=== PATIENT | male | born 1945 | race Caucasian/White ===

== ENCOUNTER 2018-09-20 08:29 | Inpatient (IN) | payer MEDICARE, OTHER, SELFPAY ==
[2018-09-20] VITALS (29 sets, daily range): BP systolic 96–170; BP diastolic 55–100; PULSE 45–88; RESP 14–27; TEMP 36.1–36.7; O2SAT 23–100; BMI 29.2; BMI 29.3
--- NOTE | 2018-09-20 08:46 | RAD_ITS ---
STUDY: X-RAY CHEST REASON FOR EXAM: Male, 73 years old. Chest pain. Shortness of breath. TECHNIQUE: Single AP portable view of the chest. COMPARISON: None. FINDINGS: EKG electrodes are seen. Mild increased linear markings at the lung bases suggests mild scarring. I suspect bilateral pleural plaques. This slightly more prominent on the right side. Normal size heart. Normal mediastinum and claire. Normal visualized pulmonary arteries. Normal visualized aortic arch and descending thoracic aorta. There are degenerative changes of the visualized thoracic spine. An anchor clip is seen overlying the left humeral head suggestive of prior rotator cuff surgery. There is no demonstrated abnormality of the visualized soft tissue structures of the upper abdomen. RAD/Chest 1 View (Portable) IMPRESSION: Findings suggest bilateral pleural plaques likely worse on the right side with mild linear scarring at the lung bases. Electronically Signed: Vini Wilburn MD at 9:29 EST Tel [phone], Service support ,
--- NOTE | 2018-09-20 08:46 | EKG12_ITS ---
Test Reason : Blood Pressure : / mmHG Vent. Rate : 064 BPM Atrial Rate : 064 BPM P-R Int : 156 ms QRS Dur : 076 ms QT Int : 408 ms P-R-T Axes : 057 026 011 degrees QTc Int : 420 ms Sinus rhythm with Premature atrial complexes with Aberrant conduction Possible Inferior infarct , age undetermined Abnormal ECG Confirmed by SATHISH POST, SHAHLA ([id number]), fashion editor CONSTANTINE SIMPSON ([id number]) on 09/21/2018 11:53:43 AM Referred By: CHRISTINA Confirmed By:SHAHLA BOWER MD
--- NOTE | 2018-09-20 08:49 | ED.VIS.GEN ---
History of Present Illness Chief Complaint: Chest Pain Informant: Patient, Family Onset: Weeks - 3-4 Context: Onset with activity Timing: Intermittent, Lasts - 15-20 min w/ most episodes Quality: tightness Location: left chest Current Severity: Moderate Maximum Severity: Moderate Worsened by: exertion, yawning/deep breathing Relieved by: rest usually, but not this AM Associated Symptoms: sob, weak, lightheaded Narrative: Patient has been having these symptoms for 3 or 4 weeks and they sound like stable angina. He had a stress test and an echocardiogram about 3 days ago at the [place] that were unremarkable, and then saw local cardiology Dr. Calderon, and was advised that if he continues having episodes that they should bring him to the hospital and he would plan on doing a heart cath because his symptoms are concerning. This morning, may have been present for 1-2 hours despite resting, and this is unusual and he feels very weak which is also new. Also new, radiation into the right upper extremity. No other radiations. The chest discomfort has a pleuritic component. No syncope. He denies any history of DVT or PE, leg pain or swelling, recent long travel or immobilization, or recent hospitalizations/surgery. Past Medical History - Allergies and Home Meds Allergies/Adverse Reactions: Allergies No Known Allergies Allergy (Verified 09/20/18 08:47) Past Medical History: None Surgical History: herniorrhaphy, - - both shoulders. both carpal tunnels. Lives: Spouse/ Significant Other Smoking Status: Never smoker Drugs: None Review of Systems General: Reports: Malaise. Denies: Chills, Fever, Sweats Eyes: Denies: Visual changes - bilaterally, Diplopia ENT: Reports: Rhinorrhea. Denies: Sore throat Cardiovascular: Reports: Chest pain. Denies: Palpitations, Heart racing Respiratory: Reports: Dyspnea. Denies: Cough, Dyspnea on exertion Gastrointestinal: Reports: Nausea - off and on. Denies: Abdominal pain, Vomiting, Diarrhea, Melena, Hematochezia Genitourinary: Denies: Dysuria, Hematuria, Frequency Musculoskeletal: Reports: Extremity Pain - right upper. Denies: Neck pain, Back pain, Swelling Skin: Denies: Rash, Wounds Neurological: Denies: Headache, Weakness, Parasthesia, Numbness Psych: Denies: Suicidal thoughts, Suicidal ideations Endocrine: Denies: Heat intolerance, Cold intolerance Hematologic: Denies: Easy bruising, Easy bleeding Allergy: Denies: Swelling of the mouth, Swelling of the tongue Physical Exam Vital Signs/Narrative: Vital Signs Temp Pulse Resp BP Pulse Ox 09/20/18 08:37 97.7 F L 64 24 H 137/100 H 99 Inital Vital Signs reviewed: Yes General: Well nourished, Well developed, - - appears uncomfortable, tachypneic w/o distress, generally weak, but keenly alert and conversational Head: Normocephalic, Atraumatic Eyes: Perrl, EOMI ENT: Moist mucous membranes, No rhinorrhea Neck: Supple, Nontender, No JVD Cardiovascular: Regular rate, Regular rhythm - w/ occasional irregularity, No murmurs Respiratory: No distress, CTA bilaterally, Chest nontender Abdomen: Soft, Nontender, Nondistended, Normal bowel sounds Back: Nontender, Normal Inspection Extremities: Nontender - incl no calf tenderness bilat, No edema Skin: Normal color, No rash Neurological: Alert, Oriented x3, Cranial nerves II-XII grossly intact, Normal Strength, Normal Sensation Psychological: Normal affect Diagnostic/Tx/Re-eval Impressions Chest X-Ray 09/20/18 08:46 IMPRESSION: Findings suggest bilateral pleural plaques likely worse on the right side with mild linear scarring at the lung bases. Electronically Signed: Vini Wilburn MD at 9:29 EST Tel [phone], Service support , Chest CTA 09/20/18 09:31 IMPRESSION: Calcified pleural plaques bilaterally. Mild scarring at the lung bases with areas of bronchiectasis. There is no evidence of a pulmonary embolism. Electronically Signed: Vini Wilburn MD at 10:40 EST Tel [phone], Service support , 09/20/18 08:46 Chest 1 View (Portable) [RAD] Stat 09/20/18 09:31 CTA Chest W/WO Contrast [CT] Stat Laboratory Results 09/20/18 09/20/18 09/20/18 08:55 08:55 08:55 WBC 5.7 RBC 4.77 Hgb 14.4 Hct 43.6 MCV 91.4 MCH 30.2 MCHC 33.0 RDW 13.6 RDW Differential 45.3 H Plt Count 164 MPV 10.7 Immature Gran % (Auto) 0.200 Neut % (Auto) 55.9 Lymph % (Auto) 29.4 [place] % (Auto) 11.7 H Eos % (Auto) 2.6 Baso % (Auto) 0.2 Absolute Neuts (auto) 3.2 Absolute Lymphs (auto) 1.69 Total Counted Not Reportable PT INR APTT 25.1 D-Dimer Quant (PE/DVT) 1.25 H* Sodium 140 Potassium 4.1 Chloride 108 H Carbon Dioxide 24.0 Anion Gap 8 BUN 15 Creatinine 0.96 Estim Creat Clear Calc 75.17 Est GFR (MDRD) Af Amer 99 Est GFR (MDRD) Non-Af 82 BUN/Creatinine Ratio 15.6 Glucose 100 Calcium 8.8 Troponin I < 0.015 09/20/18 09:12 WBC RBC Hgb Hct MCV MCH MCHC RDW RDW Differential Plt Count MPV Immature Gran % (Auto) Neut % (Auto) Lymph % (Auto) [place] % (Auto) Eos % (Auto) Baso % (Auto) Absolute Neuts (auto) Absolute Lymphs (auto) Total Counted PT 13.8 INR 1.1 APTT D-Dimer Quant (PE/DVT) Sodium Potassium Chloride Carbon Dioxide Anion Gap BUN Creatinine Estim Creat Clear Calc Est GFR (MDRD) Af Amer Est GFR (MDRD) Non-Af BUN/Creatinine Ratio Glucose Calcium Troponin I - Rhythm Strip Rhythm Strip: Sinus Rhythm Rate: 60 Ectopy: PVC(s), PAC(s) - EKG Initial EKG Interpretation: Sinus Rhythm, No Acute Injury Pattern, - - PVC, PAC. flat T's aVF and inverted in III but the rest are OK. No ST kecia/dep. - Medical Decision Making Patient symptoms are very concerning for unstable angina. His EKG shows no acute injury pattern, just ectopy. His troponin is negative and his blood work looks okay, but his d-dimer is elevated. Chest x-ray shows some scarring at the bases but is otherwise unremarkable. Discussed with Dr. Calderon several times, who advised doing the usual CT angiography of the chest to rule out PE as opposed to VQ scanning at this time, as it will not prevent him from being able to undergo heart cath if necessary. CTA was negative for pulmonary embolism. Incidentally noted was some basilar bronchiectasis and calcified plaques. Patient was given aspirin, followed by Brilinta and heparin bolus of 4000 units per cardiology, and nitroglycerin. After 2 nitroglycerin, his discomfort is a 1 and so nitroglycerin paste was placed on his chest. On reevaluation he is feeling well and chest pain-free. His CAT scan showed some calcifications in the coronary arteries. He is being observed in the ER until he is to be taken for heart catheterization. ED Disposition - Plan for ED Patient: Disposition: Acute Care Hospital [facility] Chief Complaint: Chest Pain Diagnosis: Unstable angina
--- NOTE | 2018-09-20 08:53 | ED.DCSUM_ITS ---
History of Present Illness Chief Complaint: Chest Pain Informant: Patient, Family Onset: Weeks - 3-4 Context: Onset with activity Timing: Intermittent, Lasts - 15-20 min w/ most episodes Quality: tightness Location: left chest Current Severity: Moderate Maximum Severity: Moderate Worsened by: exertion, yawning/deep breathing Relieved by: rest usually, but not this AM Associated Symptoms: sob, weak, lightheaded Narrative: Patient has been having these symptoms for 3 or 4 weeks and they sound like stable angina. He had a stress test and an echocardiogram about 3 days ago at the [place] that were unremarkable, and then saw local cardiology Dr. Calderon, and was advised that if he continues having episodes that they should bring him to the hospital and he would plan on doing a heart cath because his symptoms are concerning. This morning, may have been present for 1-2 hours despite resting, and this is unusual and he feels very weak which is also new. Also new, radiation into the right upper extremity. No other radiations. The chest disco mfort has a pleuritic component. No syncope. He denies any history of DVT or PE, leg pain or swelling, recent long travel or immobilization, or recent hospitalizations/surgery. Past Medical History - Allergies and Home Meds Allergies/Adverse Reactions: Allergies No Known Allergies Allergy (Verified 09/20/18 08:47) Past Medical History: None Surgical History: herniorrhaphy, - - both shoulders. both carpal tunnels. Lives: Spouse/ Significant Other Smoking Status: Never smoker Drugs: None Review of Systems General: Reports: Malaise. Denies: Chills, Fever, Sweats Eyes: Denies: Visual changes - bilaterally, Diplopia ENT: Reports: Rhinorrhea. Denies: Sore throat Cardiovascular: Reports: Chest pain. Denies: Palpitations, Heart racing Respiratory: Reports: Dyspnea. Denies: Cough, Dyspnea on exertion Gastrointestinal: Reports: Nausea - off and on. Denies: Abdominal pain, Vomiting, Diarrhea, Melena, Hematochezia Genitourinary: Denies: Dysuria, Hematuria, Frequency Musculoskeletal: Reports: Extremity Pain - right upper. Denies: Neck pain, Back pain, Swelling Skin: Denies: Rash, Wounds Neurological: Denies: Headache, Weakness, Parasthesia, Numbness Psych: Denies: Suicidal thoughts, Suicidal ideations Endocrine: Denies: Heat intolerance, Cold intolerance Hematologic: Denies: Easy bruising, Easy bleeding Allergy: Denies: Swelling of the mouth, Swelling of the tongue Physical Exam Vital Signs/Narrative: Vital Signs Temp Pulse Resp BP Pulse Ox 09/20/18 08:37 97.7 F L 64 24 H 137/100 H 99 Inital Vital Signs reviewed: Yes General: Well nourished, Well developed, - - appears uncomfortable, tachypneic w/o distress, generally weak, but keenly alert and conversational Head: Normocephalic, Atraumatic Eyes: Perrl, EOMI ENT: Moist mucous membranes, No rhinorrhea Neck: Supple, Nontender, No JVD Cardiovascular: Regular rate, Regular rhythm - w/ occasional irregularity, No murmurs Respiratory: No distress, CTA bilaterally, Chest nontender Abdomen: Soft, Nontender, Nondistended, Normal bowel sounds Back: Nontender, Normal Inspection Extremities: Nontender - incl no calf tenderness bilat, No edema Skin: Normal color, No rash Neurological: Alert, Oriented x3, Cranial nerves II-XII grossly intact, Normal Strength, Normal Sensation Psychological: Normal affect Diagnostic/Tx/Re-eval Impressions Chest X-Ray 09/20/18 08:46 IMPRESSION: Findings suggest bilateral pleural plaques likely worse on the right side with mild linear scarring at the lung bases. Electronically Signed: Vini Wilburn MD at 9:29 EST Tel [phone], Service support , Chest CTA 09/20/18 09:31 IMPRESSION: Calcified pleural plaques bilaterally. Mild scarring at the lung bases with areas of bronchiectasis. There is no evidence of a pulmonary embolism. Electronically Signed: Vini Wilburn MD at 10:40 EST Tel [phone], Service support , 09/20/18 08:46 Chest 1 View (Portable) [RAD] Stat 09/20/18 09:31 CTA Chest W/WO Contrast [CT] Stat Laboratory Results 09/20/18 09/20/18 09/20/18 08:55 08:55 08:55 WBC 5.7 RBC 4.77 Hgb 14.4 Hct 43.6 MCV 91.4 MCH 30.2 MCHC 33.0 RDW 13.6 RDW Differential 45.3 H Plt Count 164 MPV 10.7 Immature Gran % (Auto) 0.200 Neut % (Auto) 55.9 Lymph % (Auto) 29.4 [place] % (Auto) 11.7 H Eos % (Auto) 2.6 Baso % (Auto) 0.2 Absolute Neuts (auto) 3.2 Absolute Lymphs (auto) 1.69 Total Counted Not Reportable PT INR APTT 25.1 D-Dimer Quant (PE/DVT) 1.25 H* Sodium 140 Potassium 4.1 Chloride 108 H Carbon Dioxide 24.0 Anion Gap 8 BUN 15 Creatinine 0.96 Estim Creat Clear Calc 75.17 Est GFR (MDRD) Af Amer 99 Est GFR (MDRD) Non-Af 82 BUN/Creatinine Ratio 15.6 Glucose 100 Calcium 8.8 Troponin I < 0.015 09/20/18 09:12 WBC RBC Hgb Hct MCV MCH MCHC RDW RDW Differential Plt Count MPV Immature Gran % (Auto) Neut % (Auto) Lymph % (Auto) [place] % (Auto) Eos % (Auto) Baso % (Auto) Absolute Neuts (auto) Absolute Lymphs (auto) Total Counted PT 13.8 INR 1.1 APTT D-Dimer Quant (PE/DVT) Sodium Potassium Chloride Carbon Dioxide Anion Gap BUN Creatinine Estim Creat Clear Calc Est GFR (MDRD) Af Amer Est GFR (MDRD) Non-Af BUN/Creatinine Ratio Glucose Calcium Troponin I - Rhythm Strip Rhythm Strip: Sinus Rhythm Rate: 60 Ectopy: PVC(s), PAC(s) - EKG Initial EKG Interpretation: Sinus Rhythm, No Acute Injury Pattern, - - PVC, PAC. flat T's aVF and inverted in III but the rest are OK. No ST kecia/dep. - Medical Decision Making Patient symptoms are very concerning for unstable angina. His EKG shows no acute injury pattern, just ectopy. His troponin is negative and his blood work looks okay, but his d-dimer is elevated. Chest x-ray shows some scarring at the bases but is otherwise unremarkable. Discussed with Dr. Calderon several times, who advised doing the usual CT angiography of the chest to rule out PE as opposed to VQ scanning at this time, as it will not prevent him from being able to undergo heart cath if necessary. CTA was negative for pulmonary embolism. Incidentally noted was some basilar bronchiectasis and calcified plaques. Patient was given aspirin, followed by Brilinta and heparin bolus of 4000 units per cardiology, and nitroglycerin. After 2 nitroglycerin, his discomfort is a 1 and so nitroglycerin paste was placed on his chest. On reevaluation he is feeling well and chest pain-free. His CAT scan showed some calcifications in the coronary arteries. He is being observed in the ER until he is to be taken for heart catheterization. ED Disposition - Plan for ED Patient: Disposition: Acute Care Hospital [facility] Chief Complaint: Chest Pain Diagnosis: Unstable angina
[2018-09-20] MEDS: Ondansetron 4 MG/2 ML Vial IV (09:02)
[2018-09-20] MEDS: 0.9% Normal Saline 1,000 ML 250 ML IV (09:02)
[2018-09-20] MEDS: Aspirin 81 MG TAB.CHEW 324 MG PO (09:02)
[2018-09-20 09:11] LABS: Absolute Lymphocyte Count 1.69 X10^3/ul (0.83-4.51); Absolute Neutrophil Count 3.2 X10^3/uL (2.0-7.7); Basophil# 0.01 X10^3/uL; Basophil% 0.2 % (0-1); Eosinophil# 0.15 X10^3/uL; Eosinophils% 2.6 % (0-5); Hematocrit 43.6 % (40-54); Hemoglobin 14.4 g/dl (13.0-16.5); Lymphocyte # 1.69 X10^3/ul (4.0); Lymphocyte % 29.4 % (19-41); Mean Corpuscular Hgb 30.2 pg (27.0-32.0); Mean Corpuscular Volume 91.4 fL (80-94); Mean Platelet Vol. 10.7 fl (6.2-12.0); Monocyte# 0.67 X10^3/uL; Monocyte% 11.7 % (0-10); Neutrophil # 3.21 X10^3/uL (2.7-7.7); Neutrophil % 55.9 % (47-70); Platelet Count 164 K/mm3 (150-450); RBC Distribution Width CV 13.6 % (11.6-14.6); RBC Distribution Width SD 45.3 fl (35.1-43.9); Red Blood Count 4.77 M/mm3 (4.6-6.2); White Blood Count 5.7 K/mm3 (4.4-11.0)
[2018-09-20 09:13] LABS: POSITIVE COUNT NO; POSITIVE DIFFERENTIAL NO; POSITIVE MORPHOLOGY NO
[2018-09-20 09:17] LABS: Partial Thromboplast Time 25.1 Seconds (24.1-36.2)
[2018-09-20] MEDS: TICAGRELOR 90 MG TABLET 180 MG PO (09:20)
[2018-09-20] MEDS: Heparin Injection (Vial) 5,000 UNIT/ML VIAL 4000 UNIT IV (09:20)
[2018-09-20 09:22] LABS: Anion Gap 8 (5-15); BUN 15 mg/dL (7-18); BUN/Creat Ratio 15.6 RATIO (10-20); Calcium,Total 8.8 mg/dL (8.5-10.1); Chloride 108 mmol/L (98-107); Creatinine, Serum 0.96 mg/dL (0.70-1.30); EST Glomerular Filtration Rate 82 mL/min (>60); Est Glom Filt Rate - Afr Amer 99 mL/min (>60); Estimated Creatinine Clearance 75.17 ml/min; Glucose 100 mg/dL (74-106); Potassium 4.1 mmol/L (3.5-5.1); Sodium Level 140 mmol/L (136-145)
[2018-09-20 09:25] LABS: D-Dimer Quantitative (DVT/PE) 1.25 FEU/ug/m (0.27-0.49)
[2018-09-20 09:25] LABS: International Normalized Ratio 1.1; Prothrombin Time (Protime)PT. 13.8 SECONDS (11.7-14.9)
--- NOTE | 2018-09-20 09:25 | ED.RN ---
LAB CALL WITH CRITICAL RESULT D-DIMER OF 1.25. THIS NURSE NOTIFIED RAUL FREY WELL DR. VASQUEZ.
--- NOTE | 2018-09-20 09:30 | ECHOCS_ITS ---
Reason For Study: CHEST PAIN Procedure This was a 2D Doppler, Color Flow transthoracic echocardiogram. The study was technically difficult. Due to body habitus. Contrast injection was performed. Exam performed portable in ED. Left Ventricle Mild concentric left ventricular hypertrophy. The estimated ejection fraction is 75 %. Stage 1 diastolic dysfunction. No regional wall motion abnormalities noted. Right Ventricle Mildly dilated right ventricle. Normal systolic function. Atria Normal left atrium. Normal right atrium. Normal atrial septum. Mitral Valve The mitral valve is structurally normal. No prolapse or stenosis seen. Tricuspid Valve Normal tricuspid valve. Trivial tricuspid valve insufficiency. Right ventricular systolic pressure estimated to be 13 mmHg. Aortic Valve Normal aortic valve. Trisinus/trileaflet aortic valve. Pulmonic Valve The pulmonic valve is not well visualized. Great Vessels Normal aortic root. Normal arch. Normal inferior vena cava. Inferior vena cava collapse with sniff. Pericardium/Pleural No pericardial effusion. Medication Diluted definity 2.0ml given slow IV push to enhance endocardial definition. MMode/2D Measurements & Calculations LVIDd: 4.3 cm IVSd: 1.2 cm Ao root diam: 3.3 cm LVIDs: 2.7 cm LVPWd: 1.2 cm LA dimension: 3.7 cm RVDd: 3.7 cm FS: 36.9 % LAV(MOD-bp): 48.4 ml LA A4 area: 17.2 cm2 RA A4 area: 16.6 cm2 LAV(MOD-bp) Indexed: 22.5 ml/m2 LAV(MOD-sp2): 46.1 ml LAV(MOD-sp4): 45.1 ml Time Measurements MV dec time: 0.25 sec Doppler Measurements & Calculations MV E max justin: 61.6 cm/sec Lat Peak E' Justin: 9.6 cm/sec Med Peak E' Justin: 7.6 cm/sec MV A max justin: 72.0 cm/sec E/E' lat: 6.4 E/E' med: 8.1 MV E/A: 0.86 Ao V2 max: 127.1 cm/sec LV V1 max: 95.4 cm/sec PA V2 max: 80.0 cm/sec Ao max P.5 mmHg LV V1 max P.6 mmHg TR max justin: 144.8 cm/sec TR max P.4 mmHg Interpretation Summary The estimated ejection fraction is 75 %. Stage 1 diastolic dysfunction. Mildly dilated right ventricle. Trivial tricuspid valve insufficiency. Right ventricular systolic pressure estimated to be 13 mmHg. The study was technically difficult. There is no comparison study available. Contrast injection was performed. Ordering Physician: Norris Calderon Referring Physician: [facility] Performed By: Sandrita Daly RDCS, RVT
--- NOTE | 2018-09-20 09:31 | CT_ITS ---
STUDY: CTA CHEST REASON FOR EXAM: Male, 73 years old. Chest pain and shortness of breath. RADIATION DOSAGE (If Supplied By Facility): CTDIvol = ( 14.73 ) mGy, DLP = ( 618.10 ) mGycm TECHNIQUE: The examination was performed with the intravenous administration of 100 ml of Isovue 370 contrast material. Post-processing of the angiographic images was performed, with multiplanar reformation and 3D reconstruction. Individualized dose optimization techniques were used for this CT. COMPARISON: Comparison is made with prior chest radiograph done earlier in the day. FINDINGS: Normal enhancement of the main pulmonary artery and right and left pulmonary arteries. Normal enhancement of the bilateral peripheral pulmonary arteries. There is no demonstrated pulmonary embolism. Normal thoracic aorta and visualized great vessels. There is no demonstrated aortic dissection. There are calcifications of the coronary arteries. Normal mediastinum. Normal hilar regions. Normal visualized trachea and bronchi. The lungs are well expanded. Mild degree of increased linear markings with areas of confluence at both lung bases suggestive of vertebrobasilar scarring. Mild degree of bronchiectasis at the lung bases. There is evidence of bilateral pleural plaque calcifications. Normal chest wall structures. There are degenerative changes of thoracic spine. Normal visualized upper abdomen. CT/CTA Chest W/WO Contrast IMPRESSION: Calcified pleural plaques bilaterally. Mild scarring at the lung bases with areas of bronchiectasis. There is no evidence of a pulmonary embolism. Electronically Signed: Vini Wilburn MD at 10:40 EST Tel [phone], Service support ,
[2018-09-20] MEDS: Nitroglycerin Oint 1 INCH PACKET 0.5 INCH TRANSDERM. (10:03)
[2018-09-20] MEDS: 0.9% Normal Saline 1,000 ML 150 ML IV (12:30)
--- NOTE | 2018-09-20 12:33 | CL.I_ITS ---
Patient Name: MEHRAN FREY Study Date: 09/20/2018 Performing: Norris Calderon MD Ht: 70.86 inches 180 cm : 1945 Wt: 209.44 lbs 95 kg Age: 73 Gender: male BSA: 2.15 PROCEDURE(S) PERFORMED [id number]/LV CLINICAL PROFILE AND CO-MORBIDITIES Indications: ACS > 24 hrs, Worsening Angina, Suspected CAD Heart Failure: None Stress/Imaging Standard Exercise Stress Test: Yes Result: Negative Angina Classification Anginal Classification w/in 2 Weeks: CCS IV CAD Presentations: Unstable angina. 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 Pt had no an ginal symptoms during balloon/stent deployment. RECOMMENDATIONS Referred for immediate PCI Highly recommend quitting all tobacco products Follow up with primary saddle maker Risk factor modification ASA Indefinitley Plavix for at least 12 months Routine post interventional care Refer for Outpatient Cardiac Rehab Manual sheath removal per protocol Successful Mynx closure. Check ESR to eval for pleuritis/pericarditis. Follow up with Dr. Calderon DESCRIPTION OF PROCEDURE The patient arrived to the procedure lab. The risks and benefits of the procedure as well as a full d escription of our services here and lack of surgical backup were fully explained to the patient and/o r their significant other prior to the catheterization. The Timeout was completed, verifying the juice ect patient and procedure. The patient's procedural site was prepped and draped in the usual fashion. Local anesthetic was given subcutaneously to right groin region with Lidocaine 2%. Using a modified Seldinger technique, arterial access was obtained via the right femoral artery, a 4Fr sheath was inse rted. Left Coronary Artery selective angiography was performed in multiple views using a 4 Fr. JL5 c atheter. Right Coronary Artery selective angiography was then performed in multiple views using a 4 F r. 3DRC catheter. Left Ventriculography was performed in BEE projection using a 4 Fr. Pigtail cathete r. LV to AO pullback pressures were then recordedThe images were reviewed and options discussed. A decision was then made to proceed with an Intervention, IVUS or other adjunct procedure. Arterial sheath was exchanged for a 6 Fr Sheath. Angiogram performed pre balloon dilatation. EBU 3.75 Guide catheter was inserted and engaged into the LCA. Arterial sheath was exchanged for a 6 Fr , 45 cm Sheath. EBU 3.5 Guide catheter was inserted and engaged into the LCA. BMW Guide wire was advan francesca to the 1st Diagonal. 2.0x8 Emerge Balloon catheter was advanced across lesion in the first diagon al, mid. PTCA balloon inflated at 8 atms for 53 secs. Angiogram performed post balloon dilatation. 2. 5x12 Synergy Drug Eluting stent was advanced across the lesion in the first diagonal, mid. Angiogram performed post stent deployment. The arterial sheath was pulled and a Mynx closure device was deplo yed for hemostasis CORONARY ANGIOGRAPHY DOMINANCE: Right Dominant LEFT MAIN: Angiographically normal LEFT ANTERIOR DECENDING ARTERY: Angiographically normal DIAGONAL 1: Mid - 75 % Stenosis CIRCUMFLEX ARTERY: Mild luminal irregularities less than 30% RIGHT CORONARY ARTERY: Angiographically normal INTERVENTION INFORMATION LESION SITE: 1st Diagonal (Mid) Lesion Complexity: Non-High/Non-C, lesion at bifurcation: No, thrombus present: No, lesion length: 12 mm, culprit lesion: Yes Pre Stenosis: 75 % Pre intervention GRZEGORZ flow: 3 PROCEDURE: Drug Eluting Stent with pre dilatation. Post Stenosis: 0 % Post intervention GRZEGORZ flow: 3 Lesion Devices: Medtronic 6 Fr EBU3.75 100cm Guide Catheter Leigh .014 BMW [place] Straight 190cm Medtronic 6 Fr EBU3.5 100cm Guide Catheter Juan Sci EMERGE MR 2.00x08 BALLOON Juan Sci Synergy MR CANDY 2.50x12 COMPLICATIONS No Complications PROCEDURE MEDICATIONS Oxygen: 2 L/min via nasal cannula Heparin 6000 unit(s) IV 09/20/2018 11:58:54 Nitro 200 mcg IC 09/20/2018 12:04:16 Nitro 200 mcg IC 09/20/2018 12:04:16 IV Bolus: .9 NaCl 650 ml total 09/20/2018 12:18:26 SUMMARY OF HEMODYNAMIC DATA Time AIR REST ECG 11:22:59 AO 75/50 (61) SA 11:50:25 LV 105/-6, 14 11:56:21 LV 105/-5, 14 11:56:23 LVp 106/-8, 15 11:56:30 AOp 104/52 (70) 11:56:35 AO 95/47 (63) 11:56:45 Signed By Norris Calderon MD On 09/20/2018 12:32:21 Norris Caledron MD
--- NOTE | 2018-09-20 13:59 | EKG12_ITS ---
Test Reason : POST PCI Blood Pressure : / mmHG Vent. Rate : 051 BPM Atrial Rate : 051 BPM P-R Int : 152 ms QRS Dur : 074 ms QT Int : 454 ms P-R-T Axes : 038 047 025 degrees QTc Int : 418 ms Sinus bradycardia with occasional Premature ventricular complexes Otherwise normal ECG When compared with ECG of 20-SEP-2018 08:37, MANUAL COMPARISON REQUIRED, DATA IS UNCONFIRMED Confirmed by SATHISH POST, SHAHLA ([id number]), assignment editor CONSTANTINE SIMPSON ([id number]) on 09/24/2018 7:56:22 AM Referred By: RADHA Confirmed By:SHAHLA BOWER MD
--- NOTE | 2018-09-20 14:28 | PCM.HP.STD ---
Problem List (1) Stable angina Status: Acute History of Present Illness Date of Admission: 09/20/18 Chief Complaint: chest pain The patient is a 73 year old M who for several weeks has been having chest pain with exertion. This chest pain associated with shortness of breath and weakness. Symptoms resolved when the patient stops doing the activity only to recur once he initiates intense activity again. Patient cell cardiology and was sent for a heart catheterization today. He was found to have 75% stenosis to the mid diagonal artery. He had a drug-eluting stent placed in the first diagonal artery. Post catheterization, patient is feeling well and has no chest pain or shortness of breath at this time. Patient admitted to the ICU from the catheterization lab. [] Past Medical History Past Medical History (Chronic Problems): Chronic Problems (Last Updated 09/17/18 @ 19:01 by Jojo Ruiz) Benign positional vertigo (Chronic) Hyperlipidemia (Chronic) Hypertension (Chronic) Medical History: Medical History (Last Updated 09/20/18 @ 14:31 by Ren Mayen DO) Benign positional vertigo (Chronic) H81.10 Hyperlipidemia (Chronic) E78.5 Hypertension (Chronic) I10 CAD (coronary artery disease) I25.10 Allergies No Known Allergies Allergy (Verified 09/20/18 08:47) Home Medications: Ambulatory Orders Medication Instructions Recorded aspirin 81 mg tablet,delayed 81 mg PO DAILY 09/18/18 release atorvastatin 20 mg tablet 20 mg PO DAILY #30 tab 09/18/18 nitroglycerin 0.4 mg sublingual 0.4 mg SUBLINGUAL Q5-15M PRN #25 09/18/18 tablet tab ranitidine 150 mg tablet 150 mg PO QHS 09/18/18 Surgical History: herniorrhaphy, - - both shoulders. both carpal tunnels. Lives: Spouse/ Significant Other Smoking Status: Former smoker Drugs: None - *Family History Maternal Family History: Family History (Last Reviewed 09/20/18 @ 14:32 by Ren Mayen DO) Father CAD (coronary artery disease) Mother CAD (coronary artery disease) Colon cancer Brother Lung cancer Sister Alzheimer's disease Brother Lymphoma Review of Systems Constitutional: Denies: Anorexia, Chills, Fever Eyes: Denies: Blurred vision, Double vision HEENT: Denies: Head Aches, Sinus Congestion, Sinus Drainage Cardiovascular: Reports: Chest Pain. Denies: Palpitations Respiratory: Reports: Shortness of breath upon exertion. Denies: Cough, Shortness of breath at rest, Sputum production Gastrointestinal: Denies: Abdominal Pain, Nausea, Vomiting Genitourinary: Denies: Dysuria Musculoskeletal: Denies: Joint Pain, Joint Tenderness Skin: Denies: Rash, Wounds Neurological: Denies: Numbness, Tingling, Focal weakness Psychiatric: Denies: Anxiety, Depression Hematologic/ Lymphatic: Denies: Easy Bruising, Easy Bleeding, Hx of blood clot Comment: A 10 point review of systems were negative except as mentioned in the history of present illness and the other review of systems. VTE Information - Inpt Only VTE Present on Admission: No VTE Mechan Device Prophylaxis: SCD's Patient Problems: Active and Suspected Problems (Last Updated 09/17/18 @ 19:01 by Jojo Ruiz) Unstable angina (Acute) Stable angina (Acute) - Physical Exam General: Alert, Cooperative, No apparent distress HEENT: Atraumatic, Normocephalic Oral: Moist Mucosa, No Gingival or Mucosal Lesions/ Ulcerations Neck: No Nodes, Thyroid Normal Size and Texture Lungs: Clear to auscultation, Normal air movement, No rhonchi, No wheeze Cardiovascular: Regular rate, Regular Rhythm, Normal S1, Normal S2, No murmurs Abdomen: Bowel Sounds Present, Soft, Non Tender, Non-Distended, No Hepato-splenomegaly Extremities: No edema, No Calf Tenderness Skin: No rashes, No breakdown Musculoskeletal: No Tenderness to Palpation of Joints or Extremities, No Muscle Wasting Psych/Mental Status: Normal Affect, Appropriate Vital Signs Temp Pulse Resp BP Pulse Ox 36.3 C L 50 L 27 H 111/66 100 09/20/18 12:51 09/20/18 12:51 09/20/18 12:51 09/20/18 12:51 09/20/18 12:51 Oxygen Flow Rate (L/min) 2 Oxygen Delivery Method Room Air Weight: 95.254 kg Body Mass Index (BMI) 29.2 Laboratory Tests Past 24 Hrs 09/20/18 09/20/18 09/20/18 08:55 08:55 08:55 WBC 5.7 RBC 4.77 Hgb 14.4 Hct 43.6 MCV 91.4 MCH 30.2 MCHC 33.0 RDW 13.6 RDW Differential 45.3 H Plt Count 164 MPV 10.7 Immature Gran % (Auto) 0.200 Neut % (Auto) 55.9 Lymph % (Auto) 29.4 [place] % (Auto) 11.7 H Eos % (Auto) 2.6 Baso % (Auto) 0.2 Absolute Neuts (auto) 3.2 Absolute Lymphs (auto) 1.69 Total Counted Not Reportable ESR PT INR APTT 25.1 D-Dimer Quant (PE/DVT) 1.25 H* Sodium 140 Potassium 4.1 Chloride 108 H Carbon Dioxide 24.0 Anion Gap 8 BUN 15 Creatinine 0.96 Estim Creat Clear Calc 75.17 Est GFR (MDRD) Af Amer 99 Est GFR (MDRD) Non-Af 82 BUN/Creatinine Ratio 15.6 Glucose 100 Calcium 8.8 Troponin I < 0.015 09/20/18 09/20/18 08:55 09:12 WBC RBC Hgb Hct MCV MCH MCHC RDW RDW Differential Plt Count MPV Immature Gran % (Auto) Neut % (Auto) Lymph % (Auto) [place] % (Auto) Eos % (Auto) Baso % (Auto) Absolute Neuts (auto) Absolute Lymphs (auto) Total Counted ESR Pending PT 13.8 INR 1.1 APTT D-Dimer Quant (PE/DVT) Sodium Potassium Chloride Carbon Dioxide Anion Gap BUN Creatinine Estim Creat Clear Calc Est GFR (MDRD) Af Amer Est GFR (MDRD) Non-Af BUN/Creatinine Ratio Glucose Calcium Troponin I Assessment/Plan All Active Problems (Last Updated 09/17/18 @ 19:01 by Jojo Ruiz) Unstable angina (Acute) Stable angina (Acute) Shortness of breath (Acute) Chest pain (Acute) 1. Stable angina With a 75% stenosis of the mid diagonal artery. Status post drug-eluting stent to the diagonal artery. Patient currently being monitored in the ICU post cardiac catheterization with stent Continue with statin, aspirin and Brilinta Patient currently on bedrest until 1630 2. DVT prophylaxis with SCDs. Code Visit OBSV E&M: 58499 Initial observation care L2
[2018-09-20 14:30] LABS: Erythrocyte Sedimentation Rate 6 mm/hr (0-20)
--- NOTE | 2018-09-20 14:32 | HP.PCM_ITS ---
Problem List (1) Stable angina Status: Acute History of Present Illness Date of Admission: 09/20/18 Chief Complaint: chest pain The patient is a 73 year old M who for several weeks has been having chest pain with exertion. This chest pain associated with shortness of breath and weakness. Symptoms resolved when the patient stops doing the activity only to recur once he initiates intense activity again. Patient cell cardiology and was sent for a heart catheterization today. He was found to have 75% stenosis to the mid diagonal artery. He had a drug-eluting stent placed in the first diagonal artery. Post catheterization, patient is feeling well and has no chest pain or shortness of breath at this time. Patient admitted to the ICU from the catheterization lab. [] Past Medical History Past Medical History (Chronic Problems): Chronic Problems (Last Updated 09/17/18 @ 19:01 by Jojo Ruiz) Benign positional vertigo (Chronic) Hyperlipidemia (Chronic) Hypertension (Chronic) Medical History: Medical History (Last Updated 09/20/18 @ 14:31 by Ren Mayen DO) Benign positional vertigo (Chronic) H81.10 Hyperlipidemia (Chronic) E78.5 Hypertension (Chronic) I10 CAD (coronary artery disease) I25.10 Allergies No Known Allergies Allergy (Verified 09/20/18 08:47) Home Medications: Ambulatory Orders Medication Instructions Recorded aspirin 81 mg tablet,delayed 81 mg PO DAILY 09/18/18 release atorvastatin 20 mg tablet 20 mg PO DAILY #30 tab 09/18/18 nitroglycerin 0.4 mg sublingual 0.4 mg SUBLINGUAL Q5-15M PRN #25 09/18/18 tablet tab ranitidine 150 mg tablet 150 mg PO QHS 09/18/18 Surgical History: herniorrhaphy, - - both shoulders. both carpal tunnels. Lives: Spouse/ Significant Other Smoking Status: Former smoker Drugs: None - *Family History Maternal Family History: Family History (Last Reviewed 09/20/18 @ 14:32 by Ren Mayen DO) Father CAD (coronary artery disease) Mother CAD (coronary artery disease) Colon cancer Brother Lung cancer Sister Alzheimer's disease Brother Lymphoma Review of Systems Constitutional: Denies: Anorexia, Chills, Fever Eyes: Denies: Blurred vision, Double vision HEENT: Denies: Head Aches, Sinus Congestion, Sinus Drainage Cardiovascular: Reports: Chest Pain. Denies: Palpitations Respiratory: Reports: Shortness of breath upon exertion. Denies: Cough, Shortness of breath at rest, Sputum production Gastrointestinal: Denies: Abdominal Pain, Nausea, Vomiting Genitourinary: Denies: Dysuria Musculoskeletal: Denies: Joint Pain, Joint Tenderness Skin: Denies: Rash, Wounds Neurological: Denies: Numbness, Tingling, Focal weakness Psychiatric: Denies: Anxiety, Depression Hematologic/ Lymphatic: Denies: Easy Bruising, Easy Bleeding, Hx of blood clot Comment: A 10 point review of systems were negative except as mentioned in the history of present illness and the other review of systems. VTE Information - Inpt Only VTE Present on Admission: No VTE Mechan Device Prophylaxis: SCD's Patient Problems: Active and Suspected Problems (Last Updated 09/17/18 @ 19:01 by Jojo Ruiz) Unstable angina (Acute) Stable angina (Acute) - Physical Exam General: Alert, Cooperative, No apparent distress HEENT: Atraumatic, Normocephalic Oral: Moist Mucosa, No Gingival or Mucosal Lesions/ Ulcerations Neck: No Nodes, Thyroid Normal Size and Texture Lungs: Clear to auscultation, Normal air movement, No rhonchi, No wheeze Cardiovascular: Regular rate, Regular Rhythm, Normal S1, Normal S2, No murmurs Abdomen: Bowel Sounds Present, Soft, Non Tender, Non-Distended, No Hepato- splenomegaly Extremities: No edema, No Calf Tenderness Skin: No rashes, No breakdown Musculoskeletal: No Tenderness to Palpation of Joints or Extremities, No Muscle Wasting Psych/Mental Status: Normal Affect, Appropriate Vital Signs Temp Pulse Resp BP Pulse Ox 36.3 C L 50 L 27 H 111/66 100 09/20/18 12:51 09/20/18 12:51 09/20/18 12:51 09/20/18 12:51 09/20/18 12:51 Oxygen Flow Rate (L/min) 2 Oxygen Delivery Method Room Air Weight: 95.254 kg Body Mass Index (BMI) 29.2 Laboratory Tests Past 24 Hrs 09/20/18 09/20/18 09/20/18 08:55 08:55 08:55 WBC 5.7 RBC 4.77 Hgb 14.4 Hct 43.6 MCV 91.4 MCH 30.2 MCHC 33.0 RDW 13.6 RDW Differential 45.3 H Plt Count 164 MPV 10.7 Immature Gran % (Auto) 0.200 Neut % (Auto) 55.9 Lymph % (Auto) 29.4 [place] % (Auto) 11.7 H Eos % (Auto) 2.6 Baso % (Auto) 0.2 Absolute Neuts (auto) 3.2 Absolute Lymphs (auto) 1.69 Total Counted Not Reportable ESR PT INR APTT 25.1 D-Dimer Quant (PE/DVT) 1.25 H* Sodium 140 Potassium 4.1 Chloride 108 H Carbon Dioxide 24.0 Anion Gap 8 BUN 15 Creatinine 0.96 Estim Creat Clear Calc 75.17 Est GFR (MDRD) Af Amer 99 Est GFR (MDRD) Non-Af 82 BUN/Creatinine Ratio 15.6 Glucose 100 Calcium 8.8 Troponin I < 0.015 09/20/18 09/20/18 08:55 09:12 WBC RBC Hgb Hct MCV MCH MCHC RDW RDW Differential Plt Count MPV Immature Gran % (Auto) Neut % (Auto) Lymph % (Auto) [place] % (Auto) Eos % (Auto) Baso % (Auto) Absolute Neuts (auto) Absolute Lymphs (auto) Total Counted ESR Pending PT 13.8 INR 1.1 APTT D-Dimer Quant (PE/DVT) Sodium Potassium Chloride Carbon Dioxide Anion Gap BUN Creatinine Estim Creat Clear Calc Est GFR (MDRD) Af Amer Est GFR (MDRD) Non-Af BUN/Creatinine Ratio Glucose Calcium Troponin I Assessment/Plan All Active Problems (Last Updated 09/17/18 @ 19:01 by Jojo Ruiz) Unstable angina (Acute) Stable angina (Acute) Shortness of breath (Acute) Chest pain (Acute) 1. Stable angina * With a 75% stenosis of the mid diagonal artery. Status post drug-eluting stent to the diagonal artery. * Patient currently being monitored in the ICU post cardiac catheterization with stent * Continue with statin, aspirin and Brilinta * Patient currently on bedrest until 1630 2. DVT prophylaxis with SCDs. Code Visit OBSV E&M: 19615 Initial observation care L2
[2018-09-20] MEDS: Acetaminophen 325 MG Tablet 650 MG PO (14:33)
[2018-09-20] MEDS: Pantoprazole Sodium 20 MG Tablet PO (14:37)
--- NOTE | 2018-09-20 15:21 | CASEMGMT ---
RN CM NOTE: Received message from Beatris from [facility], requesting intake information on pt, including Dx, Admit date, Dr following pt and CM. Faxed this information, demographics, and clinical information to [facility]: Samra Spear @ [phone]. [facility] PH: [phone] Beatris extension [phone]. . Anahy RIVERAN RN CM
[2018-09-20] MEDS: TICAGRELOR 90 MG TABLET PO (21:10)
[2018-09-20] MEDS: Atorvastatin Calcium 20 MG Tablet PO (21:10)
[2018-09-21] VITALS (10 sets, daily range): BP systolic 95–134; BP diastolic 47–76; PULSE 48–73; RESP 8–18; TEMP 36.6–36.8; O2SAT 94–100; BMI 29.2
[2018-09-21 04:34] LABS: Hematocrit 40.1 % (40-54); Hemoglobin 13.5 g/dl (13.0-16.5); Mean Corp Hgb Conc 33.7 g/gl (32-36); Mean Corpuscular Hgb 30.8 pg (27.0-32.0); Mean Corpuscular Volume 91.6 fL (80-94); Mean Platelet Vol. 10.8 fl (6.2-12.0); Platelet Count 143 K/mm3 (150-450); RBC Distribution Width CV 13.8 % (11.6-14.6); RBC Distribution Width SD 45.9 fl (35.1-43.9); Red Blood Count 4.38 M/mm3 (4.6-6.2); White Blood Count 5.7 K/mm3 (4.4-11.0)
[2018-09-21 04:53] LABS: Scan Indicated on CBC? Y/N NO
[2018-09-21 04:58] LABS: Anion Gap 8 (5-15); BUN 12 mg/dL (7-18); BUN/Creat Ratio 13.7 RATIO (10-20); Chloride 111 mmol/L (98-107); Cholesterol 187 mg/dL (200); Creatinine, Serum 0.87 mg/dL (0.70-1.30); EST Glomerular Filtration Rate 91 mL/min (>60); Est Glom Filt Rate - Afr Amer 111 mL/min (>60); Estimated Creatinine Clearance 82.95 ml/min; Glucose 80 mg/dL (74-106); High Density Lipoprotein 26 mg/dL; Potassium 3.7 mmol/L (3.5-5.1); Sodium Level 142 mmol/L (136-145); Triglycerides 111 mg/dL; Very Low Density Lipoprotein 22 mg/dL (5-40)
--- NOTE | 2018-09-21 07:57 | PCM.DC ---
- Discharge Diagnoses Current Active Problems: Current Active and Chronic Problems (Last Updated 09/20/18 @ 15:44 by Jojo Ruiz) History of left heart catheterization (Chronic 09/20/18) Stented coronary artery (Chronic 09/20/18) CANDY to mid Diag 1 (2.5 X 12 [employer]) per Dr. Calderon @ [facility] Atherosclerotic heart disease of [place] coronary artery without angina pectoris (Chronic) CANDY to mid Diag 1 (2.5 X 12 [employer]) per Dr. Calderon @ [facility] Unstable angina (Acute) Stable angina (Acute) You will use the following diet at home:: Cardiac Your food should be the consistency of: Regular Your liquids should be the consistency of: Regular/Thin Discharge Activity: Return to Normal Activity Call your doctor if you observe: Shortness of breath, Chest pain Instructions: ED Chest Pain NonCardiac Allergies/Adverse Reactions: Allergies No Known Allergies Allergy (Verified 09/20/18 08:47) Medications to take at Discharge aspirin 81 mg tablet,delayed release 81 mg PO DAILY 09/18/18 atorvastatin 20 mg tablet 20 mg PO DAILY #30 tab 09/18/18 nitroglycerin 0.4 mg sublingual tablet 0.4 mg SUBLINGUAL Q5-15M PRN #25 tab 09/18/18 ranitidine 150 mg tablet 150 mg PO QHS 09/18/18 Ticagrelor [Brilinta] 90 mg PO BID #60 tablet 09/21/18 The following prescriptions were given: Ticagrelor [Brilinta] 90 mg PO BID #60 tablet Primary Care Physician: [facility] Doctor,Out of [Primary Care Provider] - Test Results: Test results from this visit will be discussed in further detail at your follow-up appointment, if applicable. Please Follow Up With: Norris Calderon MD When: 2 weeks Proposed Discharge Date: 09/21/18
--- NOTE | 2018-09-21 07:59 | PCM.DC.SUM ---
Discharge Date and Diagnosis - Problem List Patient Problems: Active and Suspected Problems (Last Updated 09/20/18 @ 15:44 by Jojo Ruiz) Unstable angina (Acute) Stable angina (Acute) Date of Admission: 09/20/18 Date of Discharge: 09/21/18 - Primary Discharge Diagnosis Active and Suspected Problems (Last Updated 09/20/18 @ 15:44 by Jojo Ruiz) Unstable angina (Acute) Stable angina (Acute) - Secondary Discharge Diagnosis Chronic Problems (Last Updated 09/20/18 @ 15:44 by Jojo Ruiz) History of left heart catheterization (Chronic 09/20/18) Stented coronary artery (Chronic 09/20/18) CANDY to mid Diag 1 (2.5 X 12 [employer]) per Dr. Calderon @ [facility] Atherosclerotic heart disease of [place] coronary artery without angina pectoris (Chronic) CANDY to mid Diag 1 (2.5 X 12 Prom[employer]) per Dr. Calderon @ [facility] Benign positional vertigo (Chronic) Hyperlipidemia (Chronic) Hypertension (Chronic) Hospital Course and Treatment Imaging Results: Clinical Impression(s) from Imaging Studies Chest X-Ray 09/20/18 08:46 IMPRESSION: Findings suggest bilateral pleural plaques likely worse on the right side with mild linear scarring at the lung bases. Electronically Signed: Vini Wilburn MD at 9:29 EST Tel [phone], Service support , Chest CTA 09/20/18 09:31 IMPRESSION: Calcified pleural plaques bilaterally. Mild scarring at the lung bases with areas of bronchiectasis. There is no evidence of a pulmonary embolism. Electronically Signed: Vini Wilburn MD at 10:40 EST Tel [phone], Service support , Procedures: Cardiac catheterization Summary of Care Provided: The patient is a 73 year old M presents with exertional angina. Patient had a CANDY to diagonal artery for 75% stenosis. His post-cath hospitalization was uncomplicated. Patient will be discharged home pending approval by cardiology.[] Patient Problems: Active and Suspected Problems (Last Updated 09/20/18 @ 15:44 by Jojo Ruiz) Unstable angina (Acute) Stable angina (Acute) - Physical Exam General: Alert, Cooperative, No apparent distress HEENT: Atraumatic, Normocephalic Oral: Moist Mucosa, No Gingival or Mucosal Lesions/ Ulcerations Lungs: Clear to auscultation, Normal air movement, No rhonchi, No wheeze Cardiovascular: Regular rate, Regular Rhythm, Normal S1, Normal S2, No murmurs Abdomen: Bowel Sounds Present, Soft, Non Tender, Non-Distended, No Hepato-splenomegaly Vital Signs Temp Pulse Resp BP Pulse Ox 36.8 C 66 15 130/69 H 100 09/21/18 04:00 09/21/18 06:00 09/21/18 06:00 09/21/18 06:00 09/21/18 06:00 Oxygen Flow Rate (L/min) 2 Oxygen Delivery Method Room Air Weight: 95.5 kg Body Mass Index (BMI) 29.2 Intake and Output for Last 24 Hours 09/19/18 09/20/18 09/21/18 23:59 23:59 23:59 Intake Total 1620 / 1620 90 / 90 Balance 1620 / 1620 90 / 90 Laboratory Tests Past 24 Hrs 09/20/18 09/20/18 09/20/18 08:55 08:55 08:55 WBC 5.7 RBC 4.77 Hgb 14.4 Hct 43.6 MCV 91.4 MCH 30.2 MCHC 33.0 RDW 13.6 RDW Differential 45.3 H Plt Count 164 MPV 10.7 Immature Gran % (Auto) 0.200 Neut % (Auto) 55.9 Lymph % (Auto) 29.4 [place] % (Auto) 11.7 H Eos % (Auto) 2.6 Baso % (Auto) 0.2 Absolute Neuts (auto) 3.2 Absolute Lymphs (auto) 1.69 Total Counted Not Reportable ESR PT INR APTT 25.1 D-Dimer Quant (PE/DVT) 1.25 H* Sodium 140 Potassium 4.1 Chloride 108 H Carbon Dioxide 24.0 Anion Gap 8 BUN 15 Creatinine 0.96 Estim Creat Clear Calc 75.17 Est GFR (MDRD) Af Amer 99 Est GFR (MDRD) Non-Af 82 BUN/Creatinine Ratio 15.6 Glucose 100 Calcium 8.8 Troponin I < 0.015 Triglycerides Cholesterol LDL Cholesterol VLDL Cholesterol HDL Cholesterol 09/20/18 09/20/18 09/21/18 08:55 09:12 04:20 WBC 5.7 RBC 4.38 L Hgb 13.5 Hct 40.1 MCV 91.6 MCH 30.8 MCHC 33.7 RDW 13.8 RDW Differential 45.9 H Plt Count 143 L MPV 10.8 Immature Gran % (Auto) Neut % (Auto) Lymph % (Auto) [place] % (Auto) Eos % (Auto) Baso % (Auto) Absolute Neuts (auto) Absolute Lymphs (auto) Total Counted ESR 6 PT 13.8 INR 1.1 APTT D-Dimer Quant (PE/DVT) Sodium Potassium Chloride Carbon Dioxide Anion Gap BUN Creatinine Estim Creat Clear Calc Est GFR (MDRD) Af Amer Est GFR (MDRD) Non-Af BUN/Creatinine Ratio Glucose Calcium Troponin I Triglycerides Cholesterol LDL Cholesterol VLDL Cholesterol HDL Cholesterol 09/21/18 04:20 WBC RBC Hgb Hct MCV MCH MCHC RDW RDW Differential Plt Count MPV Immature Gran % (Auto) Neut % (Auto) Lymph % (Auto) [place] % (Auto) Eos % (Auto) Baso % (Auto) Absolute Neuts (auto) Absolute Lymphs (auto) Total Counted ESR PT INR APTT D-Dimer Quant (PE/DVT) Sodium 142 Potassium 3.7 Chloride 111 H Carbon Dioxide 23.0 Anion Gap 8 BUN 12 Creatinine 0.87 Estim Creat Clear Calc 82.95 Est GFR (MDRD) Af Amer 111 Est GFR (MDRD) Non-Af 91 BUN/Creatinine Ratio 13.7 Glucose 80 Calcium 8.0 L Troponin I Triglycerides 111 Cholesterol 187 LDL Cholesterol 139 H VLDL Cholesterol 22 HDL Cholesterol 26 L Discharge Diet: Low fat/ Low Cholesterol Discharge Activity: Return to Normal Activity Call your doctor if you observe: Shortness of breath, Chest pain Home Medications: Medications to take at Discharge aspirin 81 mg tablet,delayed release 81 mg PO DAILY 09/18/18 atorvastatin 20 mg tablet 20 mg PO DAILY #30 tab 09/18/18 nitroglycerin 0.4 mg sublingual tablet 0.4 mg SUBLINGUAL Q5-15M PRN #25 tab 09/18/18 ranitidine 150 mg tablet 150 mg PO QHS 09/18/18 Ticagrelor [Brilinta] 90 mg PO BID #60 tablet 09/21/18 Following Prescrptions Were Given to Patient: Ticagrelor [Brilinta] 90 mg PO BID #60 tablet Primary Care Physician: [facility] Doctor,Out of [Primary Care Provider] - Please Follow Up With: Norris Calderon MD When: 2 weeks Patient Instructions: ED Chest Pain NonCardiac Disposition: Home Minutes spent on discharge:: 28 Patient Condition:: Good Medical Necessity - Tobacco Use Smoking Status: Former smoker Meaningful Use Info Meaningful Use Diagnoses (Choose all that apply): None applicable Code Visit OBSV E&M: 29775 Observation care discharge
--- NOTE | 2018-09-21 08:03 | DS.PCM_ITS ---
Discharge Date and Diagnosis - Problem List Patient Problems: Active and Suspected Problems (Last Updated 09/20/18 @ 15:44 by Jojo Ruiz) Unstable angina (Acute) Stable angina (Acute) Date of Admission: 09/20/18 Date of Discharge: 09/21/18 - Primary Discharge Diagnosis Active and Suspected Problems (Last Updated 09/20/18 @ 15:44 by Jojo Ruiz) Unstable angina (Acute) Stable angina (Acute) - Secondary Discharge Diagnosis Chronic Problems (Last Updated 09/20/18 @ 15:44 by Jojo Ruiz) History of left heart catheterization (Chronic 09/20/18) Stented coronary artery (Chronic 09/20/18) CANDY to mid Diag 1 (2.5 X 12 [employer]) per Dr. Calderon @ [facility] Atherosclerotic heart disease of [place] coronary artery without angina pectoris (Chronic) CANDY to mid Diag 1 (2.5 X 12 [employer]) per Dr. Calderon @ [facility] Benign positional vertigo (Chronic) Hyperlipidemia (Chronic) Hypertension (Chronic) Hospital Course and Treatment Imaging Results: Clinical Impression(s) from Imaging Studies Chest X-Ray 09/20/18 08:46 IMPRESSION: Findings suggest bilateral pleural plaques likely worse on the right side with mild linear scarring at the lung bases. Electronically Signed: Vini Wilburn MD at 9:29 EST Tel [phone], Service support , Chest CTA 09/20/18 09:31 IMPRESSION: Calcified pleural plaques bilaterally. Mild scarring at the lung bases with areas of bronchiectasis. There is no evidence of a pulmonary embolism. Electronically Signed: Vini Wilburn MD at 10:40 EST Tel [phone], Service support , Procedures: Cardiac catheterization Summary of Care Provided: The patient is a 73 year old M presents with exertional angina. Patient had a CANDY to diagonal artery for 75% stenosis. His post-cath hospitalization was uncomplicated. Patient will be discharged home pending approval by cardiology.[] Patient Problems: Active and Suspected Problems (Last Updated 09/20/18 @ 15:44 by Jojo Ruiz) Unstable angina (Acute) Stable angina (Acute) - Physical Exam General: Alert, Cooperative, No apparent distress HEENT: Atraumatic, Normocephalic Oral: Moist Mucosa, No Gingival or Mucosal Lesions/ Ulcerations Lungs: Clear to auscultation, Normal air movement, No rhonchi, No wheeze Cardiovascular: Regular rate, Regular Rhythm, Normal S1, Normal S2, No murmurs Abdomen: Bowel Sounds Present, Soft, Non Tender, Non-Distended, No Hepato-splenomegaly Vital Signs Temp Pulse Resp BP Pulse Ox 36.8 C 66 15 130/69 H 100 09/21/18 04:00 09/21/18 06:00 09/21/18 06:00 09/21/18 06:00 09/21/18 06:00 Oxygen Flow Rate (L/min) 2 Oxygen Delivery Method Room Air Weight: 95.5 kg Body Mass Index (BMI) 29.2 Intake and Output for Last 24 Hours 09/19/18 09/20/18 09/21/18 23:59 23:59 23:59 Intake Total 1620 / 1620 90 / 90 Balance 1620 / 1620 90 / 90 Laboratory Tests Past 24 Hrs 09/20/18 09/20/18 09/20/18 08:55 08:55 08:55 WBC 5.7 RBC 4.77 Hgb 14.4 Hct 43.6 MCV 91.4 MCH 30.2 MCHC 33.0 RDW 13.6 RDW Differential 45.3 H Plt Count 164 MPV 10.7 Immature Gran % (Auto) 0.200 Neut % (Auto) 55.9 Lymph % (Auto) 29.4 [place] % (Auto) 11.7 H Eos % (Auto) 2.6 Baso % (Auto) 0.2 Absolute Neuts (auto) 3.2 Absolute Lymphs (auto) 1.69 Total Counted Not Reportable ESR PT INR APTT 25.1 D-Dimer Quant (PE/DVT) 1.25 H* Sodium 140 Potassium 4.1 Chloride 108 H Carbon Dioxide 24.0 Anion Gap 8 BUN 15 Creatinine 0.96 Estim Creat Clear Calc 75.17 Est GFR (MDRD) Af Amer 99 Est GFR (MDRD) Non-Af 82 BUN/Creatinine Ratio 15.6 Glucose 100 Calcium 8.8 Troponin I < 0.015 Triglycerides Cholesterol LDL Cholesterol VLDL Cholesterol HDL Cholesterol 09/20/18 09/20/18 09/21/18 08:55 09:12 04:20 WBC 5.7 RBC 4.38 L Hgb 13.5 Hct 40.1 MCV 91.6 MCH 30.8 MCHC 33.7 RDW 13.8 RDW Differential 45.9 H Plt Count 143 L MPV 10.8 Immature Gran % (Auto) Neut % (Auto) Lymph % (Auto) [place] % (Auto) Eos % (Auto) Baso % (Auto) Absolute Neuts (auto) Absolute Lymphs (auto) Total Counted ESR 6 PT 13.8 INR 1.1 APTT D-Dimer Quant (PE/DVT) Sodium Potassium Chloride Carbon Dioxide Anion Gap BUN Creatinine Estim Creat Clear Calc Est GFR (MDRD) Af Amer Est GFR (MDRD) Non-Af BUN/Creatinine Ratio Glucose Calcium Troponin I Triglycerides Cholesterol LDL Cholesterol VLDL Cholesterol HDL Cholesterol 09/21/18 04:20 WBC RBC Hgb Hct MCV MCH MCHC RDW RDW Differential Plt Count MPV Immature Gran % (Auto) Neut % (Auto) Lymph % (Auto) [place] % (Auto) Eos % (Auto) Baso % (Auto) Absolute Neuts (auto) Absolute Lymphs (auto) Total Counted ESR PT INR APTT D-Dimer Quant (PE/DVT) Sodium 142 Potassium 3.7 Chloride 111 H Carbon Dioxide 23.0 Anion Gap 8 BUN 12 Creatinine 0.87 Estim Creat Clear Calc 82.95 Est GFR (MDRD) Af Amer 111 Est GFR (MDRD) Non-Af 91 BUN/Creatinine Ratio 13.7 Glucose 80 Calcium 8.0 L Troponin I Triglycerides 111 Cholesterol 187 LDL Cholesterol 139 H VLDL Cholesterol 22 HDL Cholesterol 26 L Discharge Diet: Low fat/ Low Cholesterol Discharge Activity: Return to Normal Activity Call your doctor if you observe: Shortness of breath, Chest pain Home Medications: Medications to take at Discharge aspirin 81 mg tablet,delayed release 81 mg PO DAILY 09/18/18 atorvastatin 20 mg tablet 20 mg PO DAILY #30 tab 09/18/18 nitroglycerin 0.4 mg sublingual tablet 0.4 mg SUBLINGUAL Q5-15M PRN #25 tab 09/18/18 ranitidine 150 mg tablet 150 mg PO QHS 09/18/18 Ticagrelor [Brilinta] 90 mg PO BID #60 tablet 09/21/18 Following Prescrptions Were Given to Patient: Ticagrelor [Brilinta] 90 mg PO BID #60 tablet Primary Care Physician: Keyshawn Doctor,Out of [Primary Care Provider] - Please Follow Up With: Norris Calderon MD When: 2 weeks Patient Instructions: ED Chest Pain NonCardiac Disposition: Home Minutes spent on discharge:: 28 Patient Condition:: Good Medical Necessity - Tobacco Use Smoking Status: Former smoker Meaningful Use Info Meaningful Use Diagnoses (Choose all that apply): None applicable Code Visit OBSV E&M: 47102 Observation care discharge
[2018-09-21] MEDS: Aspirin E.C. 81 MG Tablet PO (08:19)
[2018-09-21] MEDS: TICAGRELOR 90 MG TABLET PO (08:19)
--- NOTE | 2018-09-21 08:45 | CASEMGMT ---
RAUL DEMARCO ASSESSMENT Face to Face with patient for initial transition planning/care coordination assessment. RAUL DEMARCO introduced self and role at [facility]. Pt voices understanding and consents to assessment at this time. Pt sitting up in bed in no distress at this time. Pt is A/O at this time and answers all questions appropriately. Care providers, pharmacy, and demographics verified/updated at this time. PCP: Amy Specialists: [facility] Pharmacy: [facility] Insurance: [facility] Pres[facility] Benefit: [employer] [facility], [place]. Living Will/HPOA: Has both LW and HCPOA, who is his Jessica. LNOK: Living Arrangements: Lives with in one-story home. 2 steps to enter. Independent @ home. Transportation: Pt states drives self and states no transportation concerns at this time. DME/HHC: Denies using any DME and denies needs. No history of HHC Pt wishes to return home and states has no concerns with going home at time of discharge. Pt voices no further concerns/needs at this time. Advised pt to ask for CM if any further questions/concerns/needs arise. Voices understanding. Plan: Home with family support and discharge plans in place. Anahy DENNIS RN, CM
--- NOTE | 2018-09-21 09:02 | CRPHASE1 ---
Patient Data/Charges Start Phase II:: Following cardiology office visit Risk Factors/Lifestyle Smoking Status: Former smoker Hx Hypertension: Yes Hx Diabetes Mellitus Type 1: No Hx Diabetes Mellitus Type 2: No Hx Metabolic Disorders: No Hx Dyslipidemia: Yes Hx Obesity: Yes Height: 1.8 m Weight:: 95.254 kg BMI: 29.2 Stress: Home/Family Substance Abuse: No Family History: Family History (Last Reviewed 09/20/18 @ 14:32 by Ren Mayen DO) Father CAD (coronary artery disease) Mother CAD (coronary artery disease) Colon cancer Brother Lung cancer Sister Alzheimer's disease Brother Lymphoma Past Cardiac Illness: Coronary Artery Disease Laboratory Values: Cardiac Rehab Phase I Labs Triglycerides 111 mg/dL (-199) 09/21/18 04:20 Cholesterol 187 mg/dL (200) 09/21/18 04:20 LDL Cholesterol 139 mg/dL (0-130) H 09/21/18 04:20 HDL Cholesterol 26 mg/dL (40-) L 09/21/18 04:20 Phase I Education Given On:: [facility], Nutrition, Antiplatelet medication Issues Affecting Care:: None Knowledge of Condition:: Yes Learning Preferences: Verbal, Written - at bedside
--- NOTE | 2018-09-21 09:02 | PCM.PN.CARD ---
Subjectve: Patient doing very well, and in fact feels much better already. No 24-hour events. No chest pain. Telemetry negative. EKG shows normal sinus rhythm, no acute changes. Right groin is clean/dry/intact. Hemoglobin and creatinine are within nominal limits. Objective: Vital Signs Temp Pulse Resp BP Pulse Ox 97.8 F 61 8 L 107/68 98 09/21/18 08:00 09/21/18 08:00 09/21/18 08:00 09/21/18 08:00 09/21/18 08:00 Oxygen Flow Rate (L/min) 2 Oxygen Delivery Method Room Air Weight: 210 lb 8.663 oz Body Mass Index (BMI) 29.2 Intake and Output for Last 24 Hours 09/19/18 09/20/18 09/21/18 23:59 23:59 23:59 Intake Total 1620 / 1620 90 / 90 Balance 1620 / 1620 90 / 90 General: Awake, Alert, Oriented x 3 HEENT: PERRL, EOMI, Sclera Non Icteric Neck: Supple, Good ROM, No Lymph Node Enlargement Lungs: Clear to auscultation Cardiovascular: Regular Rhythm, Normal S1, Normal S2, No Murmurs, No Rubs, No Gallops Vascular: No Carotid Bruits, Normal Femoral Pulses, Normal Radial Pulses, Normal Dorsalis Pedal Pulse, Normal Posterior Tibial Pulses Abdomen: Bowel Sounds Present, Soft, Non Tender, No HSM, No Organomegaly Extremities: No Cyanosis, No Clubbing, No edema Neurological: No Focal Motor or Sensory Deficit 09/20/18 08:55: WBC 5.7, RBC 4.77, Hgb 14.4, Hct 43.6, MCV 91.4, MCH 30.2, MCHC 33.0, RDW 13.6, RDW Differential 45.3 H, Plt Count 164, MPV 10.7, Immature Gran % (Auto) 0.200, Neut % (Auto) 55.9, Lymph % (Auto) 29.4, [place] % (Auto) 11.7 H, Eos % (Auto) 2.6, Baso % (Auto) 0.2, Absolute Neuts (auto) 3.2, Total Counted Not Reportable 09/20/18 08:55: APTT 25.1, D-Dimer Quant (PE/DVT) 1.25 H* 09/20/18 08:55: Sodium 140, Potassium 4.1, Chloride 108 H, Carbon Dioxide 24.0, Anion Gap 8, BUN 15, Creatinine 0.96, Est GFR (MDRD) Af Amer 99, Est GFR (MDRD) Non-Af 82, BUN/Creatinine Ratio 15.6, Glucose 100, Calcium 8.8, Troponin I < 0.015 09/20/18 09:12: PT 13.8, INR 1.1 09/21/18 04:20: WBC 5.7, RBC 4.38 L, Hgb 13.5, Hct 40.1, MCV 91.6, MCH 30.8, MCHC 33.7, RDW 13.8, RDW Differential 45.9 H, Plt Count 143 L, MPV 10.8 09/21/18 04:20: Sodium 142, Potassium 3.7, Chloride 111 H, Carbon Dioxide 23.0, Anion Gap 8, BUN 12, Creatinine 0.87, Est GFR (MDRD) Af Amer 111, Est GFR (MDRD) Non-Af 91, BUN/Creatinine Ratio 13.7, Glucose 80, Calcium 8.0 L, Triglycerides 111, Cholesterol 187, LDL Cholesterol 139 H, VLDL Cholesterol 22, HDL Cholesterol 26 L Rhythm: EKG: ECHO: Stress Test: Cardiac Cath: PCI: CT Surgery: Holter monitor: EPS: PPM: CXR: Chest CT Scan: Medical Necessity - Tobacco Use Smoking Status: Former smoker Assessment/Plan 1. Coronary artery disease: The patient presented with new onset anginal symptoms, as well as tachypnea and shortness of breath. Preliminary evaluation showed negative CTA for pulmonary emboli, though d-dimer was mildly elevated. Sed rate was normal. Patient was brought to the [facility] and found to have a significant lesion in his mid diagonal branch which underwent successful angioplasty and drug-eluting stenting. Patient will continue baby aspirin for life, and Brilinta at least one years time. If the patient developed side effects to Brilinta or has cost issues, we can convert him to Plavix after reloading. His right groin is clean dry and intact and underwent minx closure successfully. Patient may be discharged home and follow-up with Dr. Calderon going forward. He will be enrolled in cardiac rehab in 2 weeks time. Given the patient's mildly elevated d-dimer, if he continues to have chest pain I would consider a VQ scan to determine if he has subclinical pulmonary embolism that was not detected by CTA. Patient is completely asymptomatic at this time. 2. Hyperlipidemia: His LDL was 139. He will continue Lipitor, and repeat lipid profile in 6 weeks time. We will titrate up his Lipitor for an LDL less than 70. 3. Patient may be discharged home. Thank you very much for the opportunity to participate in the cardiac care of your patient. Code Visit Inpatient E&M: 57368 Subs Hosp L2
--- NOTE | 2018-09-21 09:22 | CRPH1.INSTRU ---
General Education CAD and cardiac anatomy and function:: Patient communicates acknowledgment, Family communicates acknowledgment Explanation of diagnoses and procedures:: Patient communicates acknowledgment, Family communicates acknowledgment Sign/Symptoms of [place]:: Patient communicates acknowledgment, Family communicates acknowledgment Antiplatelet therapy: Patient communicates acknowledgment, Family communicates acknowledgment Proper use of NTG-SL: Patient communicates acknowledgment, Family communicates acknowledgment Emergency procedures and activation of EMS: Patient communicates acknowledgment, Family communicates acknowledgment Compliance of all prescribed medications: Patient communicates acknowledgment, Family communicates acknowledgment - at bedside Smoking Recommendations Include:: Previous smoker; encourage continued cessation Nicotine/Smoking Response Code:: Patient communicates acknowledgment Dyslipidemia Patient Dyslipidemia Risk Factors Are:: Total Cholesterol, Triglycerides, HDL, LDL Recommendations Include:: Lipid profile not available, Reviewed NCEP/ATP guidelines, Therapeutic Lifestyle Change dietary guidelines Dyslipidemia Response Code:: Patient communicates acknowledgment Overweight/Obesity Patient Overweight/Obesity Risk Factors Are:: Overweight = 26-29 Recommendations Include:: Weight loss of 5-10%, Reduced calorie diet, Exercise 5-7 times/week Overweight/Obesity:: Patient communicates acknowledgment, Family communicates acknowledgment Hypertension Recommendations Include:: Maintain BP <130/85, DASH dietary guidelines, Decrease/maintain normal body weight, Moderation of ETOH Hypertension:: Patient communicates acknowledgment Heart Disease Patient Heart Disease Risk Factors Are:: Previous cardiac event Heart Disease Response Code:: Patient communicates acknowledgment Diabetes Patient Diabetes Risk Factors Are:: No documented hx of diabetes Metabolic Syndrome Patient Metabolic Syndrome Risk Factors Are [3 of 5]:: Waist circumference > 35 [female] or 40 [male], High triglyceride >150, Hypertension, Low HDL <40 [male] or < 50 [female] Recommendations Include:: Reinforce compliance to risk factor modifications, Encouraged follow-up with Primary Care Physician Metabolic Syndrome Response Code:: Patient communicates acknowledgment Sedentary Patient Sedentary Risk Factors Are:: Lack of regular exercise Recommendations Include:: Aerobic exercise 5-7 times/week for 20-30 minutes continuously, Benefits of regular exercise, Discussed home walking program, Monitored Outpatient Cardiac Rehab Sedentary Response Code:: Patient communicates acknowledgment Stress Recommendations Include:: Identification of stressors, and assessment of coping skills, Stress management techniques Stress Response Code:: Patient communicates acknowledgment
--- NOTE | 2018-09-21 10:00 | EKG12_ITS ---
Test Reason : AM EKG Blood Pressure : / mmHG Vent. Rate : 051 BPM Atrial Rate : 051 BPM P-R Int : 152 ms QRS Dur : 080 ms QT Int : 428 ms P-R-T Axes : 045 038 009 degrees QTc Int : 394 ms Sinus bradycardia with Premature atrial complexes Otherwise normal ECG When compared with ECG of 20-SEP-2018 12:49, MANUAL COMPARISON REQUIRED, DATA IS UNCONFIRMED Confirmed by SATHISH POST, SHAHLA ([id number]), restaurant expeditor CONSTANTINE SIMPSON ([id number]) on 09/24/2018 7:55:36 AM Referred By: RADHA Confirmed By:SHAHLA BOWER MD
--- NOTE | 2018-09-21 10:25 | CASEMGMT ---
RAUL DEMARCO NOTE: Call placed to [facility] pharmacy in [place] for smith check on Brilinta, using the Brilinta savings card. Pt will get 1st 30 days free and then [id number] cost will be $300/month. Pt and made aware of this. They stated this amt is not affordable. Pt given the Brilinta savings card and instructed to present this to his pharmacist when he picks up the Brilinta. Per Dr Calderon Progress note, plan would be to change to Plavix if has cost issues. Pt made aware of this and instructed him to talk with Dr Calderon about this cost and about options of changing to an alternative medication. Pt states he is able to get some prescriptions [facility] by the [facility]. Discussed the possible option of talking with his [facility] physician and seeing if he can get the Brilinta covered under [facility] benefits. Pt and voice understanding. 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 and pt state they have no other questions or concerns at this time. Anahy DENNIS RN, CM
--- NOTE | 2018-09-21 10:25 | CASEMGMT ---
RAUL DEMARCO NOTE: Call placed to Beatris @ [facility] and she was made aware pt is discharging today. D/C summary and instructions faxed to her @ [phone]. She stated she did not receive the H/P and info faxed yesterday. These were refaxed at this time as well. Call received back from her and she confirmed she did receive the information. Anahy DENNIS RN CM
--- NOTE | 2018-09-21 10:29 | CASEMGMT ---
SW spoke w/pt in regard to LW/POA, pt states has them, will bring the forms in next time he is here. NIMO Fairchild, [employer] [employer]
[2018-09-21 16:35] LABS: ACT Activated Clotting Time 202 sec (74-137)
--- OUTSIDE RECORDS SUMMARY | 2018-11-06 02:35 | XMS RPT_ITS ---
:1945 Author Organization OHIP Support Name Relationship Address Phone KEMI FREY Unavailable Unavailable + KEVIN FREY Unavailable [address] + [place] [address] R Unavailable Unavailable Unavailable TK, KEMI Unavailable . + [place] [address] TK, KEVIN Unavailable [address] + [place] [address] R Unavailable Unavailable Unavailable TK, KEMI Unavailable Unavailable + TK, KEVIN Unavailable [address] + [place] [address] R Unavailable Unavailable Unavailable TK, KEMI Unavailable Unavailable + R Unavailable Unavailable Unavailable TK, KEMI Unavailable Unavailable + R Unavailable Unavailable Unavailable TK, KEMI Unavailable Unavailable + R Unavailable Unavailable Unavailable TK, KEMI Unavailable Unavailable + TK KEVIN Unavailable [address] + [place] [address] R Unavailable Unavailable Unavailable TK, KEMI Unavailable . + [place] [address] TK KEVNI Unavailable [address] + [place] [address] R Unavailable Unavailable Unavailable TK, KEMI Unavailable . + [place] [address] TK, KEVIN Unavailable [address] + [place] [address] R Unavailable Unavailable Unavailable . Unavailable Unavailable + ., [place] . Care Team Providers Name Role Phone Dwaine Gao Attending Unavailable Vore, Art W Primary Care Unavailable Newbill, Akin Giovanny Admitting Unavailable Newbill, Akin Giovanny Attending Unavailable Vore, Art W Primary Care Unavailable Oberhauser, Marily L Attending Unavailable Oberhauser, Marily L Admitting Unavailable Oberhauser, Marily L Primary Care Unavailable Oberhauser, Marily L Admitting Unavailable Oberhauser, Marily L Attending Unavailable Oberhauser, Marily L Primary Care Unavailable Newbill, Akin Giovanny Admitting Unavailable Newbill, Akin Giovanny Attending Unavailable Oberhauser, Marily L Primary Care Unavailable Norris Calderon Attending Unavailable FACUNDO JC Primary Care Unavailable Norris Calderon Attending Unavailable Norris Calderon Admitting Unavailable Norris Calderon Consulting Unavailable Norris Calderon Admitting Unavailable Ren Mayen Attending Unavailable FACUNDO JC Primary Care Unavailable Norris Calderon Consulting Unavailable Norris Calderon Admitting Unavailable Ren Mayen Attending Unavailable FACUNDO JC Primary Care Unavailable Norris Calderon Consulting Unavailable Norris Calderon Admitting Unavailable Norris Calderon Attending Unavailable FACUNDO JC Primary Care Unavailable Norris Calderon Consulting Unavailable Norris Calderon Attending Unavailable Norris aClderon Referring Unavailable FACUNDO JC Primary Care Unavailable Norris Calderon Attending Unavailable DOCTOR, OUT OF TOWN Referring Unavailable Norris Calderon Attending Unavailable Radha, Norris Referring Unavailable CalderonNorris Attending Unavailable MAIRA VASQUEZ Referring Unavailable Norris Calderon Attending Unavailable FACUNDO JC Primary Care Unavailable PROBLEMS PROBLEMS DATE TYPE CONDITION / CODE ATTENDING STATUS SOURCE 10/16/2018 Unknown E78.5 - Norris Calderon Active [facility] Hyperlipidemia, Community unspecified / Hospital E78.5(ICD-10) Repository 10/16/2018 Unknown I25.10 - Norris Calderon Active [facility] Atherosclerotic heart Community disease of [facility] coronary artery Repository without angina pectoris / I25.10(ICD-10) 10/16/2018 Unknown Z98.890 - Other Norris Calderon Active [facility] specified Community postprocedural [facility] Hospital / Z98.890(ICD-10) Repository 09/21/2018 Unknown Z95.5 - Presence of Norris Calderon Active [facility] coronary angioplasty Community implant and graft / Hospital Z95.5(ICD-10) Repository 09/18/2018 Unknown R06.02 - Shortness of Norris Calderon Active [facility] breath / Community R06.02(ICD-10) Hospital Repository 09/18/2018 Unknown R07.9 - Chest pain, Norris Calderon Active [facility] unspecified / Community R07.9(ICD-10) Hospital Repository PROCEDURES PROCEDURES No Procedure Records FoundRESULTS RESULTS CARDIOLOGY VISIT Observed: 10/19/2018 Status: F Source: [place] REPORT 2:57 PM COUNTS INCLUDE 234 BEDS AT THE [facility] HOSPITAL REPOSITORY [facility] [address] [place] [address] OFFICE VISIT Date of Service: 09/18/18 MR#: [id number] Acct: [id number] Name: MEHRAN FREY Rep #: [id number] : 1945 Provider: Norris Calderon MD Age/Sex: 73/M Location: [facility] Status: Signed HPI HPI Chief Complaint: Chest pain Details: MEHRAN FREY, is a 73 M who presents to the office today for evaluation of new onset chest pain. Patient is a nondiabetic, nonhypertensive, no previous known coronary disease. He is a former smoker of 2-3 packs/day for approximately 15 years time, quit in 1980. He is a former [place] , and gets [facility] the [facility]. Patient was stationed in the [employer] [place] [id number]. He did not see any direct action and had no exposures to agent orange. Approximately 3 weeks ago, the patient developed exertional chest pressure with associated diaphoresis, shortness of breath, which described as a heaviness in the middle of his chest. This occurred while he was jacking up heavy machinery in his garage which was a bulldozer. Patient's symptoms alleviated after approximately 15 minutes. Patient did not seek medical attention until he conferred with his daughter who works in preadmission testing here at [facility], and then went to the [facility] in [facility]. Patient underwent a 2D echo with Doppler on 09/18/18 which showed normal LV size and function with an EF of 65% and mild concentric LVH. Unable to quantitate RVSP. In addition he underwent a non-imaging treadmill EKG on 09/18/18 the results of which are pending. He did not have imaging. His lipids as of 09/03/18 showed an LDL of 157 and HDL of 32. Patient was placed on baby aspirin. On further history he apparently has exposure to wood dust particles but has never been evaluated with pulmonary function test to his knowledge. His EKG today in the office showed normal sinus rhythm, normal axis, normal intervals, PAC, no evidence of previous myocardial infarction. In our office today's blood pressure is 100/50, pulse is 78 and regular. Pulse ox is 95% on room air. Lungs are clear bilaterally, regular rate and rhythm, normal S1/S2, no murmurs are detected. He has no edema. Lipids are as above. EKG is as above Intake Intake Visit Reasons: CP, SOB, HTN (FAMILY REF) Allergies ticagrelor [From Brilinta] Adverse Reaction (Intermediate, Verified 10/16/18 15:16) Shortness of breath Medications aspirin 81 mg tablet,delayed release 81 mg PO DAILY 09/18/18 [History Confirmed 10/11/18] nitroglycerin 0.4 mg sublingual tablet 0.4 mg SUBLINGUAL Q5- 15M PRN #25 tab 09/18/18 [Rx Confirmed 10/11/18] atorvastatin 20 mg tablet 20 mg PO DAILY #30 tab 09/21/18 [Rx Confirmed 10/11/18] ranitidine 150 mg tablet 150 mg PO QHS #30 tab 09/21/18 [Rx Confirmed 10/11/18] clopidogrel 75 mg tablet 75 mg PO .COMPLEX #34 tab 10/16/18 [Rx Confirmed 10/16/18] PFSH Medical History 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) Benign positional vertigo (Chronic) Hyperlipidemia (Chronic) Hypertension (Chronic) CAD (coronary artery disease) (Acute) Surgical History History of left heart catheterization (Chronic 09/20/18) Stented coronary artery (Chronic 09/20/18) Family History Father CAD (coronary artery disease) Mother CAD (coronary artery disease) Colon cancer Brother Lung cancer Sister Alzheimer's disease Brother Lymphoma Social History Smoking Status: Former smoker Cardiology Exam Const Appearance: cooperative, healthy appearing and no acute distress Nutritional Appearance: well nourished Orientation: alert, oriented x3 and oriented to person Head Head: normal to inspection, atraumatic and normocephalic Nose: external nose normal Face and Sinus: face symmetric Mouth: oral mucosae normal Eyes General: appearance normal, both eyes and all related structures Eyelids: eyelids normal Conjunctivae: conjunctivae normal Pupils: PERRL and normal by confrontation EOM: EOM intact bilaterally Neck Neck: normal visual inspection and full ROM Carotids: normal carotid upstroke Chest Chest inspection: normal inspection of the chest Auscultation: Bilateral: Clear to Auscultation Cardio Palpation: normal PMI Rate: regular rate Rhythm: regular rhythm Heart sounds: S1 normal and S2 normal GI GI: normal to inspection, no hepatosplenomegaly and bowel sounds present Neuro General: alert, oriented x3, awake, CN's II-XI intact bilaterally and moves all extremities Skin Skin: no rashes or lesions noted Extremities Pulses: Normal: Right Femoral Pulse, Left Femoral Pulse, Right Dorsalis Pedis Pulse, Left Dorsalis Pedis Pulse, Right Posterior Tibial Pulse, Left Posterior Tibial Pulse, Right Radial Pulse, Left Radial Pulse Lower Extremity Edema: None: Bilateral Psych Psychological: normal affect Assessment AND Plan 1. Chest pain R07.9 Plan 1. Chest pain: The patient has new onset exertional substernal chest pressure, which did not repeat use itself during his treadmill exercise test at the [facility] on 09/18/18. Patient apparently went the requisite amount of time and was stopped by the [facility] attendant as he had attained target heart rate. The patient did not have associated imaging with his stress test. The results of the stress test are now pending. Patient also has normal LV function by 2D echo with Doppler with an EF of 65%. His EKG shows no evidence of acute changes or previous myocardial infarction. Patient has risk factors for coronary artery disease prickly his father who of myocardial infarction at age 71. I advised the patient that should his chest pain return regardless of the outcome of his stress test that he should return to [facility] ER and be admitted for further evaluation and possible catheterization. If his stress test is found to be abnormal he will most likely require catheterization either here at [facility] or at the [facility]'s recommendation. I have answered all the patient's questions, and mapped out a strategy. I advised the patient to postpone his trip to [place] which is supposed to take place in 1 week's time for a vacation of 3 weeks total until we can get this sorted out. I do not believe he requires beta-kana therapy as his blood pressure is 100/50 but would recommend baby aspirin. Also recommended prescription of sublingual nitroglycerin for bail out for chest pain should he need this.. Orders Orders: 2. Hyperlipidemia E78.5 Plan 2. Hyperlipidemia: Given the patient's elevated LDL and risk factors I would recommend primary prophylaxis with Lipitor 20 mill grams p.o. nightly and repeat lipid profile in 6 weeks time. His LDL should at least less than 130. 3. Return office in 6 months. This note was generated using a voice recognition system and there may be incorrect words, spelling or punctuation that were not noted when reviewing the office note prior to saving. Orders Orders: Plan Detail Other Orders Orders: Other Medications New: Discontinued: Follow Up +6M (Radha) Coding Level of Care Code Off vis,new,level 4 Diagnoses Chest pain R07.9 Hyperlipidemia E78.5 Coding Level of Care Code Off vis,new,level 4 Diagnoses Chest pain R07.9 Hyperlipidemia E78.5 Supplemental Info Supplemental Information Labs LDL Cholesterol 139 mg/dL (0-130) H 09/21/18 HDL Cholesterol 26 mg/dL (40-) L 09/21/18 Triglycerides 111 mg/dL (-199) 09/21/18 VLDL Cholesterol 22 mg/dL (5-40) 09/21/18 Diagnostics Electrocardiogram 09/21/18 Echocardiogram 09/20/18 Chest X-Ray 09/20/18 10/19/18 8897 <Electronically signed by Norris Calderon MD> Date Norris Calderon MD Cosign Signature: Date (if applicable) CC: CARDIOLOGY VISIT Observed: 10/16/2018 Status: F Source: [facility] REPORT 3:32 PM [facility] REPOSITORY [facility] [address] [place], [place] [address]. [address] [place] [address] OFFICE VISIT Date of Service: 10/16/18 MR#: [id number] Acct: [id number] Name: MEHRAN FREY Rep #: [id number] : 1945 Provider: Norris Calderon MD Age/Sex: 73/M Location: [facility] Status: Signed HPI HPI Chief Complaint: Dyspnea Details: MEHRAN FREY, is a 73 M with a history of hypertension, hypercholesterolemia, who presents to the office today for follow-up for angiogram and angioplasty of his diagonal branch on 09/20/18. Patient developed substernal chest pain underwent a stress test at the [facility] in [place] on 09/17/18, 3 days prior to his admission to [facility]. His stress test was a modified Devang and reportedly had no chest pain during his exercise. There appeared to be no imaging component to it. he continued to have chest pain and presented to [facility] on 09/20/18. He underwent left heart catheterization which showed nonobstructive coronary artery disease except for a critical lesion in his mid diagonal #1. He received a 2.5 X12 Promus Synergy stent without complications and subsequently sent home. Patient is now here in follow up. Since his last visit his chest pain has resolved and he feels great. He denies any chest pain, angina, but does complain of some shortness of breath while on Brilinta. Patient quit smoking 20 years ago after many pack year smoking history. He has never had pulmonary function test. In addition he complains of severe snoring, waking himself up with his own snoring, while he is laying in a recliner chair, but does not appear to have symptoms when he is laying down flat. He is awaiting a trip to [place] for vacation In our office today's blood pressure is 110/54, pulse is 56 and regular. His physical exam is as below. His lipids as of 09/21/18 show an LDL of 139 and an HDL of 26. He has yet to start cardiac rehab but is scheduled to do so in November 2018. 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 Required: No Accompanied by: Is patient in pain?: No Allergies ticagrelor [From Brilinta] Adverse Reaction (Intermediate, Verified 10/16/18 15:16) Shortness of breath Medications aspirin 81 mg tablet,delayed release 81 mg PO DAILY 09/18/18 [History Confirmed 10/11/18] nitroglycerin 0.4 mg sublingual tablet 0.4 mg SUBLINGUAL Q5- 15M PRN #25 tab 09/18/18 [Rx Confirmed 10/11/18] atorvastatin 20 mg tablet 20 mg PO DAILY #30 tab 09/21/18 [Rx Confirmed 10/11/18] ranitidine 150 mg tablet 150 mg PO QHS #30 tab 09/21/18 [Rx Confirmed 10/11/18] clopidogrel 75 mg tablet 75 mg PO .COMPLEX #34 tab 10/16/18 [Rx Confirmed 10/16/18] [facility] Medical History 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 Nov 26 Cardiac Rehab.); negative for fatigue, weakness, body ache, fever(s), headache(s), chills, frequent falls, night sweats, daytime sleepiness, difficulty sleeping, excessive sweating, weight gain, weight loss, increased appetite, poor appetite or anorexia Eyes Eyes: Negative for blind spots, loss of peripheral vision, transient loss of vision, blurry vision, change in vision, double vision, floaters, tunnel vision or other ENT ENT: Negative for headache(s), dizziness, hearing loss, tinnitus, Nosebleed/epistaxis, balance problems, post nasal drip, lip swelling, tongue swelling, bleeding gums, hoarseness, neck pain, dry mouth or other Cardio Chest Pain: No Palpitations: No Edema: None Muscle aches with walking: None Resp Respiratory: Positive for SOB with activity (Is on Brilinta.); negative for SOB at rest, SOB orthopnea\SOB lying down, Coughing up blood/hemoptysis, chest congestion, pain on inspiration, snoring, stridor, wheezing, crackles, paroxysmal nocturnal dyspnea or other GI GI: Negative nausea, vomiting, heartburn, constipation, belching, bloating, cramping, vomiting blood/hematemesis, bright, red blood in stools, black,tarry stools, loose stools, Difficulty Swallowing or other : Negative for hematuria, frequent nighttime urination/ nocturia, erectile dysfunction or abnormal vaginal bleeding Musc Musc: Negative for balance problems, muscle aches/ myalgia, muscle weakness or joint pain Skin Skin: Negative redness, non-healing lesions, rash, unusual bruising, skin ulcer, wounds, jaundice or other Neuro Neuro: Negative for weakness, headache(s), frequent falls, blurry vision, double vision, dizziness, lightheadedness, near syncope, syncope, orthostatic symptoms, confusion, memory loss, restless legs, vertigo, seizures, lack of coordination or other Seth Hematologic/Lymphatic: Negative for easy bleeding, easy bruising, enlarged lymph nodes or other Endo Endo: Negative for fatigue, excessive sweating, cold intolerance, heat intolerance, flushing, increased thirst/drinking, increased hunger, hair loss, hair growth or other Psych Psych: Negative for anxiety, depression, thoughts of harming anyone, thoughts of harming yourself, visual hallucinations, panic attacks or audible hallucinations Allergy Allergy/Immunology: Negative for lip swelling, Negative for tongue swelling, Negative for rash, Negative for throat swelling, Negative for hives Cardiology Exam Const Appearance: cooperative, healthy appearing and no acute distress Nutritional Appearance: well nourished Orientation: alert, oriented x3 and oriented to person Head Head: normal to inspection, atraumatic and normocephalic Nose: external nose normal Face and Sinus: face symmetric Mouth: oral mucosae normal Eyes General: appearance normal, both eyes and all related structures Eyelids: eyelids normal Conjunctivae: conjunctivae normal Pupils: PERRL and normal by confrontation EOM: EOM intact bilaterally Neck Neck: normal visual inspection and full ROM Carotids: normal carotid upstroke Chest Chest inspection: normal inspection of the chest Auscultation: Bilateral: Clear to Auscultation Cardio Palpation: normal PMI Rate: regular rate Rhythm: regular rhythm Heart sounds: S1 normal and S2 normal GI GI: normal to inspection, no hepatosplenomegaly and bowel sounds present Neuro General: alert, oriented x3, awake, CN's II-XI intact bilaterally and moves all extremities Skin Skin: no rashes or lesions noted Extremities Pulses: Normal: Right Femoral Pulse, Left Femoral Pulse, Right Dorsalis Pedis Pulse, Left Dorsalis Pedis Pulse, Right Posterior Tibial Pulse, Left Posterior Tibial Pulse, Right Radial Pulse, Left Radial Pulse Lower Extremity Edema: None: Bilateral Psych Psychological: normal affect Assessment AND Plan 1. Atherosclerotic heart disease of sioux coronary artery without angina pectoris I25.10 CANDY to mid Diag 1 (2.5 X 12 Promus Synergy) per Dr. Calderon @ [facility] Plan 1. Coronary artery disease: Patient's chest pain symptoms have for the most part completely resolved after angioplasty and stenting of his diagonal branch. No additional coronary arteries require intervention at this time. I recommended that he continue his current medical regimen of baby aspirin, and switching him from Brilinta to Plavix after loading with 300 mg x1 and 75 mg a day. His shortness of breath may be related to his Brilinta as it was present prior to his PCI but is gotten worse since starting Brilinta. In addition he will start cardiac rehab in November 2018. I believe it is reasonable for him to go to [place] for his trip. Orders Orders: 2. Shortness of breath R06.02 Plan 2. Shortness of breath: The patient has had shortness of breath for some time recently exacerbated with Brilinta. As above we will change him from Brilinta to Plavix. In addition we will obtain pulmonary function test given his years of smoking to determine if he has undiagnosed COPD. In addition I recommended he undergo a sleep study given his signs and symptoms of obstructive sleep apnea. 3. Hyperlipidemia E78.5 Plan 3. Hyperlipidemia: We will repeat his lipid profile. His LDL should be less than 70. Continue Lipitor. 4. Return office in 6 months. This note was generated using a voice recognition system and there may be incorrect words, spelling or punctuation that were not noted when reviewing the office note prior to saving. Orders Orders: Plan Detail Other Orders Orders: Other Medications New: clopidogrel (Plavix) 75 mg PO take 4 tablets (300mg) tonight, then 1 tablet by mouth daily . 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 I25.10 Shortness of breath R06.02 Hyperlipidemia E78.5 Supplemental Info Supplemental Information Labs LDL Cholesterol 139 mg/dL (0-130) H 09/21/18 HDL Cholesterol 26 mg/dL (40-) L 09/21/18 Triglycerides 111 mg/dL (-199) 09/21/18 VLDL Cholesterol 22 mg/dL (5-40) 09/21/18 Diagnostics Electrocardiogram 09/21/18 Echocardiogram 09/20/18 Chest X-Ray 09/20/18 10/16/18 1532 <Electronically signed by Norris Calderon MD> Date Norris Calderon MD Cosigner Signature: Date (if applicable) CC: CR - HISTORY AND Observed: 10/12/2018 Status: F Source: [facility] PHYSICAL 12:15 PM [facility] REPOSITORY [facility] Cardiac Rehab [address] [place] [address] CR - History AND Physical MR#: [id number] Acct: [id number] Name: MEHRAN FREY Rep #: [id number] : 1945 73 From: Aelxandre Casper RN PCP: OUT OF TOWN DOCTOR DOS: 10/11/18 CR - History AND Physical - General Arrival date:: 10/11/18 Arrival time:: 08:43 Date of Referral:: 10/11/18 Date of CR Evaluation:: 10/11/18 Referring Physician: Dr. Belen Calderon Primary Diagnosis: PCI - History of Present Cardiac Event Onset Date: Enter Onset Date of cardiac illnesses in Comment field below Current stable Angina Pectoris:: No Acute Myocardial Infarction within 12 months:: No Coronary Artery Bypass Graft:: No Heart valve replacement or repair:: No PTCA or coronary stenting:: Yes - 09/20/18 Heart or Heart-Lung Transplant:: No Heart Failure EF <35%:: No Type of Symptoms:: Chest pain, SOB, dizziness Interventions with present event:: PCI Were there any complications?: no - Medications Home Medications: Ambulatory Orders Medication Instructions Recorded aspirin 81 mg tablet,delayed 81 mg PO DAILY 09/18/18 release nitroglycerin 0.4 mg sublingual 0.4 mg SUBLINGUAL Q5-15M PRN #25 09/18/18 - Allergies Allergies/Adverse Reactions: Allergies No Known Allergies Allergy (Verified 09/20/18 08:47) - Sleep Disorder Evaluation Hx of Sleep Apnea: No Do you snore loudly (louder than talking or can be heard through closed doors)?: Yes Do you often feel tired/ fatigued/ sleepy during daytime?: No Has anyone observed you stop breathing during sleep?: Yes History of Hypertension (for STOP score): No STOP Results: Positive Advanced Directives - Advanced Directives Power of Construction Job Titles: Yes Living Will: Yes Advance Directives Information Provided: Yes Advance Directives on File: No DNR Order?:: No - MOLST See MOLST form: No Past Medical History - Past Medical Illness Medical History: Past Medical History (Last Updated 09/20/18 @ 15:44 by Jojo Ruiz) 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 Calderon @ [facility] Benign positional vertigo (Chronic) H81.10 Hyperlipidemia (Chronic) E78.5 Hypertension (Chronic) I10 CAD (coronary artery disease) I25.10 - Past Surgical History Surgical History: Past Surgical History (Last Updated 09/20/18 @ 15:44 by Jojo Ruiz) History of left heart catheterization (Chronic) Onset Date: 09/20/18 Z98.890 Stented coronary artery (Chronic) Onset Date: 09/20/18 Z95.5 CANDY to mid Diag 1 (2.5 X 12 Promus Synergy) per Dr. Calderon @ [facility] Surgical History: herniorrhaphy, - - both shoulders. both carpal tunnels. Back surgery. - Family History Summary Family History: Family History (Last Reviewed 09/20/18 @ 14:32 by Ren Maeyn DO) Father CAD (coronary artery disease) Mother CAD (coronary artery disease) Colon cancer Brother Lung cancer Sister Alzheimer's disease Brother Lymphoma Social History - Smoking History Smoking Status: Former smoker Years Smokin Packs Smoked per Day: 2 Hx Smoking Cessation Date: quit 25 years ago Hx Tobacco Use: No Hx Smoking Exposure: No - Alcohol Use Alcohol Usage: No - Substance Abuse Hx Substance Use: No - Occupation Occupation (List type of work in comments):: Retired - Hobbies, Recreation, Social Activities Hobbies: Woodworking, Other - restoring old cars and equipment Recreational Activities: I am able to engage in all my recreational activities Social Environment - Status Marital Status: - Current Living Arrangements Living Environment:: Spouse - Children How many children do you have?: 2 Do any of your children live nearby?: Yes - Safety Do you feel safe in your surroundings?: Yes - Assistance Do you need any assistance at home?: no Review of Systems - Review of Systems Hints: Right click = Denies (Slash). Left click = Reports (Collins) Review of Present Symptoms: Reports: Shortness of Breath with Exertion, Angina - some, but none like that brought him in, Dizziness/Lightheadedness - occas, but does have benign positional vertigo, Fatigue - some since surg, Appetite - Normal, Appetite - Special Diet - cardiac diet, Sleep - Normal. Denies: Shortness of Breath at Rest, PVD, Operative Discomfort, Wound Healing, Heart Arrhythmia/Irregularities, Sexual Changes - Pain Is Patient Pain Free?: Yes Risk Factor Assessment - Chief Complaint Chief Complaint: cardiac rehab post stent - Pulse Pulse Rate: 71 Pulse Rhythm: Irregular - slightly irregular - Hypertension Blood Pressure Sitting - Right Arm: 124/62 Blood Pressure Sitting - Left Arm: 120/58 - Stress Stress: Recent - anxiety over this - Diabetes Nutrition Referral for Diabetes: Yes - Obesity Height: 5 ft 11 in Weight:: 204 lb Weight in Pounds: 204.0 lbs Body Mass Index (BMI): 28.4 Realistic Weight Goal (Loss of 1-2 lbs/week): 190 Nutritional Referral for Obesity: Yes - Physical Inactivity Physical Inactivity: Reg Exercise 30 min/day - For Smoking Smoking Risk Guidelines: Smoking Low Risk: None or quit greater than 6 months ago. Smoking Moderate Risk: Smoker or quit 6 months or less ago. Smoking High Risk: Smoker - For Dyslipidemia Dyslipidemia Risk Guidelines: Low Risk: Moderate Risk: High Risk: 15-25% fat 25.1-29% fat >/= 30% fat. <7% sat fat 7-9% sat fat >9% sat fat. <150 mg chol 150-299 mg chol >/= 300 mg chol. LDL <100 LDL 100-129 LDL >/= 130. Chol/HDL ratio <5.0 Chol/HDL ratio 5.0-6.0 Chol/HDL ratio >6.0. Triglycerides <100 Triglycerides 100-149 Triglycerides >/= 150 - For Diabetes Mellitus Diabetes Risk Guidelines: Diabetes Low Risk: HgA1c <6.5% and/or FBG <120. Diabetes Moderate Risk: HgA1c 6.6-7.9% and/or FBG 120- 180. Diabetes High Risk: HgA1c >/= 8% and/or FBG >180 - For Obesity/Overweight Obesity/Overweight Risk Guidelines: Obesity Low Risk: BMI <25.0. Obesity Moderate Risk: BMI 25-29.9. Obesity High Risk: BMI >/= 30.0 - For Hypertension Hypertension Risk Guidelines: Hypertension Low Risk: Systolic <120 and Diastolic <80. Hypertension Moderate Risk: Systolic 120-139 and Diastolic 80-89. Hypertension High Risk: Systolic >/= 140 and Diastolic >/= 90 - For Sedentary Lifestyle Sedentary Lifestyle Risk Guidelines: Sedentary Lifestyle Low Risk: >/= 1,500 kcal/week. Sedentary Lifestyle Moderate Risk: 700-1,499 kcal/week. Sedentary Lifestyle High Risk: < 700 kcal/week - For Depression Depression Risk Guidelines: Depression Low Risk: Not clinically depressed. Depression Moderate Risk: Mildly depressed. Depression High Risk: Clinically depressed - Family History Family History: Family History (Last Reviewed 09/20/18 @ 14:32 by Ren Mayen DO) Father CAD (coronary artery disease) Mother CAD (coronary artery disease) Colon cancer Brother Lung cancer Sister Alzheimer's disease Brother Lymphoma Motivation - Motivation to Participate On a scale of 1 to 10, how prepared are you to commit to attending program?: 6 10/11/18 0911 <Electronically signed by Alexandre Casper RN> Date Alexandre Casper RN Outcome assessment reviewed. Exercise plan approved as documented. Treatment plan and goals support patient needs/abilities. Continue with current plan. I certify the patient demonstrates improvement and remains willing and capable of participation. the patient continues to benefit from cardiac rehab services/training. The patient may continue at current intensity, endurance and modality and progress per protocol. 10/12/18 1215 <Electronically signed by Norris Calderon MD> Cosigner Signature: Date Norris Calderon MD CC: Signed 12 LEAD ELECTROCARDIOGRAM Observed: 09/24/2018 Status: F Source: [place] 7:56 AM [facility] REPOSITORY [facility] Cardiovascular Services [address] [place] [id number] 12 Lead EKG 09/20/18 1249 MR#: [id number] Acct: [id number] Name: MEHRAN FREY Rep #: [id number] : 1945 73 From: Pritesh Johnson MD Attending Dr: Norris Calderon MD Status: DIS IN Ordering Dr: Norris Calderon MD Date: 09/20/18 Location: ICU Sex: M C Admitted: 09/20/18 Test Reason : POST PCI Blood Pressure : / mmHG Vent. Rate : 051 BPM Atrial Rate : 051 BPM P-R Int : 152 ms QRS Dur : 074 ms QT Int : 454 ms P-R-T Axes : 038 047 025 degrees QTc Int : 418 ms Sinus bradycardia with occasional Premature ventricular complexes Otherwise normal ECG When compared with ECG of 20-SEP-2018 08:37, MANUAL COMPARISON REQUIRED, DATA IS UNCONFIRMED Confirmed by SATHISH POST, PRITESH ([id number]), social media editor CONSTANTINE SIMPSON ([id number]) on 09/24/2018 7:56:22 AM Referred By: RADHA Confirmed By:PRITESH JOHNSON MD 09/24/18 0756 Date Pritesh Johnson MD CC: Norris Calderon MD; OUT OF TOWN DOCTOR Signed 12 LEAD ELECTROCARDIOGRAM Observed: 09/24/2018 Status: F Source: [place] 7:55 AM [facility] REPOSITORY [facility] Cardiovascular Services [address] [place] [address] 12 Lead EKG 09/21/18 0417 MR#: [id number] Acct: [id number] Name: MEHRAN FREY Rep #: [id number] : 1945 73 From: Pritesh Johnson MD Attending Dr: Norris Calderon MD Status: DIS IN Ordering Dr: Norris Calderon MD Date: 09/21/18 Location: ICU Sex: M C Admitted: 09/20/18 Test Reason : AM EKG Blood Pressure : / mmHG Vent. Rate : 051 BPM Atrial Rate : 051 BPM P-R Int : 152 ms QRS Dur : 080 ms QT Int : 428 ms P-R-T Axes : 045 038 009 degrees QTc Int : 394 ms Sinus bradycardia with Premature atrial complexes Otherwise normal ECG When compared with ECG of 20-SEP-2018 12:49, MANUAL COMPARISON REQUIRED, DATA IS UNCONFIRMED Confirmed by PRITESH JOHNSON MD ([id number]), social media editor CONSTANTINE SIMPSON ([id number]) on 09/24/2018 7:55:36 AM Referred By: RADHA Confirmed By:PRITESH JOHNSON MD 09/24/18 0755 Date Pritesh Johnson MD CC: Norris Calderon MD; OUT OF TOWN DOCTOR Signed 12 LEAD ELECTROCARDIOGRAM Observed: 09/21/2018 Status: F Source: [place] 11:54 AM [facility] REPOSITORY [facility] Cardiovascular Services [address] [place] [address] 12 Lead EKG 09/20/18 0837 MR#: [id number] Acct: [id number] Name: TK,MEHRAN Huffman Rep #: [id number] : 1945 73 From: Pritesh Johnson MD Attending Dr: Norris Calderon MD Status: DIS IN Ordering Dr: Maira Vasquez MD Date: 09/20/18 Location: ICU Sex: M C Admitted: 09/20/18 Test Reason : Blood Pressure : / mmHG Vent. Rate : 064 BPM Atrial Rate : 064 BPM P-R Int : 156 ms QRS Dur : 076 ms QT Int : 408 ms P-R-T Axes : 057 026 011 degrees QTc Int : 420 ms Sinus rhythm with Premature atrial complexes with Aberrant conduction Possible Inferior infarct , age undetermined Abnormal ECG Confirmed by SATHISH POST, PRITESH ([id number]), social media editor CONSTANTINE SIMPSON ([id number]) on 09/21/2018 11:53:43 AM Referred By: CHRISTINA Confirmed By:PRITESH JOHNSON MD 09/21/18 1153 Date Pritesh Johnson MD CC: MAIRA VASQUEZ MD; Norris Calderon MD; OUT OF TOWN DOCTOR Signed DISCHARGE SUMMARY Observed: 09/21/2018 Status: F Source: [place] 8:03 AM [facility] Medical Records Department [address] [facility] [address] Discharge Summary 09/21/18 0759 MR#: [id number] Acct: [id number] Name: MEHRAN FREY Rep #: [id number] : 1945 73 From: Ren Mayen DO PCP: OUT OF TOWN DOCTOR Status: ADM IN Y Location: ICU [id number] Discharge Date and Diagnosis - Problem List Patient Problems: Active and Suspected Problems (Last Updated 09/20/18 @ 15:44 by Jojo Ruiz) Unstable angina (Acute) Stable angina (Acute) Date of Admission: 09/20/18 Date of Discharge: 09/21/18 - Primary Discharge Diagnosis Active and Suspected Problems (Last Updated 09/20/18 @ 15:44 by Jojo Ruiz) Unstable angina (Acute) Stable angina (Acute) - Secondary Discharge Diagnosis Chronic Problems (Last Updated 09/20/18 @ 15:44 by Jojo Ruiz) History of left heart catheterization (Chronic 09/20/18) Stented coronary artery (Chronic 09/20/18) CANDY to mid Diag 1 (2.5 X 12 Promus Synergy) per Dr. 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 Calderon @ [facility] Benign positional vertigo (Chronic) Hyperlipidemia (Chronic) Hypertension (Chronic) Hospital Course and Treatment Imaging Results: Clinical Impression(s) from Imaging Studies Chest X-Ray 09/20/18 08:46 IMPRESSION: Findings suggest bilateral pleural plaques likely worse on the right side with mild linear scarring at the lung bases. Electronically Signed: Vini Wilburn MD at 9:29 EST Tel [phone], Service support , Chest CTA 09/20/18 09:31 IMPRESSION: Calcified pleural plaques bilaterally. Mild scarring at the lung bases with areas of bronchiectasis. There is no evidence of a pulmonary embolism. Electronically Signed: Vini Wilburn MD at 10:40 EST Tel [phone], Service support , Procedures: Cardiac catheterization Summary of Care Provided: The patient is a 73 year old M presents with exertional angina. Patient had a CANDY to diagonal artery for 75% stenosis. His post-cath hospitalization was uncomplicated. Patient will be discharged home pending approval by cardiology.[] Patient Problems: Active and Suspected Problems (Last Updated 09/20/18 @ 15:44 by Jojo Ruiz) Unstable angina (Acute) Stable angina (Acute) - Physical Exam General: Alert, Cooperative, No apparent distress HEENT: Atraumatic, Normocephalic Oral: Moist Mucosa, No Gingival or Mucosal Lesions/ Ulcerations Lungs: Clear to auscultation, Normal air movement, No rhonchi, No wheeze Cardiovascular: Regular rate, Regular Rhythm, Normal S1, Normal S2, No murmurs Abdomen: Bowel Sounds Present, Soft, Non Tender, Non-Distended, No Hepato-splenomegaly Vital Signs Temp Pulse Resp BP Pulse Ox 36.8 C 66 15 130/69 H 100 09/21/18 04:00 09/21/18 06:00 09/21/18 06:00 09/21/18 06:00 09/21/18 06:00 Oxygen Flow Rate (L/min) 2 Oxygen Delivery Method Room Air Weight: 95.5 kg Body Mass Index (BMI) 29.2 Intake and Output for Last 24 Hours Intake Total 1620 / 1620 / Balance 1620 / 1620 / Laboratory Tests Past 24 Hrs WBC 5.7 RBC 4.77 Hgb 14.4 Hct 43.6 MCV 91.4 MCH 30.2 MCHC 33.0 RDW 13.6 RDW Differential 45.3 H WBC 5.7 WBC RBC Hgb Hct MCV MCH MCHC RDW RDW Differential Plt Count MPV Immature Gran % (Auto) Discharge Diet: Low fat/ Low Cholesterol Discharge Activity: Return to Normal Activity Call your doctor if you observe: Shortness of breath, Chest pain Home Medications: Medications to take at Discharge aspirin 81 mg tablet,delayed release 81 mg PO DAILY 09/18/18 atorvastatin 20 mg tablet 20 mg PO DAILY #30 tab 09/18/18 nitroglycerin 0.4 mg sublingual tablet 0.4 mg SUBLINGUAL Q5- 15M PRN #25 tab 09/18/18 ranitidine 150 mg tablet 150 mg PO QHS 09/18/18 Ticagrelor [Brilinta] 90 mg PO BID #60 tablet 09/21/18 Following Prescrptions Were Given to Patient: Ticagrelor [Brilinta] 90 mg PO BID #60 tablet Primary Care Physician: [facility] Doctor,Out of [Primary Care Provider] - Please Follow Up With: Norris Calderon MD When: 2 weeks Patient Instructions: ED Chest Pain NonCardiac Disposition: Home Minutes spent on discharge:: 28 Patient Condition:: Good Medical Necessity - Tobacco Use Smoking Status: Former smoker Meaningful Use Info Meaningful Use Diagnoses (Choose all that apply): None applicable Code Visit OBSV E AND M: 64553 Observation care discharge 09/21/18 08 <Electronically signed by Ren Mayen DO> Date Ren Mayen DO Cosigner Signature (if applicable): Date CC: Norris Calderon MD; Ren Mayen DO; OUT OF TOWN DOCTOR Signed DISCHARGE INSTRUCTION Observed: 09/21/2018 Status: F Source: [place] 7:59 AM [facility] REPOSITORY [facility] Medical Records Department [address] [place] [address] [place] [address] Instructions for Home/Discharge Instructions 09/21/18 0757 MR#: [id number] Acct: [id number] Name: MEHRAN FREY Rep #: [id number] : 1945 73 From: Ren Mayen DO PCP: OUT OF TOWN DOCTOR Status: ADM IN - Discharge Diagnoses Current Active Problems: Current Active and Chronic Problems (Last Updated 09/20/18 @ 15:44 by Jojo Ruiz) History of left heart catheterization (Chronic 09/20/18) Stented coronary artery (Chronic 09/20/18) CANDY to mid Diag 1 (2.5 X 12 Promus Synergy) per Dr. 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 Calderon @ [facility] Unstable angina (Acute) Stable angina (Acute) You will use the following diet at home:: Cardiac Your food should be the consistency of: Regular Your liquids should be the consistency of: Regular/Thin Discharge Activity: Return to Normal Activity Call your doctor if you observe: Shortness of breath, Chest pain Instructions: ED Chest Pain NonCardiac Allergies/Adverse Reactions: Allergies No Known Allergies Allergy (Verified 09/20/18 08:47) Medications to take at Discharge aspirin 81 mg tablet,delayed release 81 mg PO DAILY 09/18/18 atorvastatin 20 mg tablet 20 mg PO DAILY #30 tab 09/18/18 nitroglycerin 0.4 mg sublingual tablet 0.4 mg SUBLINGUAL Q5- 15M PRN #25 tab 09/18/18 ranitidine 150 mg tablet 150 mg PO QHS 09/18/18 Ticagrelor [Brilinta] 90 mg PO BID #60 tablet 09/21/18 The following prescriptions were given: Ticagrelor [Brilinta] 90 mg PO BID #60 tablet Primary Care Physician: [facility] Doctor,Out of [Primary Care Provider] - Test Results: Test results from this visit will be discussed in further detail at your follow-up appointment, if applicable. Please Follow Up With: Norris Calderon MD When: 2 weeks Proposed Discharge Date: 09/21/18 09/21/18 0759 <Electronically signed by Ren Mayen DO> Date Ren Mayen DO CC: Norris Calderon MD; OUT OF [facility] DOCTOR CBC-COMPLETE BLOOD CNT Collected: 09/21/2018 Status: F Source: [place] NO DIFF 4:20 AM [facility] REPOSITORY TYPE CODE TESTS RESULT OUT OF RANGE REFERENCE UNITS LAB L100.1000 4.4-11.0 K/mm3 Normal WBC 5.7 LAB L100.1200 4.6-6.2 M/mm3 Low RBC 4.38 LAB L100.1300 13.0-16.5 g/dl Normal HGB 13.5 LAB L100.1400 40-54 % Normal HCT 40.1 LAB L100.1500 80-94 fL Normal MCV 91.6 LAB L100.1600 27.0-32.0 pg Normal MCH 30.8 LAB L100.1700 32-36 g/gl Normal MCHC 33.7 LAB L100.1810 11.6-14.6 % Normal RDW CV 13.8 LAB L100.1820 35.1-43.9 fl High RDW SD 45.9 LAB L100.1900 150-450 K/mm3 Low PLT 143 LAB L100.2000 6.2-12.0 fl Normal MPV 10.8 Performed By: #### L100.0500 #### [facility] [address] [place], [address] BASIC METABOLIC Collected: 09/21/2018 Status: F Source: [place] PROFILE (BMP) 4:20 AM [facility] REPOSITORY TYPE CODE TESTS RESULT OUT OF RANGE REFERENCE UNITS LAB L501.0100 74-106 mg/dL Normal GLU 80 Result Comment: Please note revised GLUCOSE reference range effective 2017. LAB L501.1000 7-18 mg/dL Normal BUN 12 LAB L501.1100 0.70-1.30 mg/dL Normal CREAT,SERUM 0.87 Result Comment: The validity of the calculated GFR AND GFRAA in patients over 70 years has not been determined. Clinical correlation is essential. LAB L501.1110 >60 mL/min Normal EST GFR 91 Result Comment: Non- GFR Calc LAB L501.1115 >60 mL/min Normal EST GFR - AA 111 Result Comment: GFR Calc LAB L501.1255 ml/min Normal Estimated CRCL 82.95 LAB L501.1300 10-20 RATIO Normal BUN/CRE 13.7 LAB L501.2200 8.5-10 mg/dL Low .1 CA 8.0 LAB L501.5300 136-14 mmol/L Normal 5 NA 142 LAB L501.5600 3.5-5. mmol/L Normal 1 K 3.7 LAB L501.5900 98-107 mmol/L High CL 111 LAB L501.6100 21.0-3 mmol/L Normal 2.0 CO2 23.0 LAB L501.6200 5-15 Normal GAP 8 Performed By: #### L500.2500, L500.4100 #### [facility] [address] [place], [address] LIPID PROFILE Collected: 09/21/2018 Status: F Source: [place] 4:20 AM [facility] REPOSITORY TYPE CODE TESTS RESULT OUT OF RANGE REFERENCE UNITS LAB L501.4900 200 mg/dL Normal CHOL 187 Result Comment: <200 mg/dL Desirable 200-240 mg/dL Borderline >240 mg/dL High Risk LAB L501.5000 mg/dL Normal TRIG 111 Result Comment: The drugs N-Acetylcysteine and Metamizole may falsely depress this assay. Serum Triglycerides Reference Interval Normal <150 mg/dL Borderline high 150 - 199 mg/dL High 200 - 499 mg/dL Very High > or = 500 mg/dL LAB L501.6400 mg/dL Low HDL 26 Result Comment: The drugs N-Acetylcysteine and Metamizole may falsely depress this assay. Reference Range HDL <40 mg/dL Low HDL Cholesterol HDL >or= 60 mg/dL High HDL Cholesterol LAB L501.6500 0-130 mg/dL High LDL 139 LAB L501.6600 5-40 mg/dL Normal VLDL 22 Performed By: #### L500.2500, L500.4100 #### [facility] [address] [facility] [place], [address] HISTORY AND PHYSICAL Observed: 09/20/2018 Status: F Source: [place] EXAM 2:36 PM [facility] REPOSITORY [facility] Medical Records Department [address] [place] [address] History and Physical 09/20/18 1428 MR#: [id number] Acct: [id number] Name: MEHRAN FREY Rep #: [id number] : 1945 73 From: Ren Mayen DO PCP: OUT OF TOWN DOCTOR Status: ADM IN Y Location: ICU [id number] Problem List (1) Stable angina Status: Acute History of Present Illness Date of Admission: 09/20/18 Chief Complaint: chest pain The patient is a 73 year old M who for several weeks has been having chest pain with exertion. This chest pain associated with shortness of breath and weakness. Symptoms resolved when the patient stops doing the activity only to recur once he initiates intense activity again. Patient cell cardiology and was sent for a heart catheterization today. He was found to have 75% stenosis to the mid diagonal artery. He had a drug-eluting stent placed in the first diagonal artery. Post catheterization, patient is feeling well and has no chest pain or shortness of breath at this time. Patient admitted to the ICU from the catheterization lab. [] Past Medical History Past Medical History (Chronic Problems): Chronic Problems (Last Updated 09/17/18 @ 19:01 by Jojo Ruiz) Benign positional vertigo (Chronic) Hyperlipidemia (Chronic) Hypertension (Chronic) Medical History: Medical History (Last Updated 09/20/18 @ 14:31 by Ren Mayen DO) Benign positional vertigo (Chronic) H81.10 Hyperlipidemia (Chronic) E78.5 Hypertension (Chronic) I10 CAD (coronary artery disease) I25.10 Allergies No Known Allergies Allergy (Verified 09/20/18 08:47) Home Medications: Ambulatory Orders Medication Instructions Recorded aspirin 81 mg tablet,delayed 81 mg PO DAILY 09/18/18 release Surgical History: herniorrhaphy, - - both shoulders. both carpal tunnels. Lives: Spouse/ Significant Other Smoking Status: Former smoker Drugs: None - *Family History Maternal Family History: Family History (Last Reviewed 09/20/18 @ 14:32 by Ren Mayen DO) Father CAD (coronary artery disease) Mother CAD (coronary artery disease) Colon cancer Brother Lung cancer Sister Alzheimer's disease Brother Lymphoma Review of Systems Constitutional: Denies: Anorexia, Chills, Fever Eyes: Denies: Blurred vision, Double vision HEENT: Denies: Head Aches, Sinus Congestion, Sinus Drainage Cardiovascular: Reports: Chest Pain. Denies: Palpitations Respiratory: Reports: Shortness of breath upon exertion. Denies: Cough, Shortness of breath at rest, Sputum production Gastrointestinal: Denies: Abdominal Pain, Nausea, Vomiting Genitourinary: Denies: Dysuria Musculoskeletal: Denies: Joint Pain, Joint Tenderness Skin: Denies: Rash, Wounds Neurological: Denies: Numbness, Tingling, Focal weakness Psychiatric: Denies: Anxiety, Depression Hematologic/ Lymphatic: Denies: Easy Bruising, Easy Bleeding, Hx of blood clot Comment: A 10 point review of systems were negative except as mentioned in the history of present illness and the other review of systems. VTE Information - Inpt Only VTE Present on Admission: No VTE Mechan Device Prophylaxis: SCD's Patient Problems: Active and Suspected Problems (Last Updated 09/17/18 @ 19:01 by Jojo Ruiz) Unstable angina (Acute) Stable angina (Acute) - Physical Exam General: Alert, Cooperative, No apparent distress HEENT: Atraumatic, Normocephalic Oral: Moist Mucosa, No Gingival or Mucosal Lesions/ Ulcerations Neck: No Nodes, Thyroid Normal Size and Texture Lungs: Clear to auscultation, Normal air movement, No rhonchi, No wheeze Cardiovascular: Regular rate, Regular Rhythm, Normal S1, Normal S2, No murmurs Abdomen: Bowel Sounds Present, Soft, Non Tender, Non-Distended, No Hepato-splenomegaly Extremities: No edema, No Calf Tenderness Skin: No rashes, No breakdown Musculoskeletal: No Tenderness to Palpation of Joints or Extremities, No Muscle Wasting Psych/Mental Status: Normal Affect, Appropriate Vital Signs Temp Pulse Resp BP Pulse Ox 36.3 C L 50 L 27 H 111/66 100 09/20/18 12:51 09/20/18 12:51 09/20/18 12:51 09/20/18 12:51 09/20/18 12:51 Oxygen Flow Rate (L/min) 2 Oxygen Delivery Method Room Air Weight: 95.254 kg Body Mass Index (BMI) 29.2 Laboratory Tests Past 24 Hrs WBC 5.7 RBC 4.77 WBC RBC Assessment/Plan All Active Problems (Last Updated 09/17/18 @ 19:01 by Jojo Ruiz) Unstable angina (Acute) Stable angina (Acute) Shortness of breath (Acute) Chest pain (Acute) 1. Stable angina * With a 75% stenosis of the mid diagonal artery. Status post drug-eluting stent to the diagonal artery. * Patient currently being monitored in the ICU post cardiac catheterization with stent * Continue with statin, aspirin and Brilinta * Patient currently on bedrest until 1630 2. DVT prophylaxis with SCDs. Code Visit OBSV E AND M: 29304 Initial observation care L2 09/20/18 1436 <Electronically signed by Ren Mayen DO> Date Ren Mayen DO Cosigner Signature: Date (if applicable) CC: eRn Mayen DO; OUT OF TOWN DOCTOR Signed ACT ACTIVATED CLOTTING Collected: 09/20/2018 Status: F Source: [place] TIME 12:16 PM [facility] REPOSITORY TYPE CODE TESTS RESULT OUT OF RANGE REFERENCE UNITS LAB L9100.0100 74-137 sec High ACTk CLOT 202 TIME Performed By: #### L9100.0100 #### [facility] Point of Care [address] [place] [address] ECHO, COMPLETE W/ Observed: 09/20/2018 Status: F Source: [place] CONTRAST 11:13 AM [facility] REPOSITORY [facility] Cardiovascular Services [address] [place] [address] Echo Complete W/ Contrast 09/20/18 0923 MR#: [id number] Acct: [id number] Name: MEHRAN FREY Rep #: [id number] : 1945 73 From: Norris Calderon MD Attending Dr: Status: DEP ER Ordering Dr: Norris Calderon MD Date: 09/20/18 Location: ED Sex: M C Admitted: Reason For Study: CHEST PAIN Procedure This was a 2D Doppler, Color Flow transthoracic echocardiogram. The study was technically difficult. Due to body habitus. Contrast injection was performed. Exam performed portable in ED. Left Ventricle Mild concentric left ventricular hypertrophy. The estimated ejection fraction is 75 %. Stage 1 diastolic dysfunction. No regional wall motion abnormalities noted. Right Ventricle Mildly dilated right ventricle. Normal systolic function. Atria Normal left atrium. Normal right atrium. Normal atrial septum. Mitral Valve The mitral valve is structurally normal. No prolapse or stenosis seen. Tricuspid Valve Normal tricuspid valve. Trivial tricuspid valve insufficiency. Right ventricular systolic pressure estimated to be 13 mmHg. Aortic Valve Normal aortic valve. Trisinus/trileaflet aortic valve. Pulmonic Valve The pulmonic valve is not well visualized. Great Vessels Normal aortic root. Normal arch. Normal inferior vena cava. Inferior vena cava collapse with sniff. Pericardium/Pleural No pericardial effusion. Medication Diluted definity 2.0ml given slow IV push to enhance endocardial definition. MMode/2D Measurements AND Calculations LVIDd: 4.3 cm IVSd: 1.2 cm Ao root diam: 3.3 cm LVIDs: 2.7 cm LVPWd: 1.2 cm LA dimension: 3.7 cm RVDd: 3.7 cm FS: 36.9 % LAV(MOD-bp): 48.4 ml LA A4 area: 17.2 cm2 RA A4 area: 16.6 cm2 LAV(MOD-bp) Indexed: 22.5 ml/m2 LAV(MOD-sp2): 46.1 ml LAV(MOD-sp4): 45.1 ml Time Measurements MV dec time: 0.25 sec Doppler Measurements AND Calculations MV E max justin: 61.6 cm/sec Lat Peak E' Justin: 9.6 cm/sec Med Peak E' Justin: 7.6 cm/sec MV A max justin: 72.0 cm/sec E/E' lat: 6.4 E/E' med: 8.1 MV E/A: 0.86 Ao V2 max: 127.1 cm/sec LV V1 max: 95.4 cm/sec PA V2 max: 80.0 cm/sec Ao max P.5 mmHg LV V1 max P.6 mmHg TR max justin: 144.8 cm/sec TR max P.4 mmHg Interpretation Summary The estimated ejection fraction is 75 %. Stage 1 diastolic dysfunction. Mildly dilated right ventricle. Trivial tricuspid valve insufficiency. Right ventricular systolic pressure estimated to be 13 mmHg. The study was technically difficult. There is no comparison study available. Contrast injection was performed. Ordering Physician: Norris Calderon Referring Physician: [facility] Performed By: Sandrita Daly, ROSA MARIA, RVT 09/20/181111 Date Norris Calderon MD CC: MAIRA VASQUEZ MD; Norris Calderon MD; OUT OF TOWN DOCTOR Date Dictated: 09/20/18922 Date Transcribed: 09/20/181111 Fire Sprinkler Apparatus Inspector: Signed EMERGENCY DEPARTMENT Observed: 09/20/2018 Status: F Source: [place] SUMMARY 10:54 AM [facility] REPOSITORY [facility] Medical Records Department [address] [place] [address] Emergency Department Summary 09/20/18 0849 MR#: [id number] Acct: [id number] Name: TKMEHRAN Rep #: [id number] : 1945 73 From: Maira Vasquez MD PCP: OUT OF TOWN DOCTOR Status: REG ER History of Present Illness Chief Complaint: Chest Pain Informant: Patient, Family Onset: Weeks - 3-4 Context: Onset with activity Timing: Intermittent, Lasts - 15-20 min w/ most episodes Quality: tightness Location: left chest Current Severity: Moderate Maximum Severity: Moderate Worsened by: exertion, yawning/deep breathing Relieved by: rest usually, but not this AM Associated Symptoms: sob, weak, lightheaded Narrative: Patient has been having these symptoms for 3 or 4 weeks and they sound like stable angina. He had a stress test and an echocardiogram about 3 days ago at the [place] that were unremarkable, and then saw local cardiology Dr. Calderon, and was advised that if he continues having episodes that they should bring him to the hospital and he would plan on doing a heart cath because his symptoms are concerning. This morning, may have been present for 1-2 hours despite resting, and this is unusual and he feels very weak which is also new. Also new, radiation into the right upper extremity. No other radiations. The chest discomfort has a pleuritic component. No syncope. He denies any history of DVT or PE, leg pain or swelling, recent long travel or immobilization, or recent hospitalizations/surgery. Past Medical History - Allergies and Home Meds Allergies/Adverse Reactions: Allergies No Known Allergies Allergy (Verified 09/20/18 08:47) Past Medical History: None Surgical History: herniorrhaphy, - - both shoulders. both carpal tunnels. Lives: Spouse/ Significant Other Smoking Status: Never smoker Drugs: None Review of Systems General: Reports: Malaise. Denies: Chills, Fever, Sweats Eyes: Denies: Visual changes - bilaterally, Diplopia ENT: Reports: Rhinorrhea. Denies: Sore throat Cardiovascular: Reports: Chest pain. Denies: Palpitations, Heart racing Respiratory: Reports: Dyspnea. Denies: Cough, Dyspnea on exertion Gastrointestinal: Reports: Nausea - off and on. Denies: Abdominal pain, Vomiting, Diarrhea, Melena, Hematochezia Genitourinary: Denies: Dysuria, Hematuria, Frequency Musculoskeletal: Reports: Extremity Pain - right upper. Denies: Neck pain, Back pain, Swelling Skin: Denies: Rash, Wounds Neurological: Denies: Headache, Weakness, Parasthesia, Numbness Psych: Denies: Suicidal thoughts, Suicidal ideations Endocrine: Denies: Heat intolerance, Cold intolerance Hematologic: Denies: Easy bruising, Easy bleeding Allergy: Denies: Swelling of the mouth, Swelling of the tongue Physical Exam Vital Signs/Narrative: Vital Signs 09/20/18 08:37 97.7 F L 64 24 H 137/100 H 99 Inital Vital Signs reviewed: Yes General: Well nourished, Well developed, - - appears uncomfortable, tachypneic w/o distress, generally weak, but keenly alert and conversational Head: Normocephalic, Atraumatic Eyes: Perrl, EOMI ENT: Moist mucous membranes, No rhinorrhea Neck: Supple, Nontender, No JVD Cardiovascular: Regular rate, Regular rhythm - w/ occasional irregularity, No murmurs Respiratory: No distress, CTA bilaterally, Chest nontender Abdomen: Soft, Nontender, Nondistended, Normal bowel sounds Back: Nontender, Normal Inspection Extremities: Nontender - incl no calf tenderness bilat, No edema Skin: Normal color, No rash Neurological: Alert, Oriented x3, Cranial nerves II-XII grossly intact, Normal Strength, Normal Sensation Psychological: Normal affect Diagnostic/Tx/Re-eval Impressions Chest X-Ray 09/20/18 08:46 IMPRESSION: Findings suggest bilateral pleural plaques likely worse on the right side with mild linear scarring at the lung bases. Electronically Signed: Vini Wilburn MD at 9:29 EST Tel [phone], Service support , Chest CTA 09/20/18 09:31 IMPRESSION: Calcified pleural plaques bilaterally. Mild scarring at the lung bases with areas of bronchiectasis. There is no evidence of a pulmonary embolism. Electronically Signed: Vini Wilburn MD at 10:40 EST Tel [phone], Service support , 09/20/18 08:46 Chest 1 View (Portable) [RAD] Stat 09/20/18 09:31 CTA Chest W/WO Contrast [CT] Stat Laboratory Results WBC 5.7 WBC RBC Hgb Hct MCV MCH MCHC RDW RDW Differential Plt Count MPV Immature Gran % (Auto) Neut % (Auto) Lymph % (Auto) - Rhythm Strip Rhythm Strip: Sinus Rhythm Rate: 60 Ectopy: PVC(s), PAC(s) - EKG Initial EKG Interpretation: Sinus Rhythm, No Acute Injury Pattern, - - PVC, PAC. flat T's aVF and inverted in III but the rest are OK. No ST kecia/dep. - Medical Decision Making Patient symptoms are very concerning for unstable angina. His EKG shows no acute injury pattern, just ectopy. His troponin is negative and his blood work looks okay, but his d-dimer is elevated. Chest x-ray shows some scarring at the bases but is otherwise unremarkable. Discussed with Dr. Calderon several times, who advised doing the usual CT angiography of the chest to rule out PE as opposed to VQ scanning at this time, as it will not prevent him from being able to undergo heart cath if necessary. CTA was negative for pulmonary embolism. Incidentally noted was some basilar bronchiectasis and calcified plaques. Patient was given aspirin, followed by Brilinta and heparin bolus of 4000 units per cardiology, and nitroglycerin. After 2 nitroglycerin, his discomfort is a 1 and so nitroglycerin paste was placed on his chest. On reevaluation he is feeling well and chest pain-free. His CAT scan showed some calcifications in the coronary arteries. He is being observed in the ER until he is to be taken for heart catheterization. ED Disposition - Plan for ED Patient: Disposition: Acute Care Hospital [facility] Chief Complaint: Chest Pain Diagnosis: Unstable angina What to do if you have Problems For any increased pain, shortness of breath, bleeding, nausea or vomiting, chest pain, or any unexpected problems, contact your Primary Care Provider. Call [employer] [facility] ([phone]) or report to the closest Emergency Room. Call 911 if necessary. 09/20/18 1054 <Electronically signed by Maira Vasquez MD> Date Maira Vasquez MD Cosigner Signature (If Indicated): Date CC: OUT OF TOWN DOCTOR CTA CHEST W/WO Observed: 09/20/2018 Status: F Source: [place] CONTRAST 9:32 AM [facility] REPOSITORY [facility] Imaging Services [address] [place] [address] CTA Chest W/WO Contrast MR#: [id number] Acct: [id number] Name: TKMEHRAN Huffman Rep #: [id number] : 1945 M 73 From: Vini Wilburn MD PCP: OUT OF TOWN DOCTOR Status: REG ER Study: CTA Chest W/WO Contrast Date of Exam: 09/20/18 Exam# [id number] Ordering Dr: Maira Vasquez MD STUDY: CTA CHEST REASON FOR EXAM: Male, 73 years old. Chest pain and shortness of breath. RADIATION DOSAGE (If Supplied By Facility): CTDIvol = ( 14.73 ) mGy, DLP = ( 618.10 ) mGycm TECHNIQUE: The examination was performed with the intravenous administration of 100 ml of Isovue 370 contrast material. Post-processing of the angiographic images was performed, with multiplanar reformation and 3D reconstruction. Individualized dose optimization techniques were used for this CT. COMPARISON: Comparison is made with prior chest radiograph done earlier in the day. FINDINGS: Normal enhancement of the main pulmonary artery and right and left pulmonary arteries. Normal enhancement of the bilateral peripheral pulmonary arteries. There is no demonstrated pulmonary embolism. Normal thoracic aorta and visualized great vessels. There is no demonstrated aortic dissection. There are calcifications of the coronary arteries. Normal mediastinum. Normal hilar regions. Normal visualized trachea and bronchi. The lungs are well expanded. Mild degree of increased linear markings with areas of confluence at both lung bases suggestive of vertebrobasilar scarring. Mild degree of bronchiectasis at the lung bases. There is evidence of bilateral pleural plaque calcifications. Normal chest wall structures. There are degenerative changes of thoracic spine. Normal visualized upper abdomen. CT/CTA Chest W/WO Contrast IMPRESSION: Calcified pleural plaques bilaterally. Mild scarring at the lung bases with areas of bronchiectasis. There is no evidence of a pulmonary embolism. Electronically Signed: Vini Wilburn MD at 10:40 EST Tel [phone], Service support , CC: MAIRA VASQUEZ MD; OUT OF TOWN DOCTOR Fire Sprinkler Apparatus Inspector: Signed PROTHROMBIN TIME W/INR Collected: 09/20/2018 Status: F Source: [place] 9:12 AM [facility] REPOSITORY Order Comment: VERBAL ORDER ADDED BY LIBBY 0908 TYPE CODE TESTS RESULT OUT OF RANGE REFERENCE UNITS LAB L300.4150 11.7-14.9 SECONDS Normal PROTIME 13.8 LAB L300.4200 Normal INR 1.1 Performed By: #### L300.3900 #### [place] [facility] [address] [place], [address] CBC W/DIFF, AUTOMATED Collected: 09/20/2018 Status: F Source: [place] 8:55 AM [facility] REPOSITORY TYPE CODE TESTS RESULT OUT OF RANGE REFERENCE UNITS LAB L100.1000 4.4-11.0 K/mm3 Normal WBC 5.7 LAB L100.1200 4.6-6.2 M/mm3 Normal RBC 4.77 LAB L100.1300 13.0-16.5 g/dl Normal HGB 14.4 LAB L100.1400 40-54 % Normal HCT 43.6 LAB L100.1500 80-94 fL Normal MCV 91.4 LAB L100.1600 27.0-32.0 pg Normal MCH 30.2 LAB L100.1700 32-36 g/gl Normal MCHC 33.0 LAB L100.1810 11.6-14.6 % Normal RDW CV 13.6 LAB L100.1820 35.1-43.9 fl High RDW SD 45.3 LAB L100.1900 150-450 K/mm3 Normal PLT 164 LAB L100.2000 6.2-12.0 fl Normal MPV 10.7 LAB L100.2100 47-70 % Normal NEUT% 55.9 LAB L100.2200 19-41 % Normal LY% 29.4 LAB L100.2300 0-10 % High MONO% 11.7 LAB L100.2400 0-5 % Normal EO% 2.6 LAB L100.2500 0-1 % Normal BASO% 0.2 LAB L100.2550 0.0-0.9 % Normal IM GRAN % 0.200 Result Comment: IG% - Immature Granulocytes (promyelocytes, myelocytes and metamyelocytes) > 1% indicates that a LEFT SHIFT is Present. LAB L100.2620 2.0-7.7 X10 3/uL Normal Absolute Neut 3.2 LAB L100.2720 0.83-4.51 X10 3/ul Normal Absolute Lymph 1.69 Performed By: #### L100.0100 #### [facility] [address] [place], [place], [address] BASIC METABOLIC Collected: 09/20/2018 Status: F Source: [place] PROFILE (BMP) 8:55 AM [facility] REPOSITORY TYPE CODE TESTS RESULT OUT OF RANGE REFERENCE UNITS LAB L501.0100 74-106 mg/dL Normal GLU 100 Result Comment: Fasting Glucose result from 100 to 125 mg/dL suggests IMPAIRED HOMEOSTASIS per A.D.A. criteria. Please note revised GLUCOSE reference range effective 2017. LAB L501.1000 7-18 mg/dL Normal BUN 15 LAB L501.1100 0.70-1.30 mg/dL Normal CREAT,SERUM 0.96 Result Comment: The validity of the calculated GFR AND GFRAA in patients over 70 years has not been determined. Clinical correlation is essential. LAB L501.1110 >60 mL/min Normal EST GFR 82 Result Comment: Non- GFR Calc LAB L501.1115 >60 mL/min Normal EST GFR - AA 99 Result Comment: GFR Calc LAB L501.1255 ml/min Normal Estimated CRCL 75.17 LAB L501.1300 10-20 RATIO Normal BUN/CRE 15.6 LAB L501.2200 8.5-10 mg/dL Normal .1 CA 8.8 LAB L501.5300 136-14 mmol/L Normal 5 NA 140 LAB L501.5600 3.5-5. mmol/L Normal 1 K 4.1 LAB L501.5900 98-107 mmol/L High CL 108 LAB L501.6100 21.0-3 mmol/L Normal 2.0 CO2 24.0 LAB L501.6200 5-15 Normal GAP 8 Performed By: #### L500.2500, L501.4010 #### [facility] [address] [place], [address] TROPONIN-I Collected: 09/20/2018 Status: F Source: [place] 8:55 AM [facility] REPOSIT[facility] TYPE CODE TESTS RESULT OUT OF RANGE REFERENCE UNITS LAB L501.4010 <0.045 ng/mL Normal < 0.015 TROPONIN-I Result Comment: TROPONIN-I EXPECTED VALUES <0.045 Negative 0.045 - 0.590 Consistent with Cardiac Damage > OR = 0.600 Critical Value Not every elevated troponin is indicative of ND. These values should be used with clinical judgement in examining the patient's clinical picture for diagnosis. To establish a diagnosis of ND versus myocardial injury, there must be a demonstrated rise and/or fall in the troponin values, in addition to ischemic symptoms, EKG changes, new regional wall motion abnormality, and/or angiographical evidence. PLEASE NOTE: REFERENCE RANGES EDITED 18 Performed By: #### L500.2500, L501.4010 #### [facility] [address] [place], [address] PARTIAL THROMBOPLAST Collected: 09/20/2018 Status: F Source: [place] TIME 8:55 AM [facility] REPOSITORY TYPE CODE TESTS RESULT OUT OF RANGE REFERENCE UNITS LAB L300.4310 24.1-36.2 Seconds Normal PTT 25.1 Performed By: #### L300.4310, L300.8000 #### [facility] [address] [place], [address] D-DIMER QUANTITATIVE Collected: 09/20/2018 Status: F Source: [place] (DVT/PE) 8:55 AM [facility] REPOSITORY TYPE CODE TESTS RESULT OUT OF RANGE REFERENCE UNITS LAB L300.8000 0.27-0.49 FEU/ug/m High alert D-DIMER 1.25 QUANT Result Comment: CRITICAL VALUE VERIFIED. [facility] 0925 Flynn Loya. RESULTS READ BACK BY SAME . D-Dimer ELEVATED (>0.49): Additional studies and clinical assessments are indicated to conclude diagnosis of: Deep Vein Thrombosis (DVT) or Pulmonary Embolism (PE) Performed By: #### L300.4310, L300.8000 #### [facility] [address] [place], [address] ERYTHROCYTE SED RATE Collected: 09/20/2018 Status: F Source: [place] 8:55 AM [facility] REPOSITORY TYPE CODE TESTS RESULT OUT OF RANGE REFERENCE UNITS LAB L102.0000 0-20 mm/hr Normal SED RATE 6 Performed By: #### L101.9900 #### [facility] [address] [place], [address] CHEST 1 VIEW Observed: 09/20/2018 Status: F Source: [place] (PORTABLE) 8:47 AM [facility] REPOSITORY [facility] Imaging Services [address] [place] [address] Chest 1 View (Portable) MR#: [id number] Acct: [id number] Name: MEHRAN FREY Rep #: [id number] : 1945 M 73 From: Vini Wilburn MD PCP: OUT OF TOWN DOCTOR Status: REG ER Study: Chest 1 View (Portable) Date of Exam: 09/20/18 Exam# [id number] Ordering Dr: Maira Vasquez MD STUDY: X-RAY CHEST REASON FOR EXAM: Male, 73 years old. Chest pain. Shortness of breath. TECHNIQUE: Single AP portable view of the chest. COMPARISON: None. FINDINGS: EKG electrodes are seen. Mild increased linear markings at the lung bases suggests mild scarring. I suspect bilateral pleural plaques. This slightly more prominent on the right side. Normal size heart. Normal mediastinum and claire. Normal visualized pulmonary arteries. Normal visualized aortic arch and descending thoracic aorta. There are degenerative changes of the visualized thoracic spine. An anchor clip is seen overlying the left humeral head suggestive of prior rotator cuff surgery. There is no demonstrated abnormality of the visualized soft tissue structures of the upper abdomen. RAD/Chest 1 View (Portable) IMPRESSION: Findings suggest bilateral pleural plaques likely worse on the right side with mild linear scarring at the lung bases. Electronically Signed: Vini Wilburn MD at 9:29 EST Tel [phone], Service support , CC: MAIRA VASQUEZ MD; OUT OF TOWN DOCTOR Fire Sprinkler Apparatus Inspector: Signed 12 LEAD EKG PERFORMED Observed: 09/18/2018 Status: F Source: [place] [facility] 3:02 PM [facility] RE[facility]IT[facility] [address] [place] [address] 12 Lead EKG performed by MEMO 09/18/18 1501 MR#: [id number] Acct: [id number] Name: MEHRAN FREY Rep #: [id number] : 1945 73 From: Norris Calderon MD Attending Dr: Norris Calderon MD Status: DEP AMB Ordering Dr: Norris Calderon MD Date: 09/18/18 Location: [facility] Sex: M C Admitted: BMS/12 Lead EKG performed by [facility] ECG Report Interpretation Sinus Rhythm - frequent PAC s # PACs = 2.WITHIN NORMAL LIMITSElectronically signed on 09/21/2018 at 15:09 by Norris Calderon Software Version 8610 09/21/18 1511 Date Norris Calderon MD CC: Date Dictated: 09/18/18 1501 Date Transcribed: 09/18/18 150 Fire Sprinkler Apparatus Inspector: Signed ALLERGIES ALLERGIES DATE TYPE / CODE NAME / CODE REACTION SEVERITY SOURCE 10/16/2018 Drug ticagrelor/F0060 Shortness of [place] Allergy/416 66599(RXNORM) breath Community 066760([facility] ED CT) Repository 10/11/2018 Drug No Known Unknown [place] Allergy/416 Allergies/M24796 Community 031460([facility] Drug/056317 No Known [facility] 003([facility]erg[facility] CT) System Repository ENCOUNTERS ENCOUNTERS ADMIT/DISCHARGE ACCOUNT NUMBER ADMITTING ENCOUNTER LOCATION SOURCE CLASS 10/29/2018 [id number] Ambulatory [facility] ding:SL Repository 10/16/2018/10/16/19 [id number] Ambulatory BMSBuilding: [place] 19 [facility] Repository 10/11/2018 [id number] Ambulatory [facility] ding:CR Repository 09/20/2018 [id number] Lisa Calderon BMSBuilding: [place] [facility] Repository 09/20/2018 [id number] Calderon, Ambulatory BMSBuilding: [place] BMS.[facility] Repository 09/20/2018 [id number] Calderon, Ambulatory BMSBuilding: [place] BMS.CF.[facility] Repository 09/20/2018/09/21/20 [id number] Calderon, Inpatient [place] 18 [place] Encounter [facility] ding:ICURoom Repository : IAXOT902Qcu: 1 09/20/2018/09/21/20 [id number] Ambulatory BMSBuilding: [place] 18 [facility] Repository 09/20/2018/09/21/20 [id number] Ambulatory BMSBuilding: [place] [facility] Repository 09/18/2018/09/18/20 [id number] Ambulatory BMSBuilding: [place] 18 BMS.[facility] Repository 07/16/2018/07/16/20 [id number] Akin Stubbs Ambulatory [facility] 18 Giovanny leo:[facility] Repository 06/13/2018/06/13/20 [id number] [place], Ambulatory [facility] 18 Marily L eBuilding:[facility] oom: Room 2 Repository 12/27/2017/12/28/19 [id number] [place], Ambulatory [facility] 18 Marily L eBuilding:[facility] oom: Room 1 Repository 12/12/2017/12/13/19 [id number] [facility] ding:AshFamP Repository [facility] 12/06/2017/12/06/19 [id number] Akin Stubbs Ambulatory [facility] [place] 18 Giovanny leo:[facility] Repository PAYERS PAYERS ENCOUNTER GUARANTOR PAYER SUBSCRIBER SOURCE 10/29/2018 MEHRAN Costello [id number] TR Insurance[facility] [address] A BPolicy Number: [id number], [place] [address]Uog: [id number] Repository Date:2018-10-18 () 10/29/2018 Secondary MEHRAN Huffman [place] Insurance:HUMANA CHRISTINEDOB: Community MEDICARE [facility] [id number] Hospital Number: Repository [id number] Date:1843-07-92ML [address] [address]AA: 10/29/2018 Tertiary NOT GIVENUNK [place] Insurance:SELF [facility] Number: Effective Repository Date:2018-10-18 10/16/2018 MEHRAN Huffman Primary MEHRAN Costello [id number] TR Insurance:MEDICARE CHRISTINEDOB: Community [address] [place] [address] PART A BPolicy Number: [id number], [place] [address]Ztr: [id number] Repository Date:2018-09-21 () 10/16/2018 Secondary MEHRAN Huffman [place] Insurance:HUMANA CHRISTINEDOB: Community MEDICARE [facility] [id number] Hospital Number: Repository [id number] Date:[id number] [address] [address]PO: 10/16/2018 Tertiary NOT GIVENUNK [place] Insurance:SELF PAY [facility] Number: Effective Repository Date:2018-10-12 10/11/2018 MEHRAN Huffman Primary MEHRAN Costello [id number] TR Insurance:MEDICARE CHRISTINEDOB: Community [address] [place] [address] PART A BPolicy Number: [id number], [place] [address]Hlr: [id number] Repository Date:2018-09-24 () 10/11/2018 Secondary MEHRAN Huffman [place] Insurance:HUMANA CHRISTINEDOB: Community [facility] [id number] Hospital Number: Repository [id number] Date:[id number] [address] [address]FW: 10/11/2018 Tertiary NOT GIVENUNK [place] Insurance:SELF PAY [facility] Number: Effective Repository Date:2018-09-24 09/20/2018 MEHRAN Huffman Primary MEHRAN Costello [id number] TR Insurance:MEDICARE CHRISTINEDOB: Community [address] [place] [address] PART A BPolicy Number: [id number], [place] [address]Moq: [id number] Repository Date:2018-09-20 () 09/20/2018 Secondary MEHRAN Huffman [place] Insurance:HUMANA CHRISTINEDOB: Community MEDICARE [facility] [id number] Hospital Number: Repository [id number] Date:[id number] [address] [address]YV: 09/20/2018 Tertiary NOT GIVENUNK [place] Insurance:SELF PAY [facility] Hospital Number: Effective Repository Date:2018-09-20 09/20/2018 MEHRAN Huffman Primary MEHRAN Martinoster [id number] TR Insurance:MEDICARE CHRISTINEDOB: Community [address] [place] [address] PART A BPolicy Number: [id number], [place] [address]Uur: [id number] Repository Date:2018-09-20 () 09/20/2018 Secondary MEHRAN Huffman Trang Insurance:HUMANA CHRISTINEDOB: Community MEDICARE [facility] [id number] Hospital Number: Repository [id number] Date:0658-06-66TD [address] [address]HJ: 09/20/2018 Tertiary NOT GIV[place]UNK [place] Insurance:SELF PAY [facility] Hospital Number: Effective Repository Date:2018-09-20 09/20/2018 MEHRAN Huffman Primary MEHRAN Martinoster [id number] TR Insurance:MEDICARE CHRISTINEDOB: Community [address] [place] [address] PART A BPolicy Number: [id number], [place] [address]Zan: [id number] Repository Date:2018-09-20 () 09/20/2018 Secondary MEHRAN Huffman [place] Insurance:HUMANA CHRISTINEDOB: Community MEDICARE [facility] [id number] Hospital Number: Repository [id number] Date:7948-09-90RQ [address] [address]IC: 09/20/2018 Tertiary NOT [place] Insurance:SELF PAY [facility] Number: Effective Repository Date:2018-09-20 09/20/2018 MEHRAN Huffman Primary MEHRAN Huffman Trang [id number] TR Insurance:MEDICARE CHRISTINEDOB: Community [facility] PART A BPolicy Number: [id number], [place] [address]Hun: [id number] Repository Date:2018-09-20 () 09/20/2018 Secondary MEHRAN Armida Trang Insurance:HUMANA CHRISTINEDOB: [facility] [id number] Hospital Number: Repository [id number] Date:[id number] [address] [address]GI: 09/20/2018 Tertiary NOT GIVENUNK [place] Insurance:SELF PAY [facility] Number: Effective Repository Date:2018-09-20 09/20/2018 MEHRAN Huffman Primary MEHRAN Huffman Trang [id number] TR Insurance:MEDICARE CHRISTINEDOB: Community [facility] PART A BPolicy Number: [id number], [place] [address]Bsb: [id number] Repository Date:2018-09-20 () 09/20/2018 Secondary MEHRAN Huffman Trang Insurance:HUMANA CHRISTINEDOB: Community COMMERCIALPoly [id number] Hospital Number: Repository [id number] Date:[id number] [address] [address]OM: 09/20/2018 Tertiary NOT [place] Insurance:SELF PAY [facility] Number: Effective Repository Date:2018-09-20 09/20/2018 MEHRAN Huffman Primary MEHRAN Costello [id number] TR Insurance:MEDICARE CHRISTINEDOB: [place] [address] PART A BPolicy Number: [id number] Hospital , [place] [address]Wfi: [id number] Repository Date:2018-09-20 (HP) 09/20/2018 Secondary MEHRAN Huffman Trang Insurance:HUMANA CHRISTINEDOB: Community COMMERCIALPolicy [id number] Hospital Number: Repository [id number] Date:8333-14-91NM [address] [place] [address]AD: 09/20/2018 Tertiary NOT [place] Insurance:SELF PAY [facility] Number: Effective Repository Date:2018-09-20 09/18/2018 MEHRAN Huffman Primary MEHRAN Costello [id number] TR Insurance:MEDICARE CHRISTINEDOB: Community [address] [place] [address] PART A BPolicy Number: [id number], [place] [address]Ynq: [id number] Repository Date:2018-09-17 () 09/18/2018 Secondary MEHRAN Huffman [place] Insurance:HUMANA CHRISTINEDOB: Community [facility] [id number] Hospital Number: Repository [id number] Date:[id number] [address] [place] [address]PF: 09/18/2018 Tertiary NOT [place]K [place] Insurance:SELF PAY [facility] Number: Effective Repository Date:2018-09-18 12/27/2017 MEHRAN Huffman Primary Insurance:1500 MEHRAN Schneidertan CHRISTINEDOB: MEDICARE PRIMARYPolicy CHRISTINEDOB: [facility] [id number] Number: Effective [id number] System [facility] Date:2017-12-25 - [facility] Repository [address] [place] [address] [id number] Name:CD:[id number] [facility] [address]Cvi: [address] [address]BMYGENUS[place], [place] [address]Eap: [phone]: [phone] ([phone] () () 12/27/2017 Secondary MEHRAN Schneidertan Insurance:1500 CHRISTINEDOB: [facility] Number: [id number] System Effective [facility] Repository Date:2017-12-25 - [facility] [id number] [place] Name:CD:[id number] [address]Aia: [id number] [place] [address]RR: [phone] (HP) [phone] (WP) 12/12/2017 MEHRAN Huffman Primary MEHRAN Moore CHRISTINEDOB: Insurance:MedicarePoli CHRISTINEDOB: [facility] cy Number: Effective [id number] System [address] Date:2017-12-06 - [address] Repository [address] [place] [address] [id number] [address] [place] [address] Name:CD:[id number] [address] [place] [id number]: [id number]: [id number]ON, [place] [id number]: [phone]) (HP)Tel: [phone] (HP) [phone] (WP) 12/12/2017 Secondary MEHRAN Moore Insurance:HUMANAPolicy CHRISTINEDOB: [facility] Number: Effective [id number] System Date:2017-12-06 - [facility] Repository [id number] [address] [place] [address], Name:CD:[id number] [address] [place] [id number]: [address] [place] [id number]: [phone] ([phone] (WP) 12/06/2017 MEHRAN Huffman Primary Insurance:1500 MEHRAN Moore CHRISTINEDOB: MEDICARE PRIMARYPolicy CHRISTINEDOB: [facility] Number: Effective [id number] [address] Date:2017-12-06 - [address] Repository [address] [place] [address] [id number] [address] [place] [address] Name:CD:[id number] O [place] [id number]: [id number]: [address] [address]TTZQKMOPB, [place] [address]FU: [phone]) (HP)Tel: [phone] (QY) [phone] (WP) 12/06/2017 [facility] MEHRAN Huffman Anglican Insurance:1500 CHRISTINEDOB: [facility] HUMANAPolicy Number: [id number] [facility] Repository Date:2017-12-062407[facility] [id number] [place] [id number]: Name:CD:[id number] [address] [place] [address] ()Tel: [phone]: [phone]
== END 2018-09-21 10:45 | disposition home or self-care (01) | DRG 247 ==
LOC: ED 10:54 → ICU 15:12
PROVIDERS: Emergency Provider Emergency Medicine; Visit Provider Internal Medicine Cardiovascular Disease
DX: I25.110 Atherosclerotic heart disease of native coronary artery with unstable angina pectoris (principal); I10 Essential (primary) hypertension; E78.5 Hyperlipidemia, unspecified; Z87.891 Personal history of nicotine dependence; Z82.49 Family history of ischemic heart disease and other diseases of the circulatory system; H81.10 Benign paroxysmal vertigo, unspecified ear
CPT/HCPCS: 71045; 71275; 80048; 80061; 84484; 85025; 85027; 85347; 85379; 85610; 85652; 85730; 92928; 93005; 93306; 93458; 99284; J7030; Q9957; Q9967; A4216; C1725; C1769; C1887; C1894; C8929; C9600; J2405

== ENCOUNTER → 2018-10-11 08:24 | Outpatient (CLI) | payer MEDICARE, OTHER, SELFPAY ==
[2018-09-20 12:51] VITALS: BMI 29.2
[2018-09-21 09:18] VITALS: BMI 29.2
--- NOTE | 2018-10-11 08:42 | PCM.CR.HP2 ---
CR - History & Physical - General Arrival date:: 10/11/18 Arrival time:: 08:43 Date of Referral:: 10/11/18 Date of CR Evaluation:: 10/11/18 Referring Physician: Dr. Belen Calderon Primary Diagnosis: PCI - History of Present Cardiac Event Onset Date: Enter Onset Date of cardiac illnesses in Comment field below Current stable Angina Pectoris:: No Acute Myocardial Infarction within 12 months:: No Coronary Artery Bypass Graft:: No Heart valve replacement or repair:: No PTCA or coronary stenting:: Yes - 09/20/18 Heart or Heart-Lung Transplant:: No Heart Failure EF <35%:: No Type of Symptoms:: Chest pain, SOB, dizziness Interventions with present event:: PCI Were there any complications?: no - Medications Home Medications: Ambulatory Orders Medication Instructions Recorded aspirin 81 mg tablet,delayed 81 mg PO DAILY 09/18/18 release nitroglycerin 0.4 mg sublingual 0.4 mg SUBLINGUAL Q5-15M PRN #25 09/18/18 tablet tab Ticagrelor [Brilinta] 90 mg PO BID #60 tab 09/21/18 atorvastatin 20 mg tablet 20 mg PO DAILY #30 tab 09/21/18 ranitidine 150 mg tablet 150 mg PO QHS #30 tab 09/21/18 - Allergies Allergies/Adverse Reactions: Allergies No Known Allergies Allergy (Verified 09/20/18 08:47) - Sleep Disorder Evaluation Hx of Sleep Apnea: No Do you snore loudly (louder than talking or can be heard through closed doors)?: Yes Do you often feel tired/ fatigued/ sleepy during daytime?: No Has anyone observed you stop breathing during sleep?: Yes History of Hypertension (for STOP score): No STOP Results: Positive Advanced Directives - Advanced Directives Power of Construction Controller: Yes Living Will: Yes Advance Directives Information Provided: Yes Advance Directives on File: No DNR Order?:: No - MOLST See MOLST form: No Past Medical History - Past Medical Illness Medical History: Past Medical History (Last Updated 09/20/18 @ 15:44 by Jojo Ruiz) Atherosclerotic heart disease of [place] coronary artery without angina pectoris (Chronic) I25.10 CANDY to mid Diag 1 (2.5 X 12 Promus Synergy) per Dr. Calderon @ [facility] Benign positional vertigo (Chronic) H81.10 Hyperlipidemia (Chronic) E78.5 Hypertension (Chronic) I10 CAD (coronary artery disease) I25.10 - Past Surgical History Surgical History: Past Surgical History (Last Updated 09/20/18 @ 15:44 by Jojo Ruiz) History of left heart catheterization (Chronic) Onset Date: 09/20/18 Z98.890 Stented coronary artery (Chronic) Onset Date: 09/20/18 Z95.5 CANDY to mid Diag 1 (2.5 X 12 Promus Synergy) per Dr. Calderon @ [facility] Surgical History: herniorrhaphy, - - both shoulders. both carpal tunnels. Back surgery. - Family History Summary Family History: Family History (Last Reviewed 09/20/18 @ 14:32 by Ren Mayen DO) Father CAD (coronary artery disease) Mother CAD (coronary artery disease) Colon cancer Brother Lung cancer Sister Alzheimer's disease Brother Lymphoma Social History - Smoking History Smoking Status: Former smoker Years Smokin Packs Smoked per Day: 2 Hx Smoking Cessation Date: quit 25 years ago Hx Tobacco Use: No Hx Smoking Exposure: No - Alcohol Use Alcohol Usage: No - Substance Abuse Hx Substance Use: No - Occupation Occupation (List type of work in comments):: Retired - Hobbies, Recreation, Social Activities Hobbies: Woodworking, Other - restoring old cars and equipment Recreational Activities: I am able to engage in all my recreational activities Social Environment - Status Marital Status: - Current Living Arrangements Living Environment:: Spouse - Children How many children do you have?: 2 Do any of your children live nearby?: Yes - Safety Do you feel safe in your surroundings?: Yes - Assistance Do you need any assistance at home?: no Review of Systems - Review of Systems Hints: Right click = Denies (Slash). Left click = Reports ([place]) Review of Present Symptoms: Reports: Shortness of Breath with Exertion, Angina - some, but none like that brought him in, Dizziness/Lightheadedness - occas, but does have benign positional vertigo, Fatigue - some since surg, Appetite - Normal, Appetite - Special Diet - cardiac diet, Sleep - Normal. Denies: Shortness of Breath at Rest, PVD, Operative Discomfort, Wound Healing, Heart Arrhythmia/Irregularities, Sexual Changes - Pain Is Patient Pain Free?: Yes Risk Factor Assessment - Chief Complaint Chief Complaint: cardiac rehab post stent - Pulse Pulse Rate: 71 Pulse Rhythm: Irregular - slightly irregular - Hypertension Blood Pressure Sitting - Right Arm: 124/62 Blood Pressure Sitting - Left Arm: 120/58 - Stress Stress: Recent - anxiety over this - Diabetes Nutrition Referral for Diabetes: Yes - Obesity Height: 5 ft 11 in Weight:: 204 lb Weight in Pounds: 204.0 lbs Body Mass Index (BMI): 28.4 Realistic Weight Goal (Loss of 1-2 lbs/week): 190 Nutritional Referral for Obesity: Yes - Physical Inactivity Physical Inactivity: Reg Exercise 30 min/day - For Smoking Smoking Risk Guidelines: Smoking Low Risk: None or quit greater than 6 months ago. Smoking Moderate Risk: Smoker or quit 6 months or less ago. Smoking High Risk: Smoker - For Dyslipidemia Dyslipidemia Risk Guidelines: Low Risk: Moderate Risk: High Risk: 15-25% fat 25.1-29% fat >/= 30% fat. <7% sat fat 7-9% sat fat >9% sat fat. <150 mg chol 150-299 mg chol >/= 300 mg chol. LDL <100 LDL 100-129 LDL >/= 130. Chol/HDL ratio <5.0 Chol/HDL ratio 5.0-6.0 Chol/HDL ratio >6.0. Triglycerides <100 Triglycerides 100-149 Triglycerides >/= 150 - For Diabetes Mellitus Diabetes Risk Guidelines: Diabetes Low Risk: HgA1c <6.5% and/or FBG <120. Diabetes Moderate Risk: HgA1c 6.6-7.9% and/or FBG 120-180. Diabetes High Risk: HgA1c >/= 8% and/or FBG >180 - For Obesity/Overweight Obesity/Overweight Risk Guidelines: Obesity Low Risk: BMI <25.0. Obesity Moderate Risk: BMI 25-29.9. Obesity High Risk: BMI >/= 30.0 - For Hypertension Hypertension Risk Guidelines: Hypertension Low Risk: Systolic <120 and Diastolic <80. Hypertension Moderate Risk: Systolic 120-139 and Diastolic 80-89. Hypertension High Risk: Systolic >/= 140 and Diastolic >/= 90 - For Sedentary Lifestyle Sedentary Lifestyle Risk Guidelines: Sedentary Lifestyle Low Risk: >/= 1,500 kcal/week. Sedentary Lifestyle Moderate Risk: 700-1,499 kcal/week. Sedentary Lifestyle High Risk: < 700 kcal/week - For Depression Depression Risk Guidelines: Depression Low Risk: Not clinically depressed. Depression Moderate Risk: Mildly depressed. Depression High Risk: Clinically depressed - Family History Family History: Family History (Last Reviewed 09/20/18 @ 14:32 by Ren Mayen DO) Father CAD (coronary artery disease) Mother CAD (coronary artery disease) Colon cancer Brother Lung cancer Sister Alzheimer's disease Brother Lymphoma Motivation - Motivation to Participate On a scale of 1 to 10, how prepared are you to commit to attending program?: 6
--- NOTE | 2018-10-11 08:47 | CR.HP_ITS ---
CR - History & Physical - General Arrival date:: 10/11/18 Arrival time:: 08:43 Date of Referral:: 10/11/18 Date of CR Evaluation:: 10/11/18 Referring Physician: Dr. Belen Calderon Primary Diagnosis: PCI - History of Present Cardiac Event Onset Date: Enter Onset Date of cardiac illnesses in Comment field below Current stable Angina Pectoris:: No Acute Myocardial Infarction within 12 months:: No Coronary Artery Bypass Graft:: No Heart valve replacement or repair:: No PTCA or coronary stenting:: Yes - 09/20/18 Heart or Heart-Lung Transplant:: No Heart Failure EF <35%:: No Type of Symptoms:: Chest pain, SOB, dizziness Interventions with present event:: PCI Were there any complications?: no - Medications Home Medications: Ambulatory Orders Medication Instructions Recorded aspirin 81 mg tablet,delayed 81 mg PO DAILY 09/18/18 release nitroglycerin 0.4 mg sublingual 0.4 mg SUBLINGUAL Q5-15M PRN #25 09/18/18 tablet tab Ticagrelor [Brilinta] 90 mg PO BID #60 tab 09/21/18 atorvastatin 20 mg tablet 20 mg PO DAILY #30 tab 09/21/18 ranitidine 150 mg tablet 150 mg PO QHS #30 tab 09/21/18 - Allergies Allergies/Adverse Reactions: Allergies No Known Allergies Allergy (Verified 09/20/18 08:47) - Sleep Disorder Evaluation Hx of Sleep Apnea: No Do you snore loudly (louder than talking or can be heard through closed doors)?: Yes Do you often feel tired/ fatigued/ sleepy during daytime?: No Has anyone observed you stop breathing during sleep?: Yes History of Hypertension (for STOP score): No STOP Results: Positive Advanced Directives - Advanced Directives Power of Chain Builder Loom Control: Yes Living Will: Yes Advance Directives Information Provided: Yes Advance Directives on File: No DNR Order?:: No - MOLST See MOLST form: No Past Medical History - Past Medical Illness Medical History: Past Medical History (Last Updated 09/20/18 @ 15:44 by Jojo Ruiz) Atherosclerotic heart disease of [place] coronary artery without angina pectoris (Chronic) I25.10 CANDY to mid Diag 1 (2.5 X 12 Promus Synergy) per Dr. Calderon @ [facility] Benign positional vertigo (Chronic) H81.10 Hyperlipidemia (Chronic) E78.5 Hypertension (Chronic) I10 CAD (coronary artery disease) I25.10 - Past Surgical History Surgical History: Past Surgical History (Last Updated 09/20/18 @ 15:44 by Jojo Ruiz) History of left heart catheterization (Chronic) Onset Date: 09/20/18 Z98.890 Stented coronary artery (Chronic) Onset Date: 09/20/18 Z95.5 CANDY to mid Diag 1 (2.5 X 12 Promus Synergy) per Dr. Calderon @ [facility] Surgical History: herniorrhaphy, - - both shoulders. both carpal tunnels. Back surgery. - Family History Summary Family History: Family History (Last Reviewed 09/20/18 @ 14:32 by Ren Mayen DO) Father CAD (coronary artery disease) Mother CAD (coronary artery disease) Colon cancer Brother Lung cancer Sister Alzheimer's disease Brother Lymphoma Social History - Smoking History Smoking Status: Former smoker Years Smokin Packs Smoked per Day: 2 Hx Smoking Cessation Date: quit 25 years ago Hx Tobacco Use: No Hx Smoking Exposure: No - Alcohol Use Alcohol Usage: No - Substance Abuse Hx Substance Use: No - Occupation Occupation (List type of work in comments):: Retired - Hobbies, Recreation, Social Activities Hobbies: Woodworking, Other - restoring old cars and equipment Recreational Activities: I am able to engage in all my recreational activities Social Environment - Status Marital Status: - Current Living Arrangements Living Environment:: Spouse - Children How many children do you have?: 2 Do any of your children live nearby?: Yes - Safety Do you feel safe in your surroundings?: Yes - Assistance Do you need any assistance at home?: no Review of Systems - Review of Systems Hints: Right click = Denies (Slash). Left click = Reports ([place]) Review of Present Symptoms: Reports: Shortness of Breath with Exertion, Angina - some, but none like that brought him in, Dizziness/Lightheadedness - occas, but does have benign positional vertigo, Fatigue - some since surg, Appetite - Normal, Appetite - Special Diet - cardiac diet, Sleep - Normal. Denies: Shortness of Breath at Rest, PVD, Operative Discomfort, Wound Healing, Heart Arrhythmia/Irregularities, Sexual Changes - Pain Is Patient Pain Free?: Yes Risk Factor Assessment - Chief Complaint Chief Complaint: cardiac rehab post stent - Pulse Pulse Rate: 71 Pulse Rhythm: Irregular - slightly irregular - Hypertension Blood Pressure Sitting - Right Arm: 124/62 Blood Pressure Sitting - Left Arm: 120/58 - Stress Stress: Recent - anxiety over this - Diabetes Nutrition Referral for Diabetes: Yes - Obesity Height: 5 ft 11 in Weight:: 204 lb Weight in Pounds: 204.0 lbs Body Mass Index (BMI): 28.4 Realistic Weight Goal (Loss of 1-2 lbs/week): 190 Nutritional Referral for Obesity: Yes - Physical Inactivity Physical Inactivity: Reg Exercise 30 min/day - For Smoking Smoking Risk Guidelines: Smoking Low Risk: None or quit greater than 6 months ago. Smoking Moderate Risk: Smoker or quit 6 months or less ago. Smoking High Risk: Smoker - For Dyslipidemia Dyslipidemia Risk Guidelines: Low Risk: Moderate Risk: High Risk: 15-25% fat 25.1-29% fat >/= 30% fat. <7% sat fat 7-9% sat fat >9% sat fat. <150 mg chol 150-299 mg chol >/= 300 mg chol. LDL <100 LDL 100-129 LDL >/= 130. Chol/HDL ratio <5.0 Chol/HDL ratio 5.0-6.0 Chol/HDL ratio >6.0. Triglycerides <100 Triglycerides 100- 149 Triglycerides >/= 150 - For Diabetes Mellitus Diabetes Risk Guidelines: Diabetes Low Risk: HgA1c <6.5% and/or FBG <120. Diabetes Moderate Risk: HgA1c 6.6-7.9% and/or FBG 120-180. Diabetes High Risk: HgA1c >/= 8% and/or FBG >180 - For Obesity/Overweight Obesity/Overweight Risk Guidelines: Obesity Low Risk: BMI <25.0. Obesity Moderate Risk: BMI 25-29.9. Obesity High Risk: BMI >/= 30.0 - For Hypertension Hypertension Risk Guidelines: Hypertension Low Risk: Systolic <120 and Diastolic <80. Hypertension Moderate Risk: Systolic 120-139 and D iastolic 80-89. Hypertension High Risk: Systolic >/= 140 and Diastolic >/= 90 - For Sedentary Lifestyle Sedentary Lifestyle Risk Guidelines: Sedentary Lifestyle Low Risk: >/= 1,500 kcal/week. Sedentary Lifestyle Moderate Risk: 700-1,499 kcal/week. Sedentary Lifestyle High Risk: < 700 kcal/week - For Depression Depression Risk Guidelines: Depression Low Risk: Not clinically depressed. Depression Moderate Risk: Mildly depressed. Depression High Risk: Clinically depressed - Family History Family History: Family History (Last Reviewed 09/20/18 @ 14:32 by Ren Mayen DO) Father CAD (coronary artery disease) Mother CAD (coronary artery disease) Colon cancer Brother Lung cancer Sister Alzheimer's disease Brother Lymphoma Motivation - Motivation to Participate On a scale of 1 to 10, how prepared are you to commit to attending program?: 6
[2018-10-11 09:10] VITALS: BP 120/58; BP 124/62; PULSE 71; BMI 28.4
--- NOTE | 2018-10-11 11:28 | CR.ITP_ITS ---
General Information - General Information Admitting Diagnosis: PCI - Education/Goals Barriers to Learning: None Individual Counseling: Initial Assessment: Abnormal Cholesterol Levels, High Blood Pressure, Overweight/Obesity, Family History of Heart Disease (under 65 years) Cardiac Rehabilitation Goals: 1. Maintain the individual as the primary focus of care. 2. To improve the patient's quality of life. 3. Identification of car diac risk factors and provide cardiac risk factor management. 4. Enhance the psychosocial status of the patient. 5. Reconditioning enough to allow the patient to resume customary activities. 6. Control symptoms of cardiac disease Scale for measuring improvement of personal goals: Enter appropriate number in Comments. 2 = Unchanged. 3 = Slightly Better. 4 = Moderate Improvement. 5 = Met my Goal Personal Goals: Initial Assessment: Improve management of stress and emotions, Improve energy level, Get back to work, or to resume activities faster, Improve knowledge of cardiac disease, Improve diet and eating habits (eat healthier), Control risk factors (learn risk factor modification) Exercise - Initial Assessment - Visit Date of Eval: 10/11/18 - Stages of Change Stages of Change:: Action - Exercise Prescription Mode:: Treadmill, Biodyne, Rower, Airdyne, NuStep - Hypertension Do any of the following apply?: No - Intervention Home Exercise/Activity Goal:: Moderate Exercise 30 min/day x 5 days/wk - Education Goals:: Warm-up, RPE BAO Scale, S/S, Safe Exercise, Self-Monitoring - Exercise Program Goals Exercise Program Goals: Aerobic Activity >30 min Nutrition - Initial Assessment - Program Goals Nutrition Program Goals: LDL <70. Total Cholesterol <200. HDL >45. Triglycerides <150. HgbA1C <7%. BMI <25 - Visit Date of Assessment:: 10/11/18 - Stages of Change Stages of Change:: Action - Diabetes Diabetes:: No - Weight Management Weight:: 204 lb Body Fat %:: 29.2 Goal % Body Fat:: 24 - Intervention Referral to dietitian:: Yes Referral to Diabetic Clinic:: No Will attend diet classes:: Yes - Education Gave educational materials for:: Relate diabetes to coronary artery disease, Healthy eating Tobacco - Initial Assessment - Program Goals Tobacco Program Goals: Complete smoking cessation. Attend education classes. Improve Knowledge Test score - Stage of Change Stages of Change:: Action - Learning Barriers Learning Barriers: Ready to Learn Total Score:: 11 - Family Support Do you have family support?: Yes - Tobacco Use Tobacco Use: Non-smoker How long ago did you quit using tobacco products?: Greater than or equal to 6 months ago Do you use smokeless tobacco?: No - Intervention Smoking Cessation Referral:: No Individual Education/Counseling:: No Education Schedule Given:: Yes - Education Gave educational material for:: Coronary artery disease, Risk factors, Sexuality, Medical compliance, Cardiac A&P, Angina signs & symptoms Psychosocial - Initial Assess - Target Goals Target Goals: Assess presence or absence of depression. Using a valid screening tool, maximizes coping skills. Positive support system - Stages of Change Stages of Change:: Maintenance - Psychosocial Test Tool Used:: HANDS Depression Questionnaire Total Mood Screening Score:: 3 Self-Efficacy Score:: 9 - Intervention PS - Interventions: Yes Attend Stress Management Classes, Yes Uses Stress Management Skills, No Referral to Mental Health, No Referral to [facility] Case Management, No Referral to Physician - Education Gave educational materials for:: Coping techniques, Signs & symptoms of depression, Stress management, Relaxation techniques - Patient/Program Goal Preventative Medication(s):: Aspirin, SWATI inhibitor, Clopidogrel, Beta kana, Statin/lipid - Assistive Devices Assistive Devices:: None Fall Risk Assessed:: Yes Patient Health Questionnaire Initial Assessment 1. Little interest or pleasure in doing things: Several days 2. Feeling down, depressed, or hopeless: Not at all 3. Trouble falling or staying asleep, or sleeping too much: Several days 5. Poor appetite or overeating: Several days 6. Feeling bad about yourself -- or that you are a failure or have let yourself or your family down: Not at all 7. Trouble concentrating on things, such as reading the newspaper or watching television: Not at all 8. Moving or speaking so slowly that other people could have noticed. Or the opposite - being so fidgety or restless that you have been moving around a lot more than usual: Not at all 9. Thoughts that you would be better off , or of hurting yourself in some way: Not at all How difficult have these problems made it for you to do your work, take care of things at home, or get along with other people?: Not difficult at all Total Score: 3 OLI-Q SV Test - Statements CAD is a disease of the arteries in the heart: True Examples of risk factors for heart disease: True Angina is chest pain or discomfort: True The benefits of resistance training include: I Don't Know Eating more meat and dairy products: I Don't Know Anti-platelet medications such as aspirin are important: True The only effective way to manage stress: False An exercise warm-up slowly increases heart rate: True Prepared, processed foods usually have high sodium: I Don't Know Depression is common after a heart attack: I Don't Know The statin medications lower cholesterol: I Don't Know To control blood pressure, lower the amount of sodium: I Don't Know If someone gets chest discomfort during walking: False Transfats are partially hydrogenated vegetable oils: I Don't Know Sleep apnea that is not treated increases the risk: I Don't Know To control cholesterol, one should become a vegetarian: False Someone knows if he/she is exercising at the right level: True Diabetes cannot be prevented with exercise & health eating: False Stress is a large risk for heart attack: True A diet that can help lower blood pressure is rich in: True - Total Score Total Correct Responses: 11 Self-Efficacy Initial Assessment We would like to know how confident you are in doing certain activities. Please select your confidence level for:: Select your confidence level for the following using the scale 1-10 where 1 is not at all confident and 10 is totally confident. Your score is the average of all 6 responses. Fatigue: How confident are you that you can keep the fatigue caused by your disease from interfering with the things you want to do? Select Number: 8 Physical Discomfort or Pain: How confident are you that you can keep the physical discomfort or pain of your disease from interfering with the things you want to do? Select Number: 8 Emotional Distress: How confident are you that you can keep the emotional distress caused by your disease from interfering with the things you want to do? Select Number: 10 Other Symptoms or Health Problems: How confident are you that you can keep other symptoms or health problems from interfering with the things you want to do? Select Number: 10 Different Tasks and Activities: How confident are you that you can do the different tasks and activities needed to manage your health condition so as to reduce your need to see a doctor? Select Number: 10 Medication: How confident are you that you can do things other than just taking medication to reduce how much your illness affects your everyday life? Select Number: 10 Total Score:: 9 Nutrition Survey - Nutrition Survey Instructions Scoring Instructions: Scoring is as follows: Yes = 1 points. No = 0 point. Patient score that is >/=12 is considered to be at potential nutritional risk and could benefit from a referral to a registered dietitian. - Nutrition Survey Initial Have you lost >10 lbs over the past 2 months without trying?: No Are you following a special diet at home for diabetes, low fat, or low salt?: No Are you interested in meeting with a dietitian for help understanding your diet?: No Do you eat less than 3 meals a day?: No Do you eat fatty meats (guerra, sausage, ribs, etc), fried foods, desserts, large amounts of salad dressings, margarine, butter, or cheese most days?: Yes Do you have food allergies? [Enter types in comment field]: No Do you eat in restaurants more than 3 times a week?: Yes Do you season food with salt, seasoning salt, or garlic salt?: Yes Do you used canned, boxed, frozen meals, or soups, seasoning packets?: Yes Total Score:: 4
== END ==
PROVIDERS: Referring Provider Internal Medicine Cardiovascular Disease; Visit Provider Internal Medicine Cardiovascular Disease
DX: Z95.5 Presence of coronary angioplasty implant and graft (principal)

== ENCOUNTER → 2018-10-29 23:41 | Outpatient (CLI) | payer MEDICARE, SELFPAY ==
[2018-09-21 09:18] VITALS: BMI 29.2
[2018-10-16 14:25] VITALS: BMI 29.1
== END ==
PROVIDERS: Visit Provider Internal Medicine Cardiovascular Disease
DX: G47.10 Hypersomnia, unspecified (principal)
CPT/HCPCS: 95810

== ENCOUNTER → 2018-11-26 12:43 | Outpatient (CLI) | payer MEDICARE, OTHER, SELFPAY ==
[2018-09-21 09:18] VITALS: BMI 29.2
[2018-10-16 14:25] VITALS: BMI 29.1
--- NOTE | 2018-11-26 15:01 | PFTCOMP_ITS ---
COMPLETE PULMONARY FUNCTION TEST INTERPRETATION Brief HPI: Patient is a 73 year old male, currently under the care of Dr. Calderon, who presents to [facility] for complete pulmonary function tests secondary to diagnosis of dyspnea. Respiratory therapist reports good effort and reproducible results. Interpretation: Forced expiration spirometry shows no large airways obstructive ventilatory defect with an FEV1 of 94% predicted. There is no significant bronchodilator response by strict ATS criteria. Spirograms are of good quality and plateau slowly, indicating slowly emptying areas of the lungs. The respiratory flow volume loop shows decreased expiratory flow rates at high lung volumes consistent with small airways obstruction. Lung volumes by body plethysmography show a decreased total lung capacity at 5.54 L, 82% predicted. All other lung volumes are reduced symmetrically. Diffusion capacity by carbon monoxide is normal at 98% predicted. The airway resistance is normal. No previous pulmonary function tests were available for review. Impression: Mild restrictive ventilatory defect with preserved diffusion capacity consistent with musculoskeletal limitation.
== END ==
PROVIDERS: Referring Provider Internal Medicine Cardiovascular Disease; Visit Provider Internal Medicine Cardiovascular Disease
DX: E78.5 Hyperlipidemia, unspecified (principal); I25.10 Atherosclerotic heart disease of native coronary artery without angina pectoris
CPT/HCPCS: 93798; 94060; 94726; 94729

== ENCOUNTER 2018-12-03 11:30 | Outpatient (RCR) | payer MEDICARE, SELFPAY ==
[2018-09-21 09:18] VITALS: BMI 29.2
[2018-10-11 09:10] VITALS: BMI 28.4
[2018-10-16 14:25] VITALS: BMI 29.1
--- NOTE | 2018-11-12 09:03 | PCM.CR.ITP ---
General Information - General Information Admitting Diagnosis: PCI - Education/Goals Cardiac Rehabilitation Goals: 1. Maintain the individual as the primary focus of care. 2. To improve the patient's quality of life. 3. Identification of cardiac risk factors and provide cardiac risk factor management. 4. Enhance the psychosocial status of the patient. 5. Reconditioning enough to allow the patient to resume customary activities. 6. Control symptoms of cardiac disease Scale for measuring improvement of personal goals: Enter appropriate number in Comments. 2 = Unchanged. 3 = Slightly Better. 4 = Moderate Improvement. 5 = Met my Goal Exercise - Initial Assessment - Visit Date of Eval: 11/12/18 - Pt starts 11/26/2018 Session #:: 0
== END 2018-12-06 23:59 ==
LOC: CR 11:30
PROVIDERS: Referring Provider Internal Medicine Cardiovascular Disease; Visit Provider Internal Medicine Cardiovascular Disease
DX: I25.10 Atherosclerotic heart disease of native coronary artery without angina pectoris (principal); Z95.5 Presence of coronary angioplasty implant and graft
CPT/HCPCS: 93798

== ENCOUNTER → 2018-12-12 22:29 | Outpatient (CLI) | payer MEDICARE, OTHER, SELFPAY ==
[2018-09-21 09:18] VITALS: BMI 29.2
[2018-11-28 13:30] VITALS: BMI 29.1
== END ==
PROVIDERS: Referring Provider Nurse Practitioner Acute Care; Visit Provider Nurse Practitioner Acute Care
DX: G47.33 Obstructive sleep apnea (adult) (pediatric) (principal)
CPT/HCPCS: 93798; 95811

== ENCOUNTER 2019-01-04 11:30 | Outpatient (RCR) | payer MEDICARE, OTHER, SELFPAY ==
[2018-09-21 09:18] VITALS: BMI 29.2
[2018-11-28 13:30] VITALS: BMI 29.1
--- NOTE | 2018-12-10 09:41 | CR.ITP_ITS ---
Exercise - 30-day Assessment - Visit Date of Eval: 12/10/18 Session #:: 4 - Patient officially started CR 11/26/18 and has missed two recent sessions due to a cold. - Stages of Change Stages of Change:: Action - Physician Prescribed Exercise Modalities: Treadmill, Rower, Airdyne Frequency (days/week): 3 Duration (Minutes):: 30-45 Intensity: 60-80% age predicted maximum heart rate reserve METs - Progression: 0.5-1.0 MET, RPE 11-14 WEEK: 2.5 Target Heart Rate:: 104-112 w max HR 119 - Hypertension Resting Blood Pressure:: 118/68 Peak Exercise Blood Pressure:: 140/70 Medication Changes:: No - Intervention Home Exercise/Activity Goal:: Sitting Time <3 hrs/day - Education Goals:: Warm-up, RPE BAO Scale, S/S, Safe Exercise, Self-Monitoring - Exercise Program Goals Exercise Program Goals: Aerobic Activity >30 min Nutrition - 30-Day Assessment - Program Goals Nutrition Program Goals: LDL <70. Total Cholesterol <200. HDL >45. Triglycerides <150. HgbA1C <7%. BMI <25 - Visit Date of Eval: 12/10/18 - Stages of Change Stages of Change:: Action - Lipids Has the patient seen the dietitian?: No - Diabetes Diabetes:: No - Weight Management Weight:: 209 lb 8 oz - Intervention Referral to dietitian:: No Referral to Diabetic Clinic:: No Will attend diet classes:: Yes - Education Attended class for:: Healthy eating Tobacco - Initial Assessment - Program Goals Tobacco Program Goals: Complete smoking cessation. Attend education classes. Improve Knowledge Test score - Learning Barriers Learning Barriers: Ready to Learn Tobacco - 30-Day Assessment - Program Goals Tobacco Program Goals: Complete smoking cessation. Attend education classes. Improve Knowledge Test score - Stage of Change Stages of Change:: Action - Learning Barriers Learning Barriers: Participates in education - Family Support Do you have family support?: Yes - Tobacco Use Tobacco Use: Non-smoker Do you use smokeless tobacco?: No - Intervention Smoking Cessation Referral:: No Individual Education/Counseling:: No Education Schedule Given:: Yes - Education Attended class for:: Coronary artery disease, Risk factors, Sexuality, Medical compliance, Cardiac A&P, Angina signs & symptoms Psychosocial - Initial Assess - Target Goals Target Goals: Assess presence or absence of depression. Using a valid screening tool, maximizes coping skills. Positive support system - Psychosocial Test Tool Used:: HANDS Depression Questionnaire - Assistive Devices Fall Risk Assessed:: Yes Psychosocial - 30-Day Assess - Target Goals Target Goals: Assess presence or absence of depression. Using a valid screening tool, maximizes coping skills. Positive support system - Stages of Change Stages of Change:: Action - Psychosocial Test Tool Used:: HANDS Depression Questionnaire - Intervention PS - Interventions: Yes Attend Stress Management Classes, No Referral to Mental Health, No Referral to [facility] Case Management, No Referral to Physician, No Uses Stress Management Skills - Education Attended classes for:: Coping techniques, Signs & symptoms of depression, Stress management, Relaxation techniques - Patient/Program Goal Preventative Medication(s):: Aspirin, Clopidogrel, Beta kana, Statin/lipid - Assistive Devices Assistive Devices:: None Patient Health Questionnaire 30-Day Re-eval Assessment 1. Little interest or pleasure in doing things: Not at all 2. Feeling down, depressed, or hopeless: Not at all 3. Trouble falling or staying asleep, or sleeping too much: Several days 4. Feeling tired or having little energy: Not at all 5. Poor appetite or overeating: Several days 6. Feeling bad about yourself -- or that you are a failure or have let yourself or your family down: Not at all 7. Trouble concentrating on things, such as reading the newspaper or watching television: Not at all 8. Moving or speaking so slowly that other people could have noticed. Or the opposite - being so fidgety or restless that you have been moving around a lot more than usual: Not at all 9. Thoughts that you would be better off , or of hurting yourself in some way: Not at all How difficult have these problems made it for you to do your work, take care of things at home, or get along with other people?: Not difficult at all Total Score: 2 Self-Efficacy 30-Day Re-eval Assessment We would like to know how confident you are in doing certain activities. Please select your confidence level for:: Select your confidence level for the following using the scale 1-10 where 1 is not at all confident and 10 is totally confident. Your score is the average of all 6 responses. Fatigue: How confident are you that you can keep the fatigue caused by your disease from interfering with the things you want to do? Select Number: 8 Physical Discomfort or Pain: How confident are you that you can keep the physical discomfort or pain of your disease from interfering with the things you want to do? Select Number: 9 Emotional Distress: How confident are you that you can keep the emotional distress caused by your disease from interfering with the things you want to do? Select Number: 10 Other Symptoms or Health Problems: How confident are you that you can keep other symptoms or health problems from interfering with the things you want to do? Select Number: 10 Different Tasks and Activities: How confident are you that you can do the different tasks and activities needed to manage your health condition so as to reduce your need to see a doctor? Select Number: 10 Medication: How confident are you that you can do things other than just taking medication to reduce how much your illness affects your everyday life? Select Number: 10 Total Score:: 9
[2018-12-10 09:42] VITALS: BP 118/68; BP 140/70
== END 2019-01-06 23:59 ==
LOC: CR 11:30
PROVIDERS: Referring Provider Internal Medicine Cardiovascular Disease; Visit Provider Internal Medicine Cardiovascular Disease
DX: I25.10 Atherosclerotic heart disease of native coronary artery without angina pectoris (principal); Z95.5 Presence of coronary angioplasty implant and graft
CPT/HCPCS: 93798

== ENCOUNTER → 2019-05-31 08:23 | Outpatient (CLI) | payer MEDICARE, OTHER, SELFPAY ==
[2018-09-21 09:18] VITALS: BMI 29.2
[2019-04-16 13:57] VITALS: BMI 27.7
[2019-05-31 10:27] LABS: AST(SGOT) 18 U/L (15-37); Alanine Aminotransfer ALT/SGPT 27 U/L (16-61); Albumin, Serum 3.5 g/dL (3.2-5.0); Alkaline Phosphatase 58 U/L (45-117); Bilirubin, Direct 0.12 mg/dL (0.00-0.30); Cholesterol 126 mg/dL (200); Globulin 3.3 g/dL (2.2-4.2); High Density Lipoprotein 35 mg/dL; Protein, Total 6.8 g/dL (6.4-8.2); Triglycerides 76 mg/dL; Very Low Density Lipoprotein 15 mg/dL (5-40)
== END ==
PROVIDERS: Referring Provider Internal Medicine Cardiovascular Disease; Visit Provider Internal Medicine Cardiovascular Disease
DX: E78.5 Hyperlipidemia, unspecified (principal); I25.10 Atherosclerotic heart disease of native coronary artery without angina pectoris
CPT/HCPCS: 36415; 80061; 80076

== ENCOUNTER → 2019-08-22 11:47 | Outpatient (CLI) | payer MEDICARE, OTHER, SELFPAY ==
[2018-09-21 09:18] VITALS: BMI 29.2
[2019-08-05 13:53] VITALS: BMI 28.5
--- NOTE | 2019-08-22 11:50 | ECHOD_ITS ---
Reason For Study: CHEST PAIN Procedure This was a 2D Doppler, Color Flow transthoracic echocardiogram. Exam performed in department. Left Ventricle Normal size and thickness. The estimated ejection fraction is 65 %. Stage 1 diastolic dysfunction. No regional wall motion abnormalities noted. Right Ventricle Normal size and thickness. Normal systolic function. Atria Normal left atrium. Normal right atrium. Normal atrial septum. Mitral Valve The mitral valve is structurally normal. No prolapse or stenosis seen. Mild (1+) posteriorly directed mitral valve insufficiency. Tricuspid Valve Normal tricuspid valve. Trivial tricuspid valve insufficiency. Right ventricular systolic pressure estimated to be 26 mmHg. Aortic Valve Normal aortic valve. Trisinus/trileaflet aortic valve. Pulmonic Valve Normal pulmonic valve. Great Vessels Normal aortic root. Normal arch. Normal inferior vena cava. Inferior vena cava collapse with sniff. Pericardium/Pleural No pericardial effusion. MMode/2D Measurements & Calculations LVIDd: 4.2 cm IVSd: 0.97 cm Ao root diam: 3.7 cm LVIDs: 2.5 cm LVPWd: 0.95 cm RVDd: 3.4 cm FS: 39.7 % LAV(MOD-bp): 49.3 ml EDV(MOD-sp4): 105.8 ml EDV(MOD-sp2): 86.7 ml LAV(MOD-bp) Indexed: 23.5 ml/m2 ESV(MOD-sp4): 36.6 ml EF(MOD-sp2): 64.0 % LAV(MOD-sp2): 48.7 ml EF(MOD-sp4): 65.4 % LAV(MOD-sp4): 48.4 ml SV(MOD-sp4): 69.2 ml SV(MOD-sp2): 55.5 ml LA A4 area: 18.5 cm2 LA dimension(2D): 4.1 cm RA A4 area: 14.6 cm2 Time Measurements MV dec time: 0.31 sec Doppler Measurements & Calculations MV E max justin: 62.3 cm/sec Lat Peak E' Justin: 7.8 cm/sec Med Peak E' Justin: 6.6 cm/sec MV A max justin: 85.0 cm/sec E/E' lat: 8.0 E/E' med: 9.4 MV E/A: 0.73 Ao V2 max: 126.5 cm/sec LV V1 max: 103.2 cm/sec TR max justin: 232.0 cm/sec Ao max P.4 mmHg LV V1 max P.3 mmHg TR max P.6 mmHg Interpretation Summary The estimated ejection fraction is 65 %. Stage 1 diastolic dysfunction. Trivial tricuspid valve insufficiency. Right ventricular systolic pressure estimated to be 26 mmHg. Compared to echo report dated 09/20/2018, LV function has remained the same, and RVSP has increased from 13 to 26 mm Hg, but still w/in normal limits. Ordering Physician: Norris Calderon Referring Physician: CLOTILDE FIGUEROA Performed By: Amira Castrejon, ROSA MARIA, RVT
== END ==
PROVIDERS: Family Provider Internal Medicine; PCP Internal Medicine; Referring Provider Internal Medicine Cardiovascular Disease; Visit Provider Internal Medicine Cardiovascular Disease
DX: R07.9 Chest pain, unspecified (principal); I25.10 Atherosclerotic heart disease of native coronary artery without angina pectoris; Z95.5 Presence of coronary angioplasty implant and graft
CPT/HCPCS: 93306

== ENCOUNTER → 2019-09-04 10:04 | Outpatient (CLI) | payer MEDICARE, OTHER, SELFPAY ==
[2018-09-21 09:18] VITALS: BMI 29.2
[2019-08-05 13:53] VITALS: BMI 28.5
[2019-08-26 07:20] VITALS: BMI 27.6
--- NOTE | 2019-09-04 10:07 | STEWCON_ITS ---
Reason For Study: chest pain Stress Results Protocol: Devang Protocol WITH DEFINITY Maximum Predicted HR: 148 bpm Target HR: 126 bpm % Maximum Predicted HR: 88 % DurationHeart Rate Stage (mm:ss) (bpm) BP Comment baseline 56 108/663 ml definity given stage 1 3:00 88 112/68 stage 2 3:00 100 118/68 stage 3 1:46 130 / mild shortness of breath, no chest pain, 2 ml definity given recovery 61 118/66 Stress Duration: 7:46 mm:ss Maximum Stress HR: 130 bpm Baseline Echocardiogram Findings The estimated ejection fraction is 65 %. Stress Echo Wall motion Data Resting WM Intermediate WM Stress WM Resting Wall Motion Wall Motion Stress No regional wall motion No regional wall motion abnormalities noted. abnormalities noted. EKG Data The baseline ECG displays normal sinus rhythm. The patient exercised according to the regular Devang protocol for a total duration of 7:46. The maximum heart rate attained was 133 beats per minute. This was 89% of maximum predicted heart rate. The patient exercised into stage 3 of the Devang protocol. During stress, there were no ST or T wave changes noted to suggest ischemia. No clinical angina was noted. Interpretation Summary The estimated ejection fraction is 65 %. Normal, adequate, treadmill echocardiogram. Negative for ischemia by EKG and echocardiographic criteria. No anginal symptoms noted. Rare PAC and PVCs noted. Appropriate blood pressure response to exercise. Average exercise capacity for age. Test terminated due to attainment target heart rate and mild shortness of breath. Final LVEF is 75%. Decreased sensitivity due to poor echo windows requiring Definity agent. Patient tolerated the procedure well. No complications. The study was technically difficult. Contrast injection was performed. Ordering Physician: Norris Calderon Referring Physician: Norris Calderon Performed By: Osmel Barron RCS
== END ==
PROVIDERS: Family Provider Internal Medicine; PCP Internal Medicine; Referring Provider Internal Medicine Cardiovascular Disease; Visit Provider Internal Medicine Cardiovascular Disease
DX: R07.9 Chest pain, unspecified (principal); I25.10 Atherosclerotic heart disease of native coronary artery without angina pectoris; Z95.5 Presence of coronary angioplasty implant and graft
CPT/HCPCS: 93017; 93350; Q9957; A4216; C8928

== ENCOUNTER → 2019-09-13 20:09 | Outpatient (CLI) | payer MEDICARE, OTHER, SELFPAY ==
[2018-09-21 09:18] VITALS: BMI 29.2
[2019-08-26 07:20] VITALS: BMI 27.6
== END ==
PROVIDERS: Family Provider Internal Medicine; PCP Internal Medicine; Referring Provider Nurse Practitioner Acute Care; Visit Provider Nurse Practitioner Acute Care
DX: G47.33 Obstructive sleep apnea (adult) (pediatric) (principal)
CPT/HCPCS: 95811

== ENCOUNTER 2020-02-11 05:58 | Day surgery (SDC) | payer MEDICARE, OTHER, SELFPAY ==
[2018-09-21 09:18] VITALS: BMI 29.2
[2020-02-07 10:56] VITALS: BMI 28.7
--- NOTE | 2020-02-07 12:58 | RAD_ITS ---
STUDY: X-RAY CHEST REASON FOR EXAM: Male, 75 years old. Pre heart cath -- chest pain TECHNIQUE: PA and lateral views of the chest. COMPARISON: Comparison is made with prior study dated September 20, 2018. FINDINGS: Hyperinflation. Scattered calcified granulomas. Stable mild degree of scarring at the lung bases. No acute abnormality is seen. There is no demonstrated pleural abnormality. Normal size heart. Normal mediastinum and claire. Normal visualized pulmonary arteries. Normal visualized aortic arch and descending thoracic aorta. There are degenerative changes of the visualized thoracic spine. Prior right rotator cuff surgery. There is no demonstrated abnormality of the visualized soft tissue structures of the upper abdomen. RAD/Chest PA and Lateral IMPRESSION: Stable examination. Electronically Signed: Vini Wilburn, at 13:33 EDT , Service support ,
--- NOTE | 2020-02-07 13:00 | EKG12_ITS ---
Test Reason : PREOP Blood Pressure : / mmHG Vent. Rate : 059 BPM Atrial Rate : 059 BPM P-R Int : 156 ms QRS Dur : 074 ms QT Int : 396 ms P-R-T Axes : 055 039 020 degrees QTc Int : 392 ms Sinus bradycardia Otherwise normal ECG No previous ECGs available Confirmed by SATHISH POST, SHAHLA ([id number]), editor dictionary CONSTANTINE SIMPSON ([id number]) on 02/11/2020 11:36:51 AM Referred By: Norris Calderon Confirmed By:SHAHLA BOWER MD
[2020-02-07 14:02] LABS: Hematocrit 43.5 % (40-54); Hemoglobin 13.8 g/dL (13.0-16.5); Mean Corp Hgb Conc 31.7 g/dL (32-36); Mean Corpuscular Hgb 29.7 pg (27.0-32.0); Mean Corpuscular Volume 93.5 fL (80-94); Mean Platelet Vol. 11.1 fl (6.2-12.0); Platelet Count 189 K/mm3 (150-450); RBC Distribution Width CV 13.9 % (11.6-14.6); RBC Distribution Width SD 47.8 fl (35.1-43.9); Red Blood Count 4.65 M/mm3 (4.6-6.2); White Blood Count 6.2 K/mm3 (4.4-11.0)
[2020-02-07 14:13] LABS: Partial Thromboplast Time 26.8 Seconds (24.1-36.2)
[2020-02-07 14:23] LABS: Anion Gap 5 (5-15); BUN 18 mg/dL (7-18); BUN/Creat Ratio 18.3 RATIO (10-20); Calcium,Total 8.6 mg/dL (8.5-10.1); Chloride 106 mmol/L (98-107); Creatinine, Serum 0.98 mg/dL (0.70-1.30); EST Glomerular Filtration Rate 79 mL/min (>60); Est Glom Filt Rate - Afr Amer 96 mL/min (>60); Glucose 91 mg/dL (74-106); Potassium 4.2 mmol/L (3.5-5.1); Sodium Level 138 mmol/L (136-145)
[2020-02-10 09:39] VITALS: BMI 29.0
--- NOTE | 2020-02-11 08:27 | CL.D_ITS ---
Patient Name: MEHRAN FREY Study Date: 02/11/2020 Performing: Norris Calderon MD Ht: 70.86 inches 180 cm : 1945 Wt: 207.23 lbs 94 kg Age: 75 Gender: male BSA: 2.14 PROCEDURE(S) PERFORMED VI50-WQM/COR/LV CLINICAL PROFILE AND INDICATIONS Indications: New Onset Angina <= 2 months, Stable Known CAD Heart Failure: None Stress/Imaging Date: 08/23/2019Stress Echocardiogram: Negative Angina Classification Anginal Classification w/in 2 Weeks: CCS IV CAD Presentations: Symptom unlikely to be ischemic. Comorbidities/Risk Factors: Current/Recent Smoker (< 1year) Hypertension Dyslipidemia Prior PCI CONCLUSIONS Non obstructive coronary arteries Normal LV size, wall motion,and systolic function Normal Left Ventricular systolic function Normal LV size, wall motion,and systolic function Normal coronary arteries LVEF: by LV gram 65 % Elevated Left Ventricular End Diastolic Pressure RECOMMENDATIONS Management as per referring Curriculum Developer Manual sheath removal. DESCRIPTION OF PROCEDURE The patient arrived to the procedure lab. The risks and benefits of the procedure as well as a full d escription of our services here and current unavailability of surgical backup were fully explained to the patient and/or their significant other prior to the catheterization. The Timeout was completed, verifying the correct patient and procedure. The patient's procedural site was prepped and draped in the usual fashion. Local anesthetic was given subcutaneously to right groin region with Lidocaine 2%. Using a modified Seldinger technique, arterial access was obtained via the right femoral artery, a 4 Fr sheath was inserted Left Coronary Artery selective angiography was performed in multiple views us ing a 4 Fr. JL5 catheter. Right Coronary Artery selective angiography was then performed in multiple views using a 4 Fr. 3DRC catheter. Left Ventriculography was performed in BEE projection using a 4 Fr . Pigtail catheter. LV to AO pullback pressures were then recorded.The arterial sheath was pulled and manual compression applied until hemostasis is achieved. CORONARY ANGIOGRAPHY DOMINANCE: Right Dominant LEFT HEART ASSESSMENT Left Ventricular Ejection Fraction: by LV Gram 65 % Normal LV wall motion Normal Left Ventricular systolic function LEFT MAIN: Angiographically normal LEFT ANTERIOR DESCENDING ARTERY: No significant disease noted DIAGONAL 1: Mid - Previously placed stent is patent CIRCUMFLEX ARTERY: Mild luminal irregularities less than 30% RAMUS: Angiographically normal RIGHT CORONARY ARTERY: Angiographically normal COMPLICATIONS No Complications PROCEDURE MEDICATIONS Oxygen: 2 L/min via nasal cannula SUMMARY OF HEMODYNAMIC DATA Time AIR REST ECG 07:19:20 AO 129/68 (91) SA 08:12:38 LV 128/-15, 16 08:18:37 LVp 132/-20, 17 08:18:43 AOp 129/65 (91) 08:18:48 Signed By Norris Calderon MD On 02/11/2020 08:27:14 Norris Calderon MD
== END 2020-02-11 12:40 | disposition home or self-care (01) ==
PROVIDERS: PCP Internal Medicine; Referring Provider Internal Medicine Cardiovascular Disease; Visit Provider Internal Medicine Cardiovascular Disease
DX: I25.10 Atherosclerotic heart disease of native coronary artery without angina pectoris (principal); E78.5 Hyperlipidemia, unspecified; G47.31 Primary central sleep apnea; I10 Essential (primary) hypertension; Z87.891 Personal history of nicotine dependence; Z95.5 Presence of coronary angioplasty implant and graft; R07.9 Chest pain, unspecified; R00.1 Bradycardia, unspecified
CPT/HCPCS: 36415; 71046; 80048; 85027; 85610; 85730; 93005; 93458; J7040; C1769; C1894; Q9967

== ENCOUNTER → 2020-03-06 11:03 | Outpatient (CLI) | payer MEDICARE, OTHER, SELFPAY ==
[2018-09-21 09:18] VITALS: BMI 29.2
[2020-02-10 09:39] VITALS: BMI 29.0
--- NOTE | 2020-03-06 11:09 | VDLE_ITS ---
Reason For Study: pain in left leg RIGHT LEFT CFV is compressible, spontaneous, phasic, GSV is normal. competent and demonstrates normal CFV is compressible, spontaneous, phasic, augmentation. competent, and demonstrates normal Procedure augmentation. Exam performed in department. FV is compressible, spontaneous, phasic, A preliminary report was called and/or faxed competent and demonstrates normal to Haresh. augmentation. POP V is compressible, spontaneous, phasic, competent and demonstrates normal augmentation. T/P Trunk is compressible. PTV is compressible. LT PerV is compressible. Large nonvascularized structure noted within the left prox-mid calf muscle. Interpretation Summary Deep veins of the left lower extremity are patent and compressible segmentally. There is no evidence of left lower extremity deep vein thrombosis. Valvular competence appears intact within the proximal deep venous system on the left . The left great saphenous vein appears patent and compressible segmentally. A large, non-vascular structure is noted in the left proximal and mid-calf musculature. This may represent a hematoma. Clinical correlation is advised. Ordering Physician: Page Hutson Referring Physician: Marily Masterson Performed By: Piper Hunter RVT
== END ==
PROVIDERS: PCP Internal Medicine; Visit Provider Registered Nurse
DX: M79.662 Pain in left lower leg (principal)
CPT/HCPCS: 93971

== ENCOUNTER → 2020-03-09 09:59 | Outpatient (CLI) | payer MEDICARE, OTHER, SELFPAY ==
[2018-09-21 09:18] VITALS: BMI 29.2
[2020-02-10 09:39] VITALS: BMI 29.0
--- NOTE | 2020-03-09 10:10 | CT_ITS ---
STUDY: CT SCAN LEG LEFT REASON FOR EXAM: Male, 75 years old. PAIN IN LT LOWER LEG,REDNESS/SWELLING X 2 WKS RADIATION DOSAGE (If Supplied By Facility): CTDIvol = ( 15.35 ) mGy, DLP = ( 745.21 ) mGycm. Individualized dose optimization techniques were used for this CT.? TECHNIQUE: Multiple axial tomographic images were obtained from the knee joint down to the ankle joint without intravenous contrast administration. Coronal and sagittal reconstruction was obtained as well. COMPARISON: None. FINDINGS: There is evidence of the venous varicosities in the subcutaneous tissues along the medial aspect of the left leg. There is evidence of a skin thickening with increased markings in the subcutaneous fat overlying the medial aspect of the left leg. There is evidence of a small fluid collection along the medial compartment of the left leg proximally. This extends over a distance of 5.4 cm. This collection measures 1.3 cm in transverse dimension. This extends into the anterior aspect of the medial gastrocnemius muscle. The bony structures are unremarkable. CT/Extremity Lower without Contra IMPRESSION: Varicosities. Skin thickening and subcutaneous edema with evidence of fluid collection in the medial compartment of the left leg surrounding the medial gastrocnemius muscle. Electronically Signed: Vini Wilburn, at 13:08 EDT , Service support ,
== END ==
PROVIDERS: PCP Internal Medicine; Referring Provider Registered Nurse; Visit Provider Registered Nurse
DX: M79.662 Pain in left lower leg (principal); R22.42 Localized swelling, mass and lump, left lower limb
CPT/HCPCS: 73700

== ENCOUNTER → 2020-07-02 07:47 | Outpatient (CLI) | payer MEDICARE, OTHER, SELFPAY ==
[2018-09-21 09:18] VITALS: BMI 29.2
[2020-05-28 07:35] VITALS: BMI 28.7
[2020-07-02 08:15] VITALS: PULSE 61; PULSE 70; PULSE 83; PULSE 85; O2SAT 95; O2SAT 96; O2SAT 97
--- NOTE | 2020-07-03 10:08 | PCM.PSN.6M ---
PSN 6 Minute Walk Test - 6 Minute Walk Test 6 Minute Walk Test: 6 Minute Walk Test PSN:6-Minute Walk Test Start: 07/02/20 08:23 Freq: Status: Active Protocol: [id number].[id number] Document 07/02/20 08:15 GIGI (Rec: 07/02/20 08:27 [id number]) 6 Minute Walk Test Date Performed 07/02/20 Time Performed 08:15 Height 5 ft 11 in Weight: 208 lb Weight in Pounds 208.[address]: Amanda Schneider VOLTAGE TESTER FIO2 (% Oxygen) 21 Assistive device used: None Pre-test Oxygen Delivery Method Room Air Pulse Ox (%) 96 Pulse Rate (60-100 beats/min) 61 Dyspnea Hawk Scale (0-10) 0 Exertion Hawk Scale (6-20) 6 1st minute Oxygen Delivery Method Room Air Pulse Ox (%) 97 Pulse Rate (60-100 beats/min) 85 2nd minute Oxygen Delivery Method Room Air Pulse Ox (%) 96 Pulse Rate (60-100 beats/min) 83 3rd minute Oxygen Delivery Method Room Air Pulse Ox (%) 97 Pulse Rate (60-100 beats/min) 85 4th minute Oxygen Delivery Method Room Air Pulse Ox (%) 96 Pulse Rate (60-100 beats/min) 85 Number of Rests Taken 1 5th minute Oxygen Delivery Method Room Air Pulse Ox (%) 96 Pulse Rate (60-100 beats/min) 83 6th minute Oxygen Delivery Method Room Air Pulse Ox (%) 95 Pulse Rate (60-100 beats/min) 83 Post-test Oxygen Delivery Method Room Air Pulse Ox (%) 96 Pulse Rate (60-100 beats/min) 70 Dyspnea Hawk Scale (0-10) 2 Exertion Hawk Scale (6-20) 11 Full Laps Walked 15 Partial Lap, Number of Tiles Walked 0 Total Distance Walked (ft) 885 - Interpretation Interpretation: The patient ambulated 885 feet over the course of 6 minutes beginning on room air without assistive devices or breaks. Pretesting oxygen saturation was noted to be 96% on room air. With ambulation, the gricelda oxygen saturation was 95%. There was no significant exertional oxygen desaturation. - Recommendations Recommendations: There is no indication for the use of supplemental oxygen at this time.
== END ==
PROVIDERS: PCP Internal Medicine; Referring Provider Nurse Practitioner Acute Care; Visit Provider Nurse Practitioner Acute Care
DX: R06.02 Shortness of breath (principal)
CPT/HCPCS: 94618

== ENCOUNTER → 2020-07-07 10:27 | Outpatient (CLI) | payer MEDICARE, OTHER, SELFPAY ==
[2018-09-21 09:18] VITALS: BMI 29.2
[2020-05-28 07:35] VITALS: BMI 28.7
--- NOTE | 2020-07-07 14:20 | PFTCOMP_ITS ---
COMPLETE PULMONARY FUNCTION TEST INTERPRETATION Brief HPI: Patient is a 75 year old male, currently under the care of Amanda Schneider, who presents to [facility] for complete pulmonary function tests secondary to diagnosis of dyspnea. Respiratory therapist reports good effort and reproducible results. Interpretation: Forced expiration spirometry shows no large airways obstructive ventilatory defect with an FEV1 of 91% predicted. There is no significant bronchodilator response by strict ATS criteria. Spirograms are of good quality and plateau slowly, indicating slowly emptying areas of the lungs. The respiratory flow volume loop shows decreased expiratory flow rates at high lung volumes consistent with small airways obstruction. Lung volumes by body plethysmography show a normal total lung capacity at 6.16 L, 92% predicted. All other lung volumes are within normal limits. Diffusion capacity by carbon monoxide is normal at 102% predicted. The airway resistance is normal. Compared to previous pulmonary function tests from 11/26/2018, there has been no significant change. Impression: Normal pulmonary function testing with no significant change compared to previous.
== END ==
PROVIDERS: PCP Internal Medicine; Referring Provider Nurse Practitioner Acute Care; Visit Provider Nurse Practitioner Acute Care
DX: R06.02 Shortness of breath (principal)
CPT/HCPCS: 94060; 94726; 94729

== ENCOUNTER → 2020-08-18 15:02 | Outpatient (CLI) | payer MEDICARE, OTHER, SELFPAY ==
[2018-09-21 09:18] VITALS: BMI 29.2
[2020-08-18 12:05] VITALS: BMI 28.8
[2020-08-18 16:41] LABS: AST(SGOT) 23 U/L (15-37); Alanine Aminotransfer ALT/SGPT 22 U/L (16-61); Albumin, Serum 3.8 g/dL (3.2-5.0); Alkaline Phosphatase 50 U/L (45-117); Bilirubin, Direct 0.07 mg/dL (0.00-0.30); Cholesterol 162 mg/dL (200); Globulin 3.5 g/dL (2.2-4.2); High Density Lipoprotein 34 mg/dL; Protein, Total 7.3 g/dL (6.4-8.2); Triglycerides 97 mg/dL; Very Low Density Lipoprotein 19 mg/dL (5-40)
== END ==
PROVIDERS: PCP Internal Medicine; Visit Provider Internal Medicine Cardiovascular Disease
DX: E78.00 Pure hypercholesterolemia, unspecified (principal)
CPT/HCPCS: 36415; 80061; 80076

== ENCOUNTER → 2021-04-01 05:29 | Outpatient (CLI) | payer MEDICARE, OTHER, SELFPAY ==
[2018-09-21 09:18] VITALS: BMI 29.2
[2020-09-24 10:13] VITALS: BMI 29.0
--- NOTE | 2021-04-01 17:21 | STRESSREP ---
Stress Test Report Exercise myocardial perfusion stress test. 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 Stress protocol: Resting EKG demonstrates sinus bradycardia with a rate of 59 bpm normal intervals are noted resting blood pressure is 116/78 mmHg. The patient exercised according to the regular Devang protocol for total duration of 7 minutes patient completed 1 minute into stage III of the Devang protocol. The maximum heart rate attained was 122 bpm which was 83% of maximum predicted heart rate the maximum workload was 8.5 metabolic equivalents. At rest there were no ST or T wave changes noted to suggest ischemia and at peak exercise upsloping ST changes were noted which did not meet the criteria for ischemia. The patient had moderate dyspnea throughout the test and the test was terminated due to the above. No clinical angina per se was noted. The peak blood pressure was 124/74 mmHg which was a blunted blood pressure response to exercise. Myocardial perfusion protocol. 10.9 mCi of technetium 99m sestamibi was injected at rest. The patient exercised for 7 minutes and at peak exercise 32.6 mCi of technetium 99m sestamibi was injected stress images were obtained stress and rest images were reconstructed and compared in the short axis vertical long and horizontal long axis. Gated images were also obtained. Perfusion SPECT analysis: Review of the stress images demonstrate normal uptake of tracer noted in all areas of the myocardium the resting images similarly demonstrate normal uptake of tracer noted in all areas of the myocardium. No areas of reversibility are noted to suggest ischemia no previous infarct is noted. Gated SPECT analysis: The gated ejection fraction is 63%. Conclusion: Exercise myocardial perfusion stress test with no evidence of ischemia at a moderate workload. No clinical angina noted.
== END ==
PROVIDERS: PCP Internal Medicine; Referring Provider Internal Medicine Cardiovascular Disease; Visit Provider Internal Medicine Cardiovascular Disease
DX: R07.9 Chest pain, unspecified (principal); R06.00 Dyspnea, unspecified; I25.10 Atherosclerotic heart disease of native coronary artery without angina pectoris; I10 Essential (primary) hypertension; E78.5 Hyperlipidemia, unspecified; Z95.5 Presence of coronary angioplasty implant and graft
CPT/HCPCS: 78452; 93017; A9500; A4216

== ENCOUNTER → 2021-05-04 11:00 | Outpatient (CLI) | payer MEDICARE, OTHER, SELFPAY ==
[2018-09-21 09:18] VITALS: BMI 29.2
[2020-09-24 10:13] VITALS: BMI 29.0
== END ==
PROVIDERS: PCP Internal Medicine; Visit Provider Nurse Practitioner Acute Care
DX: G47.31 Primary central sleep apnea (principal)
CPT/HCPCS: 98960; G0463